=== PATIENT | female | born 1945 | race African-American/Black ===

== ENCOUNTER 2020-05-08 15:32 | Outpatient (REF) | payer MEDICARE, SELFPAY | END 2020-05-08 15:33 | disposition home or self-care (01) | LOC: HO.LAB 15:32 | PROVIDERS: Visit Provider Internal Medicine | DX: Z20.822 Contact with and (suspected) exposure to COVID-19 (principal) | CPT/HCPCS: 36415; C9803; U0003 ==

== ENCOUNTER 2021-04-02 16:21 | Outpatient (REF) | payer MEDICARE, SELFPAY ==
--- NOTE | ~2021-04-02 | XR_ITS ---
EXAMINATION: XR KNEE, RIGHT CLINICAL INFORMATION: Right knee pain COMPARISON: None TECHNIQUE: Four views of the right knee. This includes AP upright view. FINDINGS: No fracture or subluxation. Mild medial compartment joint space narrowing at the patellofemoral compartment joint space narrowing. Enthesophyte formation of the patella. No joint effusion. The soft tissues are unremarkable. XR/XR knee RT 4V IMPRESSION: Mild narrowing of the medial and patellofemoral compartments.
== END 2021-04-02 16:22 | disposition home or self-care (01) ==
LOC: HO.XRAY 16:21
PROVIDERS: PCP Family Medicine; Visit Provider Family Medicine
DX: M25.561 Pain in right knee (principal)
CPT/HCPCS: 73564

== ENCOUNTER 2021-04-06 13:47 | Outpatient (REF) | payer MEDICARE, SELFPAY ==
--- NOTE | ~2021-04-06 | MR_ITS ---
EXAMINATION: MR BRAIN WITHOUT AND WITH CONTRAST CLINICAL INFORMATION: 75-year-old with new onset right-sided headaches and nystagmus. COMPARISON: None. TECHNIQUE: Multiplanar, multisequence MRI of the brain was obtained before and after the intravenous administration of 8.5 mL Gadavist. FINDINGS: Brain Volume: Mild diffuse generalized brain parenchymal volume loss without focal disproportionate regional predominance. Structural: No malformations. Brain and Meninges: DWI sequence demonstrates no restricted diffusion. Specifically, there is no evidence for acute or subacute cerebral ischemia. There are scattered small, subcentimeter foci of FLAIR/T2 signal hyperintensity with no abnormal enhancement seen within the subcortical and deeper white matter of both cerebral hemispheres, which are nonspecific findings but likely reflect small zones of chronic ischemic microangiopathy in a patient of this age. There is no evidence for hemorrhage, hemosiderin staining or abnormal mineral deposition. No extra-axial fluid collections, intracranial mass lesions, abnormal enhancement, space-occupying process or mass effect are identified. Ventricles and Subarachnoid Spaces: The ventricular system and subarachnoid spaces are consistent with mild generalized volume loss without hydrocephalus. Orbital Structures: The visualized orbital structures are grossly unremarkable within the limitations of the study. Vascular: Signal voids are noted in the visualized major intracranial vessels. 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 Osseous marrow signal intensity is otherwise within normal limits. MR/MR head/brain wo/w con IMPRESSION: 1. 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 Migraine associated vasculopathy would be another consideration. 2. No intracranial mass lesion, abnormal enhancement, infarction, extra-axial fluid collection, hemorrhage, space-occupying process, mass effect or hydrocephalus. 3. 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
== END 2021-04-06 13:48 | disposition home or self-care (01) ==
LOC: HO.MRI 13:47
PROVIDERS: PCP Family Medicine; Visit Provider Family Medicine
DX: R51.9 Headache, unspecified (principal)
CPT/HCPCS: 70553; A9585

== ENCOUNTER → 2021-06-20 14:55 | Outpatient (BNVA) | payer MEDICARE, SELFPAY | PROVIDERS: PCP Family Medicine; Visit Provider Physician Assistant | DX: M17.10 Unilateral primary osteoarthritis, unspecified knee (principal) | CPT/HCPCS: 99202 ==

== ENCOUNTER 2021-07-18 11:00 | Outpatient (RCR) | payer MEDICARE, SELFPAY | END 2021-09-10 09:44 | disposition home or self-care (01) | LOC: HO.PT 11:00 | PROVIDERS: PCP Family Medicine; Visit Provider Family Medicine | DX: M25.561 Pain in right knee (principal) | CPT/HCPCS: 97110; 97161 ==

== ENCOUNTER → 2021-09-12 12:41 | Outpatient (REF) | payer MEDICARE, SELFPAY ==
--- NOTE | 2021-09-12 | ECG_ITS ---
Hook-up date: 2021-09-12 11:59:00 Duration: 26:18:00 Test Indications: DIZZINESS Medications: [id number] QRS complexes 26844 Ventricular ectopics which represent 18 % of total QRS comp. 47157 Supraventricular ectopics which represent 11 % of total QRS comp. * Paced QRS complexs which represent % of total QRS comp. VENTRICULAR ECTOPY 77014 Isolated 6917 Bigeminal Cycles 1850 Couplets 22 Runs 74 Beats in Runs 5 Beats LONGEST at 150 BPM at 03:31:15 2021-09-13 3 Beats FASTEST at 182 BPM at 13:31:17 2021-09-12 SUPRAVENTRICULAR ECTOPY 8583 Isolated 1126 Couplets 592 Runs 2446 Beats in Runs 21 Beats LONGEST at 122 BPM at 18:40:50 2021-09-12 3 Beats FASTEST at 187 BPM at 12:48:20 2021-09-12 HEART RATES 46 MIN at 19:38:58 2021-09-12 77 AVG 168 MAX at 13:14:41 2021-09-12 LONGEST RR 1.7680 secs at 20:06:03 2021-09-12 S-T LEVELS Channel 1 - 128 mm at 11:59:00 2021-09-12 - 128 mm at 11:59:00 2021-09-12 Channel 2 - 128 mm at 11:59:00 2021-09-12 - 128 mm at 11:59:00 2021-09-12 Channel 3 - 128 mm at 03:11:81 -- - 128 mm at 03:11:81 Underlying rhythm is sinus; Average ventricular rate 77/min; range 46-168/min; Frequent ventricular ectopy (19% burden); isolated beats, couplets, bigeminy; no significant runs; Frequent supraventricular ectopy (11% burden); short runs noted, longest 21 beats; Patient did not report any symptoms in the diary Referred By: Sunita Lezama Overread By: PATRICIA SAMANIEGO
== END ==
LOC: HO.CARD 12:41
PROVIDERS: PCP Family Medicine; Visit Provider Family Medicine
DX: R42 Dizziness and giddiness (principal)
CPT/HCPCS: 93225; 93226

== ENCOUNTER → 2021-12-17 13:44 | Outpatient (REF) | payer MEDICARE, SELFPAY ==
--- NOTE | 2021-12-17 13:51 | CA_ITS ---
Transthoracic Echocardiogram Patient (Last, First, Middle): Erin Silvestre, Gender: Female Date of : 1945 Age: 76 Procedure Date: 12/17/2021 Procedure Type: Transthoracic Echocardiogram Location: OP Height: 162.56 cm Weight: 81.19 kg BSA: 1.87 m2 Heart Rate: 65 bpm BP: 132 / 74 mmHg Permastone Installer: SB Referring MD: Sunita Lezama MD Symptoms: I49.3 VENTRICULAR PREMATURE DEPOLARIZATION Study Quality: Adequate w contrast ECG Rhythm: Sinus Conclusions: - The left ventricular systolic function is normal. The visually estimated ejection fraction is between 60-65%. - No obvious valvular pathology seen on this study. Findings Procedure Information Contrast agent, definity, is being given per protocol without apparent complications. Left Ventricle Normal left ventricular cavity size. The left ventricular systolic function is normal. The visually estimated ejection fraction is between 60-65%. There is no evidence of regional wall motion abnormalities. Diastolic function is normal for age. There is mild septal asymmetric hypertrophy. Right Ventricle Normal right ventricular cavity size and systolic function. Atria Both atria are normal in size. Aortic Valve There is a normal trileaflet aortic valve. There is no aortic valve stenosis. There is trace (trivial) aortic valve regurgitation. Mitral Valve The mitral valve appears normal. There is trace mitral valve regurgitation. There is no mitral valve stenosis. Pulmonic Valve The pulmonic valve is likely normal. Tricuspid Valve Normal tricuspid valve structure. There is mild tricuspid valve regurgitation. The pulmonary artery systolic pressure is normal. Great Vessels The aortic annulus, sinuses of valsalva, asc aorta, and aortic arch are normal in size. Venous The inferior vena cava is normal in size and collapses greater than 50% with inspiration. Pericardium/Pleural There is no evidence of pericardial effusion. Prior Study Comparison No prior study available for comparison. Recommendations, Care & Conclusions No obvious valvular pathology seen on this study. Measurements 2D Linear Measurements IVSd: 1.27 0.6-0.9/0.6-1.0 cm LVIDd: 5.34 3.9-5.3/4.2-5.9 cm LVIDd Index: 2.86 2.4-3.2/2.2-3.1 cm/m2 LVIDs: 3.43 2.0-3.6 cm LVPWd: 0.96 0.7-1.1 cm LA Diam: 4.50 2.7-3.8/3.0-4.0 cm LAIDs Index: 2.41 1.5-2.3 cm/m2 LV Mass: 293.50 67-162/88-224 g LV Mass Index: 156.95 43-95/49-115 g/m2 LVOT Diam: 2.20 3.0+(-)1.3 cm 2D Systolic Function EF 4C: 69.40 >55% EF 2C: 58.20 >55% Mitral Valve MV Pk E: 0.53 MV PK A: 0.67 MV Decel Time: 215.00 E/A: 0.80 E'Lateral: 5.22 E'Medial: 3.92 E/E' Med: 13.50 E/E' Lat: 10.20 PHT: 63.00 MVA PHT: 3.49 Decel [place]: 2.47 Aortic Valve AoV Pk Luis A: 0.99 AoV Mn Luis A: 0.68 AoV VTI: 0.23 AoV Pk Grad: 4.00 Aov Mn Grad: 2.00 GRIS Cont.VTI: 3.14 LVOT LVOT Pk Luis A: 0.84 LVOT Mn Luis A: 0.57 LVOT VTI: 0.19 LVOT Pk Grad: 3.00 LVOT Mn Grad: 1.00 LVOT Diam: 2.20 LVOT Area: 3.80 Diastolic Function MV Pk E: 0.53 MV Pk A: 0.67 E/A: 0.80 E'Medial: 3.92 E/E' Med: 13.50 E' Laterial: 5.22 E/E' Lat: 10.20 Right Ventricle TAPSE (mm): 18.90 TVS' Luis A: 12.60 Tricuspid Valve TR Pk Luis A: 2.33 TR Pk Grad: 22.00 RA Press: 3.00 RVSP: 25.00 Great Vessels Aorta Sinus of Valsalva: 3.40 2.0-3.5 cm Ao Asc: 3.70 2.1-3.4 cm Ao Arch: 3.10 Ao Desc: 2.40 Pulmonary Valve PV Pk Luis A: 0.57 Peak PV Grad: 1.00 Updated in Other Vendor System with Status of Final Thien Gilliam MD electronically signed on 12/18/2021 11:15:32 AM with status of Final
== END ==
LOC: HO.CARD 13:44
PROVIDERS: Visit Provider Family Medicine
DX: I49.3 Ventricular premature depolarization (principal)
CPT/HCPCS: 93306; Q9957

== ENCOUNTER 2021-12-18 10:43 | Outpatient (REF) | payer MEDICARE, SELFPAY ==
--- NOTE | ~2021-12-18 | MM_ITS ---
EXAMINATION: BONE DENSITOMETRY CLINICAL INDICATION: Menopause. COMPARISON: This is the patient's baseline examination. TECHNIQUE: Using a [employer] DXA System (software version: 13.1) manufactured by [employer], dual-energy x-ray absorptiometry was performed of the lumbar spine and left hip. The images are of good technical quality. Summary results are attached. FINDINGS: AP SPINE L1-L4: BMD 1.015 g/cm2, Z-score -0.2, T-score -1.4, osteopenia. LEFT FEMUR, NECK: BMD 0.852 g/cm2, Z-score 0.1, T-score -1.3, osteopenia. LEFT FEMUR, TOTAL: BMD 0.946 g/cm2, Z-score 0.8, T-score -0.5, normal. IDENTIFIED RISK FACTORS: Menopause, hysterectomy, bilateral oophorectomy. HISTORY OF FRACTURE: None listed. MEDICATIONS: Calcium, vitamin D. MM/XR DEXA axial skeleton IMPRESSION: 1. DIAGNOSIS: Osteopenia based on the lowest T-score value of -1.4 in the lumbar spine applying World Health Organization criteria. 2. 10-YEAR FRACTURE RISK PREDICTION, FRAX: Major osteoporotic fracture (clinical spine, forearm, hip or shoulder) 5.7%. Hip fracture 0.9%. 3. Treatment Recommendations: NOF guidelines recommend consideration for treatment in postmenopausal women and men age 50 and older presenting with the following: -A hip or vertebral (clinical or morphometric) fracture. -T-score less than or equal to -2.5 at the femoral neck or spine after appropriate evaluation to exclude secondary causes. -Low bone mass at the hip or spine and a 10-year fracture probability by FRAX of greater than or equal to 3% for hip fracture or greater than or equal to 20% for major osteoporotic fracture based on the [place] adapted WHO algorithm. 4. Other Recommendations: All treatment decisions require clinical judgment and consideration of individual patient factors, including patient preferences, comorbidities, previous drug use, risk factors not captured in the FRAX model (e.g. frailty, falls, vitamin D deficiency, increased bone turnover, interval significant decline in bone density) and possible under or overestimation of fracture risk by FRAX. Additional medical evaluation for secondary cause of low bone mineral density may be appropriate. FUTURE SCAN RECOMMENDATION: People with diagnosed cases of osteoporosis or at high risk for fracture should have regular bone mineral density tests. For patients eligible for Medicare, routine testing is allowed once every 2 years. The testing frequency can be increased to one year for patients who have rapidly progressing disease, those who are receiving or discontinuing medical therapy to restore bone mass, or have additional risk factors.
== END 2021-12-18 10:44 | disposition home or self-care (01) ==
LOC: HO.MAMMO 10:43
PROVIDERS: Visit Provider Family Medicine
DX: Z13.820 Encounter for screening for osteoporosis (principal); Z78.0 Asymptomatic menopausal state
CPT/HCPCS: 77080

== ENCOUNTER → 2022-02-28 09:09 | Outpatient (BNVA) | payer MEDICARE, SELFPAY | PROVIDERS: PCP Family Medicine; Referring Provider Family Medicine; Visit Provider Internal Medicine Cardiovascular Disease | DX: I49.3 Ventricular premature depolarization (principal); I10 Essential (primary) hypertension | CPT/HCPCS: 93005; 99202 ==

== ENCOUNTER → 2022-04-11 10:16 | Outpatient (REF) | payer OTHER, SELFPAY ==
--- NOTE | 2022-04-11 10:19 | HM_ITS ---
* Total monitoring time 3 days. * Underlying rhythm is sinus. Average ventricular rate 75/Min. Range 54 to 116/Min. * Frequent supraventricular ectopy. [place] of 10%. Numerous short runs. Longest 21 beats. Suspect atrial tachycardia. * Rare ventricular ectopy. Low burden. One 3 beat run. * No pauses or AV blocks. * No patient diary. MTDD
== END ==
LOC: HO.CARD 10:16
PROVIDERS: PCP Family Medicine; Visit Provider Internal Medicine Cardiovascular Disease
DX: I49.3 Ventricular premature depolarization (principal)
CPT/HCPCS: 93242

== ENCOUNTER → 2022-04-17 09:38 | Outpatient (REF) | payer OTHER, SELFPAY ==
--- NOTE | 2022-04-17 09:41 | CA_ITS ---
Acquisition Time: 2022-04-17 10:11:09 Total Exercise Time: 00:00:18 Test Indications: Abnormal ECG Medications: ATORVASTATIN OMEPRAZOLE CARVEDILOL Protocol: ALPHONSO Max HR: 096 BPM 65% of Pred: 146 BPM Max BP: 132/070 mmHG Max Work Load: 1.5 METS Exercise stress test with exercise 18 sec of alphonso protocol and unable to keep up and maneuver walking on treadmill, with report of dizziness. Assisted to sitting position and once dizzines resolved, testing changed to pharmacological stress test with Lexiscan injection, while sitting and kicking legs, with isolated PACs and two brief runs of atrial tach, with normotensive response to injection, with nondiagnostic EKG for ischemia. Nuclear images pending. Test reviewed with Dr Lipscomb. Referred By: Juan Hdz Overread By: JORDAN JEROME
== END ==
LOC: HO.CARD 09:38
PROVIDERS: PCP Family Medicine; Visit Provider Internal Medicine Cardiovascular Disease
DX: I49.3 Ventricular premature depolarization (principal)
CPT/HCPCS: 78452; 93017; A9500; J0280; J2785

== ENCOUNTER → 2022-05-20 09:16 | Outpatient (BNVA) | payer OTHER, SELFPAY | PROVIDERS: PCP Family Medicine; Referring Provider Family Medicine; Visit Provider Internal Medicine Cardiovascular Disease | DX: I49.9 Cardiac arrhythmia, unspecified (principal); I10 Essential (primary) hypertension | CPT/HCPCS: 99212 ==

== ENCOUNTER 2022-06-18 08:17 | Emergency (ER) | payer MEDICARE, SELFPAY ==
--- NOTE | ~2022-06-18 | CT_ITS ---
EXAMINATION: CT ABDOMEN AND PELVIS WITH CONTRAST CLINICAL INFORMATION: Right upper quadrant/right lower quadrant abdominal pain and nausea. COMPARISON: None TECHNIQUE: Multidetector volumetric images were obtained from the superior aspect of the liver through the pubic symphysis following administration 85 mL of Omnipaque 350 intravenous contrast. Sagittal and coronal reformatted images were obtained on the technologist's workstation. Oral contrast: No This CT examination was performed using dose optimization techniques as appropriate, variously including the following: *Automated exposure control *Adjustment of mA and/or kV according to patient size (this includes techniques or standardized protocols for targeted exams where dose is matched to indication/reason for exam; i.e. extremities or head) *Use of iterative reconstruction technique DLP: 587 mGy-cm FINDINGS: LUNG BASES: The lung bases appear clear, with no evidence of inflammation or nodules. LIVER, GALLBLADDER, AND BILIARY TREE: The liver appears unremarkable in size, shape, and attenuation. No focal hepatic lesion or biliary ductal dilatation is appreciated. Status post cholecystectomy. PANCREAS: Unremarkable SPLEEN: Unremarkable ADRENAL GLANDS: Unremarkable KIDNEYS AND URETERS: The kidneys appear unremarkable in size, shape, and attenuation. No hydronephrosis, hydroureter, or calculi seen. BLADDER: Unremarkable GASTROINTESTINAL TRACT: The small and large bowel appear unremarkable. No diverticulosis. Normal-appearing distal ileum and vermiform appendix. ABDOMINAL WALL: No significant hernia is appreciated. LYMPH NODES: No evidence of adenopathy by size criteria. VASCULAR: Unremarkable PELVIC VISCERA: Status post hysterectomy. OSSEOUS STRUCTURES: Moderate disc degenerative change at L5-S1. CT/CT abdomen pelvis w IV con IMPRESSION: Essentially unremarkable CT scans of the abdomen and pelvis with intravenous contrast only.
--- NOTE | 2022-06-18 08:18 | ECG_ITS ---
Test Reason : dizzy Blood Pressure : / mmHG Vent. Rate : 067 BPM Atrial Rate : 067 BPM P-R Int : 120 ms QRS Dur : 088 ms QT Int : 404 ms P-R-T Axes : 055 011 028 degrees QTc Int : 426 ms Normal sinus rhythm Nonspecific ST and T wave abnormality Abnormal ECG No previous ECGs available Referred By: Generic ED Physician Electronically Signed By:PATRICIA SAMANIEGO
[2022-06-18 08:20] VITALS: BP 152/77; PULSE 73; RESP 18; TEMP 36.1; O2SAT 99; BMI 37.5
[2022-06-18 08:42] LABS: MANUAL DIFF FLAG NO
[2022-06-18 08:44] LABS: Basophils Absolute Auto 0.1 X10*3/uL (0.0-0.2); Basophils Percent Auto 0.6 % (0-2); Eosinophils Absolute Auto 0.1 X10*3/uL (0.0-0.4); Eosinophils Percent Auto 1.2 % (0-4); Hematocrit 41.1 % (37.0-47.0); Hemoglobin 13.8 g/dl (12.0-16.0); Imm Gran Abs Auto 0.09 X10*3/uL (0.00-0.03); Imm Gran Pct Auto 0.8 % (0.0-0.4); Lymphocytes Absolute Auto 2.1 X10*3/uL (1.2-4.9); Lymphocytes Percent Auto 19.1 % (20-40); Mean Corpuscular HGB Conc 33.6 g/dl (31.0-35.0); Mean Corpuscular Hemoglobin 29.6 pg (27.0-33.0); Mean Corpuscular Volume 88.2 fL (80.0-98.0); Mean Platelet Volume 9.5 fL (9.4-12.3); Monocytes Percent Auto 8.6 % (2-11); Neutrophils Absolute Auto 7.7 x10*3/uL (2.0-8.3); Neutrophils Percent Auto 69.7 % (45-73); Platelet Count 318 X10*3/uL (160-400); Red Blood Count 4.66 X10*6/uL (4.20-5.50); Red Cell Distribution Width 15.1 % (11.0-16.0)
[2022-06-18 08:57] VITALS: BP 149/80; PULSE 65; RESP 18; TEMP 36.6; O2SAT 97
[2022-06-18 08:59] LABS: Alanine Aminotransferase 23 U/L (0-31); Albumin Level 4.1 g/dL (3.5-5.0); Alkaline Phosphatase 55 U/L (39-117); Anion Gap 13 (12-20); Aspartate Amino Transferase 20 U/L (5-31); Bilirubin Direct 0.2 mg/dL (0.0-0.5); Bilirubin Total 0.5 mg/dL (0.0-1.0); Blood Urea Nitrogen 20 mg/dL (9-16); COVID-19 Test Negative (Negative); Calcium 9.8 mg/dL (8.4-10.2); Carbon Dioxide 26 mmol/L (22-29); Chloride 105 mmol/L (96-108); Creatinine Clr Calc Pharmacy 55.9; Estimated Glomerular Filt Rate > 60; Glucose Random 115 mg/dL (60-115); IDNOW Serial# 16C4AD1C; Lipase 50 U/L (8-78); Potassium 4.6 mmol/L (3.3-5.1); Sodium 139 mmol/L (135-145); Total Protein 6.9 g/dL (6.5-8.0)
[2022-06-18 09:01] LABS: IDNOW Serial# BCCEAD1C; Influenza A Negative (Negative); Influenza B2 Negative (Negative)
[2022-06-18 09:13] LABS: Troponin-I High Sensitivity < 3.5 ng/L (<3.5-17.0)
[2022-06-18] MEDS: Meclizine HCl 25 MG TABLET 50 MG PO (09:58)
[2022-06-18] MEDS: ondansetron HCL 4 MG/2 ML VIAL IVPUSH (09:58)
[2022-06-18] MEDS: 0.9 % Sodium Chloride 1,000 ML 999 ML IVCONT (09:58)
[2022-06-18 10:07] LABS: Magnesium 2.1 mg/dL (1.6-2.6)
[2022-06-18] MEDS: iohexoL 350 MG/ML 100 ML INFUS..BTL 85 ML IV (10:40)
[2022-06-18 11:29] VITALS: BP 141/78; PULSE 68; RESP 16; TEMP 36.6; O2SAT 97
--- NOTE | 2022-06-18 11:56 | ED.ABDPAIN ---
HPI - Abdominal Pain General Chief Complaint: Abdominal Pain Stated Complaint: Vomiting/Abd pain/Dizziness Time Seen by Provider: 06/18/22 09:41 Source: patient and family (Daughter at bedside) Mode of arrival: ambulatory Limitations: language barrier (Citizen [place]-speaking) History of Present Illness HPI narrative: 76yoF with a PMHx of HTN, HLD, GERD, PVC's and vertigo who is Citizen [place]-speaking presenting to the ER with her daughter with complaints of sudden onset of nausea/vomiting with right sided abdominal pain that started earlier this morning around 4-6am. She reports she normally takes medication for her vertigo although due to having nausea/vomiting this morning she took her medication and shortly after vomited therefore she has been having some dizziness. She reports the dizziness is similar to her vertigo episodes this is why she is on the dizziness medication daily. She denies any fevers, chills, change in vision, headaches, neck pain/stiffness, chest pain or shortness of breath, cough, sputum production, dyspnea on exertion, orthopnea palpitations, paresthesias, radiation of the abdominal pain, back pain, flank pain, dysuria, hematuria, abnormal vaginal discharge, black or bloody stools, diarrhea, constipation, lower extremity edema or calf tenderness, recent travel or sick contacts, possible bad food exposure, others with similar symptoms, recent antibiotic usage or any other symptoms complaints or concerns at this time. MD elicited complaint: abdominal pain Pertinent past history: other (See above) Onset (ago): hour(s) (Prior to arrival) Pain Consistency: constant Location: RUQ Severity: moderate Quality: aching Radiation: none Migration to: no migration Exacerbating factors: eating, vomiting and medication Relieving factors: nothing Associated symptoms: nausea, vomiting and chills Related Data Home Medications Medication Instructions Recorded Confirmed atorvastatin 20 mg tablet 20 mg PO DAILY 06/20/21 05/20/22 calcium carbonate 500 mg-vitamin 1 tab PO DAILY 06/20/21 05/20/22 D3 10 mcg (400 unit) chewable tablet clotrimazole 1 % topical cream appl topical 06/20/21 05/20/22 ketotifen fumarate 0.025 % (0.035 1 drp ophthalmic (eye) BID 06/20/21 05/20/22 %) eye drops omeprazole 20 mg capsule,delayed 20 mg PO DAILY PRN heartburn 06/20/21 05/20/22 release polyethylene glycol 3350 17 17 g PO DAILY 06/20/21 05/20/22 gram/dose oral powder carvedilol 3.125 mg tablet 3.125 mg PO BID 02/28/22 05/20/22 diclofenac sodium 75 mg 75 mg PO Q12H 05/20/22 05/20/22 tablet,delayed release meclizine 12.5 mg tablet 12.5 mg PO Q8H PRN dizziness 05/20/22 05/20/22 Previous Rx's Medication Instructions Recorded dicyclomine 10 mg capsule 10 mg PO TID Abdominal cramping 06/18/22 #14 caps ondansetron 4 mg disintegrating 4 mg PO Q8H Nausea and vomiting 06/18/22 tablet #14 tabs Allergies Allergy/AdvReac Type Severity Reaction Status Date / Time penicillin V Allergy Mild Itching Verified 05/20/22 09:21 Review of Systems Review of Systems Constitutional : No Fever, + Chills, No Night Sweats, + Fatigue, + Malaise Cardiovascular : No Chest Pain, No SOB Respiratory : No Cough, No Sputum, No Wheezing, No Dyspnea Gastrointestinal : + Nausea, + Vomiting, No Diarrhea, + abdominal Pain, No Hematochezia, No Melena Genitourinary : No irregular bleeding, No Dysuria, No Urinary Frequency, No Hematuria,No Urinary Incontinence, No Urgency, No Flank Pain Musculoskeletal : No joint pain, + Myalgias, No Joint Swelling Skin : No Skin Lesions, No rash Neuro : No Weakness, No Numbness, No Paresthesias, No Loss of Consciousness, + chronic Dizziness, No Headache Heme/Lymph: No Lymphadenopathy Endocrine : No Temperature Intolerance Yes all other systems are reviewed and are negative [facility] Past Medical History Attestation statement: The following information was validated with the patient. Source: old records reviewed, obtained from family and nursing notes reviewed Medical History HTN (hypertension) Social History Social History Household Members: None Housing: Apartment Alcohol intake: never Patient Tobacco Use Status: Never used Tobacco Smoked in Last 30 Days: No Use of substances other than those prescribed or required for medical reasons: No Advance Directives: No Advance Directives Information Provided: Yes Physical Exam ED Vital Signs: Vital Signs - 24 hr 06/18/22 08:20 06/18/22 08:57 06/18/22 11:29 Temperature 96.9 F 97.9 F 97.9 F Pulse Rate 73 65 68 Respiratory Rate 18 18 16 Blood Pressure 152/77 H 149/80 H 141/78 H Pulse Oximetry 99 97 97 Oxygen Delivery Method Room Air Room Air Room Air BMI result Body Mass Index 37.5 Vital signs reviewed and patient blood pressure 152/77 otherwise all other vitals are within normal limits. Appearance: Alert. Oriented X3. No acute distress. Head: Normal external exam. Normocephalic. Atraumatic. Able to rotate head bilaterally. Eyes: PERRLA. EOMI. No nystagmus noted. Conjunctiva and sclera normal. Eyelids normal. Corneal reflex normal. ENT: EAC normal. TM's Normal. Hearing normal. Pharynx normal. Uvula midline. tongue midline. Moist mucous membranes. No trismus noted. No drooling noted. No muffled voice noted. No nystagmus noted. Neck: Normal inspection. Neck supple. FROM. No adenopathy. Trachea midline. Thyroid Normal. No meningeal signs. No neck mass noted. CVS: Normal heart rate and rhythm. Heart sound normal. No murmurs noted. Pulses normal throughout. Respiratory: No respiratory distress. Painless inspiration. Breath sounds normal. No wheezes/rales/rhonchi noted. Chest nontender. No accessory muscle usage noted or decreased air movement noted. Abdomen: Soft and tenderness palpation to right upper quadrant with guarding. Nondistended. No rigidity. Bowel sounds normal in all 4 quadrants. No distention noted.? No organomegaly noted.? No visible injury noted.? No rebound tenderness.? Negative Rovsing sign.? Negative obturator's sign.? Negative psoas sign.? Negative Hobson sign. Back: No CVA tenderness. Full range of motion noted. Skin: Skin warm and dry. Normal skin color. Normal skin turgor. No rashes/lesions/lacerations noted. Extremities: No lower extremity edema. Extremities exhibit normal range of motion. Extremities nontender. Able to shrug shoulders bilaterally and keep up against resistance. Neuro: Oriented X 3. No motor deficit. No sensory deficit. Reflexes normal. Moving all extremities. No focal motor deficits. Cranial nerves II-XI intact bilaterally. Facial strength normal. Normal cognition. Speech normal. Gait normal. Strength 5/5 throughout. No pronator drift. No tremor noted. No fasciculations noted. No rigidity noted. Muscle tone normal throughout. No asterixis noted. Obtzpy-rd-nxmy test normal. Heel to contreras test normal. Tandem gait normal. Does not sway with eyes open. Romberg test negative. Rapid alternating movement upper extremity normal. Rapid alternating movement lower extremity normal. Hand drop from overhead Misses face. NIHSS score 0. Course Course Course Narrative: 76yoF with a PMHx of HTN, HLD, GERD, PVC's and vertigo who is Citizen [place]speaking presenting to the ER with her daughter with complaints of sudden onset of nausea/vomiting with right sided abdominal pain that started earlier this morning around 4-6am. She reports she normally takes medication for her vertigo although due to having nausea/vomiting this morning she took her medication and shortly after vomited therefore she has been having some dizziness. She reports the dizziness is similar to her vertigo episodes this is why she is on the dizziness medication daily. This patient presents with nausea, vomiting and abd pain. Differential diagnoses includes possible acute gastroenteritis. Abdominal exam without peritoneal signs. Currently euvolemic without evidence of dehydration. No evidence of surgical abdomen or other acute medical emergency including bowel obstruction, viscus perforation, vascular catastrophe, atypical appendicitis, acute cholecystitis at this time. Presentation not consistent with other acute, emergent causes of vomiting at this time. Not consistent with CVA or TIA or ACS as patient reports this is her chronic dizziness and she was unable to take her medication for her dizziness that she takes daily due to her nausea/vomiting. She also has a normal neuro exam. NIH SS score 0. Patient will be a non tPA candidate due to non disabling symptoms. Normal steady gait. Labs reviewed patient with leukocytosis of 11,000. BUN 20. Otherwise all other labs are within normal limits. Patient negative for COVID influenza. CT scan abdomen pelvis unremarkable no acute processes are noted. Patient is now tolerating p.o. fluids. She reports her dizziness has completely resolved. She has a normal steady gait. Reports that she would like to go home does not feel like she needs admission although I did offer admission. Therefore at this time will DC home with symptomatic treatment instructions return if any new or worsening symptoms to follow up with primary care provider. Patient with daughter at bedside understand agree this plan. Medical Decision Making Lab Data MDM Lab Attestation statement: I reviewed the patient's lab results. 06/18/22 08:36 06/18/22 08:35 Labs: Lab Results 06/18/22 06/18/22 06/18/22 Range/Units 08:35 08:35 08:35 WBC (4.8-10.8) X10*3/uL RBC (4.20-5.50) X10*6/uL Hgb (12.0-16.0) g/dl Hct (37.0-47.0) % MCV (80.0-98.0) fL MCH (27.0-33.0) pg MCHC (31.0-35.0) g/dl RDW (11.0-16.0) % Plt Count (160-400) X10*3/uL MPV (9.4-12.3) fL Immature Gran % (Auto) (0.0-0.4) % Neut % (Auto) (45-73) % Lymph % (Auto) (20-40) % [place] % (Auto) (2-11) % Eos % (Auto) (0-4) % Baso % (Auto) (0-2) % Lymph # (Auto) (1.2-4.9) X10*3/uL [place] # (Auto) (0.1-1.2) X10*3/uL Eos # (Auto) (0.0-0.4) X10*3/uL Baso # (Auto) (0.0-0.2) X10*3/uL Abs Immat Gran (auto) (0.00-0.03) X10*3/uL Absolute Neuts (auto) (2.0-8.3) x10*3/uL Absolute Nucleated RBC (0.0-0.012) X10*3/uL Nucleated RBC % (auto) (0.0-0.2) /100WBC Sodium 139 (135-145) mmol/L Potassium 4.6 (3.3-5.1) mmol/L Chloride 105 (96-108) mmol/L Carbon Dioxide 26 (22-29) mmol/L Anion Gap 13 (12-20) BUN 20 H (9-16) mg/dL Creatinine 0.83 (0.5-1.4) mg/dL Estim Creat Clear Calc 55.9 Estimated GFR > 60 Random Glucose 115 (60-115) mg/dL Calcium 9.8 (8.4-10.2) mg/dL Magnesium 2.1 (1.6-2.6) mg/dL Total Bilirubin 0.5 (0.0-1.0) mg/dL Direct Bilirubin 0.2 (0.0-0.5) mg/dL AST 20 (5-31) U/L ALT 23 (0-31) U/L Alkaline Phosphatase 55 (39-117) U/L Troponin I High Sens < 3.5 (<3.5-17.0) ng/L Total Protein 6.9 (6.5-8.0) g/dL Albumin 4.1 (3.5-5.0) g/dL Lipase 50 (8-78) U/L COVID-19 (EVER) (Negative) COVID-19 Clin Com Influenza Type A (ROMA) Negative (Negative) Influenza Type B (ROMA) Negative (Negative) Influenza A & B Note See Note 06/18/22 06/18/22 Range/Units 08:35 08:36 WBC 11.0 H (4.8-10.8) X10*3/uL RBC 4.66 (4.20-5.50) X10*6/uL Hgb 13.8 (12.0-16.0) g/dl Hct 41.1 (37.0-47.0) % MCV 88.2 (80.0-98.0) fL MCH 29.6 (27.0-33.0) pg MCHC 33.6 (31.0-35.0) g/dl RDW 15.1 (11.0-16.0) % Plt Count 318 (160-400) X10*3/uL MPV 9.5 (9.4-12.3) fL Immature Gran % (Auto) 0.8 H (0.0-0.4) % Neut % (Auto) 69.7 (45-73) % Lymph % (Auto) 19.1 L (20-40) % [place] % (Auto) 8.6 (2-11) % Eos % (Auto) 1.2 (0-4) % Baso % (Auto) 0.6 (0-2) % Lymph # (Auto) 2.1 (1.2-4.9) X10*3/uL [place] # (Auto) 1.0 (0.1-1.2) X10*3/uL Eos # (Auto) 0.1 (0.0-0.4) X10*3/uL Baso # (Auto) 0.1 (0.0-0.2) X10*3/uL Abs Immat Gran (auto) 0.09 H (0.00-0.03) X10*3/uL Absolute Neuts (auto) 7.7 (2.0-8.3) x10*3/uL Absolute Nucleated RBC 0.000 (0.0-0.012) X10*3/uL Nucleated RBC % (auto) 0.0 (0.0-0.2) /100WBC Sodium (135-145) mmol/L Potassium (3.3-5.1) mmol/L Chloride (96-108) mmol/L Carbon Dioxide (22-29) mmol/L Anion Gap (12-20) BUN (9-16) mg/dL Creatinine (0.5-1.4) mg/dL Estim Creat Clear Calc Estimated GFR Random Glucose (60-115) mg/dL Calcium (8.4-10.2) mg/dL Magnesium (1.6-2.6) mg/dL Total Bilirubin (0.0-1.0) mg/dL Direct Bilirubin (0.0-0.5) mg/dL AST (5-31) U/L ALT (0-31) U/L Alkaline Phosphatase (39-117) U/L Troponin I High Sens (<3.5-17.0) ng/L Total Protein (6.5-8.0) g/dL Albumin (3.5-5.0) g/dL Lipase (8-78) U/L COVID-19 (EVER) Negative (Negative) COVID-19 Clin Com See Note Influenza Type A (ROMA) (Negative) Influenza Type B (ROMA) (Negative) Influenza A & B Note Independent Interpretation I performed an independent interpretation of an: CT Scan (Unremarkable I reviewed this with the patient and her daughter at bedside they understand) Radiology Impression Discussion of test interpretation with radiology: I have reviewed the radiologist's reading. Radiologist Impression: FINDINGS: LUNG BASES: The lung bases appear clear, with no evidence of inflammation or nodules.? LIVER, GALLBLADDER, AND BILIARY TREE: The liver appears unremarkable in size, shape, and attenuation. No focal hepatic lesion or biliary ductal dilatation is appreciated. Status post cholecystectomy.? PANCREAS: Unremarkable? SPLEEN: Unremarkable? ADRENAL GLANDS: Unremarkable? KIDNEYS AND URETERS: The kidneys appear unremarkable in size, shape, and attenuation. No hydronephrosis, hydroureter, or calculi seen. ? BLADDER: Unremarkable? GASTROINTESTINAL TRACT: The small and large bowel appear unremarkable. No diverticulosis. Normal-appearing distal ileum and vermiform appendix.? ABDOMINAL WALL: No significant hernia is appreciated.? LYMPH NODES: No evidence of adenopathy by size criteria. VASCULAR: Unremarkable PELVIC VISCERA: Status post hysterectomy. OSSEOUS STRUCTURES: Moderate disc degenerative change at L5-S1.? CT/CT abdomen pelvis w IV con IMPRESSION: ? Essentially unremarkable CT scans of the abdomen and pelvis with intravenous contrast only. Independent Historian Clinical information obtained from an independent historian. History obtained from or confirmed by: Other (Daughter at bedside) External Record Review External record reviewed: Inpatient record, Office record, Outpatient record, Prior outpatient labs, Prior outpatient radiology, Primary care record and Outside ED record I viewed the patient's old records in our EMR. Prescription Management I considered prescription management with: Other (Give the patient antiemetics.) Medications Administered Discontinued Medications Generic Name Dose Route Start Last Admin Trade Name Freq PRN Reason Stop Dose Admin Sodium Chloride 1,000 mls @ 999 mls/hr 06/18/22 10:00 06/18/22 10:59 Ns IVCONT 06/18/22 11:00 Infused .Q1H1M ELLIS Infusion Iohexol 85 ml 06/18/22 10:39 06/18/22 10:40 Iohexol 350 Mg/Ml 100 Ml Infus..Btl IV 06/18/22 10:40 85 ml ONCE ONE Administration Meclizine HCl 50 mg 06/18/22 09:52 06/18/22 09:58 Meclizine Hcl 25 Mg Tablet PO 06/18/22 09:53 50 mg ONCE ONE Administration Ondansetron HCl 4 mg 06/18/22 09:50 06/18/22 09:58 Ondansetron Hcl 4 Mg/2 Ml Vial IVPUSH 06/18/22 09:51 4 mg ONCE ONE Administration Discharge Plan Discharge Clinical Impression: Gastroenteritis Patient Disposition: Home, Self-Care Instructions: Gastroenteritis (ED) Prescriptions: New ondansetron 4 mg tablet,disintegrating 4 mg PO Q8H Qty: 14 0RF dicyclomine 10 mg capsule 10 mg PO TID Qty: 14 0RF No Action polyethylene glycol 3350 17 gram/dose powder 17 g PO DAILY clotrimazole 1 % cream topical calcium carbonate-vitamin D3 500 mg-10 mcg (400 unit) tablet,chewable 1 tab PO DAILY atorvastatin 20 mg tablet 20 mg PO DAILY omeprazole 20 mg capsule,delayed release(DR/EC) 20 mg PO DAILY PRN (Reason: heartburn) ketotifen fumarate 0.025 % (0.035 %) drops 1 drp ophthalmic (eye) BID carvedilol 3.125 mg tablet 3.125 mg PO BID diclofenac sodium 75 mg tablet,delayed release (DR/EC) 75 mg PO Q12H meclizine 12.5 mg tablet 12.5 mg PO Q8H PRN (Reason: dizziness) Referrals: Sunita Lezama MD [Primary Care Provider] - 2 days Print Language: Citizen [place]
== END 2022-06-18 12:09 | disposition home or self-care (01) ==
PROVIDERS: Physician Assistant Medical; Emergency Provider Emergency Medicine; PCP Family Medicine
DX: K52.9 Noninfective gastroenteritis and colitis, unspecified (principal); R11.2 Nausea with vomiting, unspecified; I10 Essential (primary) hypertension; E78.5 Hyperlipidemia, unspecified; Z79.02 Long term (current) use of antithrombotics/antiplatelets; Z79.899 Other long term (current) drug therapy; Z20.822 Contact with and (suspected) exposure to COVID-19
CPT/HCPCS: 74177; 80053; 82248; 83690; 83735; 84484; 85025; 87502; 87635; 93005; 99284; 99285; J2405; Q9967

== ENCOUNTER 2022-10-24 17:11 | Emergency (ER) | payer MEDICARE, SELFPAY ==
--- NOTE | 2022-10-24 17:24 | ED_ITS ---
[facility] - General Adult General Chief complaint: Wound/Laceration Stated complaint: right foot laceration Time Seen by Provider: 10/24/22 19:13 Source: patient and family Mode of arrival: ambulatory History of Present Illness HPI narrative: 76-year-old female who presents with laceration to the inferior aspect of the right lateral malleolus. She is not a diabetic and is unsure of her last tetanus shot. Related Data Home Medications Medication Instructions Recorded Confirmed atorvastatin 20 mg tablet 20 mg PO DAILY 06/20/21 05/20/22 calcium carbonate 500 mg-vitamin 1 tab PO DAILY 06/20/21 05/20/22 D3 10 mcg (400 unit) chewable tablet clotrimazole 1 % topical cream appl topical 06/20/21 05/20/22 ketotifen fumarate 0.025 % (0.035 1 drp ophthalmic (eye) BID 06/20/21 05/20/22 %) eye drops omeprazole 20 mg capsule,delayed 20 mg PO DAILY PRN heartburn 06/20/21 05/20/22 release polyethylene glycol 3350 17 17 g PO DAILY 06/20/21 05/20/22 gram/dose oral powder carvedilol 3.125 mg tablet 3.125 mg PO BID 02/28/22 05/20/22 diclofenac sodium 75 mg 75 mg PO Q12H 05/20/22 05/20/22 tablet,delayed release meclizine 12.5 mg tablet 12.5 mg PO Q8H PRN dizziness 05/20/22 05/20/22 Previous Rx's Medication Instructions Recorded dicyclomine 10 mg capsule 10 mg PO TID Abdominal cramping 06/18/22 #14 caps ondansetron 4 mg disintegrating 4 mg PO Q8H Nausea and vomiting 06/18/22 tablet #14 tabs Allergies Allergy/AdvReac Type Severity Reaction Status Date / Time penicillin V Allergy Mild Itching Verified 05/20/22 09:21 Review of Systems Review of Systems: Pertinent positives and negatives as stated in [facility] Past Medical History Source: nursing notes reviewed Medical History HTN (hypertension) Social History Social History Household Members: None Housing: Apartment Alcohol intake: never Patient Tobacco Use Status: Never used Tobacco Smoked in Last 30 Days: No Advance Directives: No Advance Directives Information Provided: Yes Physical Exam ED Vital Signs: Vital Signs - 24 hr 10/24/22 17:25 Temperature 97.3 F Pulse Rate 74 Respiratory Rate 20 Blood Pressure 154/77 H Pulse Oximetry 99 Oxygen Delivery Method Room Air BMI result Body Mass Index 29.0 VITAL SIGNS: Reviewed. GENERAL: Well developed, well nourished, in no acute distress. HEAD: Normocephalic/atraumatic EYES: PERRLA, EOMI EARS: Ext canals without abnormality NOSE: Nares patent bilateral OROPHARYNX: no oral lesions noted, posterior pharynx clear NECK: Supple, no adenopathy LUNGS: Normal breath sounds. No adventitious sounds or accessory muscle use. SpO2<99> CARDIOVASCULAR: Regular rate and rhythm without noted murmurs ABDOMEN: Soft, non-tender, non-distended with bowel sounds. MUSCULOSKELETAL: No tenderness, deformities, or effusions noted on gross inspection. EXTREMITIES: No cyanosis, clubbing or edema; RIGHT ANKLE: 5 cm laceration to the inferior aspect of the right lateral malleolus, full range of motion of the foot is intact. SKIN: Inspection of the skin reveals no rashes NEUROLOGIC: Alert and oriented x 4. Strength and sensation to light touch were grossly intact x 4. Course Course Course Narrative: This is an RME: Additional HPI, ROS, PE not included below will be deferred to primary provider. 76 year old female hx of HTN and PVC presents w/ laceration to R akle cut herself w/ glass which was in a trash bag. Happened [employer]. reports 02/04. Tetanus not UTD Exam w/ NV intact and a laceration to RLE over right lateral malleolus about 3 inches curve shaped. No Visualized FB. Concerns for possible tendon injury. Patient with significant pain with ROM of ankle. Plan- [facility] for sutures Medications Administered Discontinued Medications Generic Name Dose Route Start Last Admin Trade Name Freq PRN Reason Stop Dose Admin Diphtheria/Tetanus/Acell Pertussis 0.5 ml 10/24/22 17:26 10/24/22 18:51 Diphth,Pertus(Acell),Tet Adult 0.5 Ml Syringe IM 10/24/22 17:27 0.5 ml .ONCE ONE Administration Procedures Laceration Laceration 1: Site: lower extremity Side (If applicable): right Size (cm): 5 Description: linear Depth: simple, single layer Local Anesthetic: lidocaine 1% Amount of anesthesia used (mL): 5 Pre-repair: wound explored, irrigated extensively and deep structures intact Skin layer closed with: nylon Size (cm): 4-0 Number of sutures: 7 Technique: simple, interrupted and other (Three vertical retention sutures placed) Medical Decision Making Medical Decision Making MDM Narrative: 76-year-old female with 5 cm laceration to the right foot, not diabetic, received Tdap, 7 sutures 3 of which are vertical retention, patient tolerated procedure well and is otherwise discharged home in stable condition. Discharge Plan Discharge Clinical Impression: Foot laceration Patient Disposition: Home, Self-Care Instructions: Care For Your Stitches (ED), Laceration (ED) Additional Instructions: 1. Deber? retirar las suturas en 7 d?as. 2. Limpiar diariamente con agua y jab?n, secar, volver a aplicar shabnam?ento antibi?niya y luego volver a aplicar el vendaje Balta. Regrese a la eron de emergencias por cualquier fiebre, escalofr?os, drenaje purulento. 1. You will need to have the sutures removed in 7 days. 2. Please cleanse daily with soap and water, blot dry, reapply antibiotic ointment, then reapply the Balta bandage. Return to the ER for any fevers, chills, purulence drainage. Prescriptions: No Action ondansetron 4 mg tablet,disintegrating 4 mg PO Q8H Qty: 14 0RF dicyclomine 10 mg capsule 10 mg PO TID Qty: 14 0RF polyethylene glycol 3350 17 gram/dose powder 17 g PO DAILY clotrimazole 1 % cream topical calcium carbonate-vitamin D3 500 mg-10 mcg (400 unit) tablet,chewable 1 tab PO DAILY atorvastatin 20 mg tablet 20 mg PO DAILY omeprazole 20 mg capsule,delayed release(DR/EC) 20 mg PO DAILY PRN (Reason: heartburn) ketotifen fumarate 0.025 % (0.035 %) drops 1 drp ophthalmic (eye) BID carvedilol 3.125 mg tablet 3.125 mg PO BID diclofenac sodium 75 mg tablet,delayed release (DR/EC) 75 mg PO Q12H meclizine 12.5 mg tablet 12.5 mg PO Q8H PRN (Reason: dizziness) Referrals: Sunita Lezama MD [Primary Care Provider] - Print Language: Tajik
[2022-10-24 17:25] VITALS: BP 154/77; PULSE 74; RESP 20; TEMP 36.3; O2SAT 99; BMI 29.0
[2022-10-24] MEDS: Diphth,Pertus(ACell),Tet Adult 0.5 ML SYRINGE IM (18:51)
[2022-10-24] MEDS: Lidocaine HCl 1 % MPF 2 ML VIAL 4 ML INFILTRATI (20:20)
[2022-10-24] MEDS: Bacitracin Oint 0.9 GM PACKET 1 APPL TOPICAL (20:36)
== END 2022-10-24 20:57 | disposition home or self-care (01) ==
PROVIDERS: Emergency Provider Student in an Organized Health Care Education/Training Program; PCP Family Medicine
DX: S91.311A Laceration without foreign body, right foot, initial encounter (principal); S90.811A Abrasion, right foot, initial encounter; W45.8XXA Other foreign body or object entering through skin, initial encounter; Y93.9 Activity, unspecified; Y92.9 Unspecified place or not applicable; Y99.9 Unspecified external cause status; Z23 Encounter for immunization; Z79.899 Other long term (current) drug therapy
CPT/HCPCS: 12002; 90471; 90715; 99284

== ENCOUNTER 2023-05-22 12:46 | Outpatient (AMB) | payer OTHER, SELFPAY ==
[2023-05-22 12:53] VITALS: BP 120/72; PULSE 63; BMI 31.3
--- NOTE | 2023-05-22 12:53 | A.OFFVIS_ITS ---
Intake Vital Signs 05/22/23 12:53 Height 5 ft 6 in Weight 194 lb 0.108 oz BMI 31.3 BP 120/72 Blood Pressure Location Lt brachial Position Sitting Pulse 63 Pulse Source Monitor Intake Visit Reasons: 1 yr f/u Learning And Development Manager Required: No Allergies penicillin V Allergy (Mild, Verified 05/22/23 12:59) Itching Medication List - Last Reconciled 05/22/23 by Michelle Ghotra, YIELD CLERK-C amlodipine 5 mg PO DAILY atorvastatin 20 mg PO DAILY calcium carbonate-vitamin D3 500 mg-10 mcg (400 unit) 1 tab PO DAILY carvedilol 3.125 mg PO BID clotrimazole 1% appl topical diclofenac sodium 75 mg PO Q12H dicyclomine 10 mg PO TID ketotifen fumarate 0.025%(0.035%) 1 drp ophthalmic (eye) BID meclizine 12.5 mg PO Q8H PRN omeprazole 20 mg PO DAILY PRN polyethylene glycol 3350 17 grams PO DAILY HPI 1 yr f/u HPI Details Erin is a 77-year-old female with past medical history of hypertension, PVCs, palpitations who presents for follow-up. Today she reports that she will feel periodic heart palpitations that last only a second. She does have frequent dizziness that she relates to vertigo. She tells me she does go to physical therapy to have the Crystal's adjusted. She has not had any presyncope, syncope, falls. No chest discomfort at rest or with activity. No shortness of breath, PND, orthopnea or edema. [facility] Medical History HTN (hypertension) Social History Household Members: None Housing: Apartment Alcohol intake: never Patient Tobacco Use Status: Never used Tobacco Review of Systems Const All systems reviewed & are unremarkable except as noted in HPI and below ENT Reports dizziness Card Reports rapid heart rate, Denies palpitations, Reports dyspnea and Reports dysp chad on exertion Resp Reports dyspnea and Reports dyspnea on exertion GI Denies hematochezia and Denies change in stool character Musc Denies abnormal gait, Denies limited range of motion, Denies muscle cramps, Denies muscle weakness, Denies numbness, Denies radiating pain into limb, Denies stiffness and Denies tingling Neuro Denies abnormal gait, Reports dizziness, Denies numbness and Denies tingling Endo Denies palpitations Physical Exam Vital Signs: Last Vital Signs Pulse 63 05/22/23 12:53 BP 120/72 05/22/23 12:53 BMI result Body Mass Index 31.3 Const General: cooperative, healthy appearing, comfortable and no acute distress Orientation/consciousness: patient oriented x3 Neck Neck: Yes normal visual inspection and Yes no JVD Resp Effort & Inspection: normal respiratory effort Auscultation: clear to auscultation bilaterally, no crackles, no rales, no rhonchi and no wheezes Cardio Jugular venous distension: no JVD Rate: regular rate Rhythm: regular rhythm Heart sounds: S1 normal heart sound present, S2 normal heart sound present, no murmurs and no rubs Neuro General: patient oriented x3 Extrem General: Yes normal to inspection, No no pedal edema and No calf tenderness Psych Appearance: grossly normal Mental Status: mental status grossly normal Speech and movement: Normal speech and movement present Office Procedures EKG Details: Today, read by me, normal sinus rhythm, low-voltage QRS, can not exclude prior anterior infarct, rate 63, QTC 407 milliseconds [id number], Complete Assessment & Plan Assessment & Plan (1) Cardiac arrhythmia: Code(s): I49.9 - Cardiac arrhythmia, unspecified Plan: Reports of heart palpitations. She has periodic Dizziness which is most likely related to vertigo. No presyncope, syncope, falls. Echocardiogram done 12/17/2021 showed EF 60-65%, no valve abnormalities. Holter monitor done 04/11/2022 for 3 days showed sinus rhythm with average heart rate 75, heart rate range 54 to 116, frequent supra ventricular ectopy, burden 10%, numerous short runs longest 21 beats, suspected atrial tachycardia, rare ventricular ectopy. A nuclear stress test done 04/18/2022 showed normal myocardial perfusion imaging. She was put on carvedilol 3.125 mg b.i.d.. Today she reports that she will feel occasional palpitations only lasting seconds. She is not overly bothered by this. Will continue carvedilol at current dose. She is due for labs, will have her update them. Reviewed good hydration, adequate sleep, med compliance, vagal maneuvers. Cardiology office visit in 1 year, sooner if needed (2) Palpitation: Code(s): R00.2 - Palpitations Plan: As above (3) HTN (hypertension): Code(s): I10 - Essential (primary) hypertension Plan: Normal range at present. Continue carvedilol and amlodipine. Plan Time spent on chart review, documentation, interview and assessment Orders: Orders Complete Blood Count no Diff Today I10 - Essential (primary) hypertension, R00.2 - Palpitations Lipid Panel Today E66.9 - Obesity, unspecified Comprehensive Met. Panel Today I10 - Essential (primary) hypertension, R00.2 - Palpitations Coding Level of Care Code Est Pt Level 3 (16066) Diagnoses Cardiac arrhythmia I49.9 Palpitation R00.2 HTN (hypertension) I10 CPT Codes EKG - CPT: 01537-[id number], Complete ([id number]) Time Spent (min) 24
== END 2023-05-22 13:23 | disposition home or self-care (01) ==
PROVIDERS: Visit Provider Nurse Practitioner Family
DX: I49.9 Cardiac arrhythmia, unspecified (principal); R00.2 Palpitations; I10 Essential (primary) hypertension
CPT/HCPCS: 93010; 99213

== ENCOUNTER → 2023-05-22 12:46 | Outpatient (BNVA) | payer OTHER, SELFPAY | PROVIDERS: Visit Provider Nurse Practitioner Family | DX: I49.9 Cardiac arrhythmia, unspecified (principal); R00.2 Palpitations; I10 Essential (primary) hypertension | CPT/HCPCS: 93005; 99212 ==

== ENCOUNTER 2023-06-19 09:22 | Outpatient (REF) | payer OTHER, SELFPAY ==
[2023-06-19 11:35] LABS: Hematocrit 39.2 % (37.0-47.0); Hemoglobin 12.7 g/dl (12.0-16.0); Mean Corpuscular HGB Conc 32.4 g/dl (31.0-35.0); Mean Corpuscular Hemoglobin 27.5 pg (27.0-33.0); Platelet Count 314 X10*3/uL (160-400); Red Blood Count 4.61 X10*6/uL (4.20-5.50); Red Cell Distribution Width 16.1 % (11.0-16.0); White Blood Count 8.7 X10*3/uL (4.8-10.8)
[2023-06-19 12:03] LABS: Alanine Aminotransferase 13 U/L (0-31); Albumin Level 4.3 g/dL (3.5-5.0); Alkaline Phosphatase 91 U/L (39-117); Anion Gap 13 (12-20); Aspartate Amino Transferase 19 U/L (5-31); Bilirubin Total 0.5 mg/dL (0.0-1.0); Blood Urea Nitrogen 15 mg/dL (9-16); Calcium 9.7 mg/dL (8.4-10.2); Carbon Dioxide 26 mmol/L (22-29); Chloride 105 mmol/L (96-108); Cholesterol 268 mg/dL (<200); Estimated Glomerular Filt Rate > 60; Glucose Random 91 mg/dL (60-115); HDL Cholesterol 78 mg/dL (>40); LDL Cholesterol Calculated 167 mg/dL (<100); Potassium 4.4 mmol/L (3.3-5.1); Sodium 140 mmol/L (135-145); Triglycerides 115 mg/dL (<150)
[2023-06-19 12:05] LABS: TSH reflex Free T4 1.78 uIU/mL (0.32-4.0)
[2023-06-19 12:12] LABS: Creatinine Urine 75.64 mg/dL; Microalbum/Creatinine Ratio Ur 6.6 ug/mg cr (<30)
== END 2023-06-19 09:23 | disposition home or self-care (01) ==
LOC: HO.HHCL 09:22
PROVIDERS: Nurse Practitioner Family; Visit Provider Family Medicine
DX: E66.9 Obesity, unspecified (principal); R00.2 Palpitations; I10 Essential (primary) hypertension
CPT/HCPCS: 36415; 80053; 80061; 82043; 82570; 84443; 85027

== ENCOUNTER 2023-08-22 10:00 | Outpatient (RCR) | payer OTHER, SELFPAY ==
[2023-07-28 10:00] VITALS: BP 130/60; PULSE 61
== END 2023-08-22 11:03 | disposition home or self-care (01) ==
LOC: HO.PT 10:00
PROVIDERS: PCP Family Medicine; Visit Provider Family Medicine
DX: H81.10 Benign paroxysmal vertigo, unspecified ear (principal)
CPT/HCPCS: 97110; 97112; 97162

== ENCOUNTER 2023-12-31 09:36 | Outpatient (REF) | payer OTHER, SELFPAY ==
--- NOTE | ~2023-12-31 | XR_ITS ---
EXAMINATION: XR SHOULDER, LEFT CLINICAL INFORMATION: Left shoulder pain. COMPARISON: None available. TECHNIQUE: AP, Grashey, and scapular Y views of the left shoulder. FINDINGS: Moderate acromioclavicular osteoporosis with prominent subacromial spurring. Degenerative spurring at the greater tuberosity. No glenohumeral joint space narrowing or marginal osteophytes. No osseous erosion. No acute fracture or dislocation. XR/XR shoulder LT min 2V IMPRESSION: Moderate acromioclavicular osteoarthritis with prominent subacromial spurring. Electronically signed by: Luis Lynch MD 01/05/2024 10:24 PM EDT
--- NOTE | ~2023-12-31 | XR_ITS ---
EXAMINATION: XR WRIST, LEFT CLINICAL INFORMATION: Left wrist pain. COMPARISON: None available. TECHNIQUE: PA, lateral, and oblique views of the left wrist. FINDINGS: No acute fracture or dislocation. Mild joint space narrowing with small marginal osteophytes at the triscaphe and first carpometacarpal joints as well as at the first metacarpophalangeal joint. No osseous erosion. No abnormal soft tissue calcification. XR/XR wrist LT min 3V IMPRESSION: Mild osteoarthritis at the triscaphe and first carpometacarpal joints as well as at the first metacarpophalangeal joint. Electronically signed by: Luis Lynch MD 01/05/2024 10:24 PM EDT
== END 2023-12-31 09:37 | disposition home or self-care (01) ==
LOC: HO.HHCX 09:36
PROVIDERS: Visit Provider Family Medicine
DX: M25.512 Pain in left shoulder (principal); M25.532 Pain in left wrist
CPT/HCPCS: 73030; 73110

== ENCOUNTER 2024-03-08 09:41 | Outpatient (AMB) | payer OTHER, SELFPAY ==
--- NOTE | 2024-03-08 10:07 | MHC.OFFVIS ---
Vital Signs 03/08/24 10:21 Height 5 ft 6 in Weight 198 lb 13.711 oz BMI 32.1 BP 102/70 Blood Pressure Location Rt brachial Position Sitting Pulse 56 Pulse Source Pulse Oximeter Pulse Oximetry (%) 97 Oxygen Delivery Method Room Air Intake Visit Reasons: Joint Pain/ self ref OK per MD/CM Intake Note: Patient presents for joint pain. Merchandise Supervisor Required: Yes Merchandise Supervisor Language: Sustainability Analyst Services: Merchandise Supervisor Offered & Declined Merchandise Supervisor Name: Latosha Brasher Information Interpreted: non-clinical & clinical Hand Zipper Trimmer: Hand Zipper Trimmer Present Accompanied by: Grand Child Allergies penicillin V Allergy (Mild, Verified 03/08/24 10:12) Itching Medication List - Last Reconciled 03/08/24 by Vance Edgar MD amlodipine 5 mg PO DAILY atorvastatin 40 mg PO DAILY calcium carbonate-vitamin D3 500 mg-10 mcg (400 unit) 1 tab PO DAILY carvedilol 3.125 mg PO BID clotrimazole 1% appl topical diclofenac sodium 75 mg PO Q12H dicyclomine 10 mg PO TID ketotifen fumarate 0.025%(0.035%) 1 drp ophthalmic (eye) BID meclizine 12.5 mg PO Q8H PRN omeprazole 20 mg PO DAILY PRN polyethylene glycol 3350 17 grams PO DAILY HPI Comments Details: This is a 78-year-old female who presents for evaluation of diffuse pain. She presents with her granddaughter. Patient states that she has diffuse pain, especially her shoulders, neck, low back, knees. She states that she gets injections periodically in her knee, shoulders. She also feels that her joints are swollen. [facility] Medical History HTN (hypertension) Surgical History History of rotator cuff surgery History of carpal tunnel repair Family History Father Cancer Mother Dementia Sister Breast cancer in female Daughter Thyroid cancer Social History Household Members: None Housing: Apartment Alcohol intake: never Patient Tobacco Use Status: Never used Tobacco Review of Systems Const Reports fatigue and Reports weakness Musc Reports back pain, Reports arthralgias, Reports joint swelling, Reports numbness and Reports stiffness Neuro Reports numbness and Reports weakness Endo Reports fatigue Physical Exam Vital Signs: Last Vital Signs Pulse 56 03/08/24 10:21 BP 102/70 03/08/24 10:21 Pulse Ox 97 03/08/24 10:21 Oxygen Delivery Method Room Air 03/08/24 10:21 BMI result Body Mass Index 32.1 Const General: cooperative, healthy appearing and comfortable Nutritional Appearance: obese Orientation/consciousness: patient oriented x3 Limitations: ambulation with cane HEENT Head: Yes normocephalic and Yes atraumatic Mouth: moist mucous membranes Resp Effort & Inspection: normal respiratory effort and able to speak in complete sentences Skin General skin exam: no rashes or lesions noted Neuro General: patient oriented x3 Extrem Other: Osteoarthritic changes of both hands with squaring of the 1st CMC joint Bilateral tender 1st CMC joint Prominent Heberden's node bilateral 5th fingers Normal bilateral hand enlisted aircrew/aerial observer/gunner strength Normal pain-free range of motion of elbows and shoulders Multiple fibromyalgia tender points Assessment & Plan Assessment & Plan (1) Fibromyalgia, primary: Code(s): M79.7 - Fibromyalgia Category: Medical Plan: This is a 78-year-old female who presents for evaluation of diffuse pain. Upon evaluation I do not see any evidence of an underlying autoimmune rheumatic disease. Clinical picture consistent with fibromyalgia. Her fibromyalgia likely amplifies her osteoarthritic pain. Discussed management of fibromyalgia with patient. Is a noninflammatory, non-autoimmune central afferent processing disorder leading to a diffuse pain syndrome. I suggested that patient try to address her underlying psychiatric issues, anxiety. I suggested evaluation by a therapist and/or a psychiatrist. Try to follow sleep hygiene practices. Consider a referral for a sleep study to rule out ANA by PCP. Patient would benefit from increased physical activity, either through formal physical therapy or by joining a gym. Advised patient that she should start activity slowly and increase as tolerated. Consider low-impact exercises such as walking, swimming, aqua therapy Follow-up with PCP Plan I spent 30 minutes reviewing patient's chart, evaluating patient, counseling patient and documenting in the chart Coding Level of Care Code New Pt Level 3 (96718) Diagnoses Fibromyalgia, primary M79.7
[2024-03-08 10:21] VITALS: BP 102/70; PULSE 56; O2SAT 97; BMI 32.1
== END 2024-03-08 10:46 | disposition home or self-care (01) ==
PROVIDERS: PCP Family Medicine; Visit Provider Student in an Organized Health Care Education/Training Program
DX: M79.7 Fibromyalgia (principal)
CPT/HCPCS: 99203

== ENCOUNTER → 2024-03-08 09:41 | Outpatient (BNVA) | payer OTHER, SELFPAY | PROVIDERS: PCP Family Medicine; Visit Provider Student in an Organized Health Care Education/Training Program | DX: M79.7 Fibromyalgia (principal) | CPT/HCPCS: 99202 ==

== ENCOUNTER 2024-05-14 09:26 | Outpatient (AMB) | payer OTHER, SELFPAY ==
[2024-05-14 09:48] VITALS: BP 138/78; PULSE 59; BMI 32.7
--- NOTE | 2024-05-14 09:48 | MHC.OFFVIS ---
Vital Signs 05/14/24 09:48 Height 5 ft 6 in Weight 202 lb 13.204 oz BMI 32.7 BP 138/78 Blood Pressure Location Lt brachial Position Sitting Pulse 59 Pulse Source Monitor Intake Visit Reasons: 1 yr follow up Analytical Research Program Manager Required: Yes Analytical Research Program Manager Services: Analytical Research Program Manager Offered & Declined Accompanied by: Grand Child Allergies penicillin V Allergy (Mild, Verified 03/08/24 10:12) Itching Medication List - Last Reconciled 05/14/24 by Michelle Ghotra NP-C amlodipine 5 mg PO DAILY atorvastatin 40 mg PO DAILY calcium carbonate-vitamin D3 500 mg-10 mcg (400 unit) 1 tab PO DAILY carvedilol 3.125 mg PO BID clotrimazole 1% appl topical diclofenac sodium 75 mg PO Q12H dicyclomine 10 mg PO TID ketotifen fumarate 0.025%(0.035%) 1 drp ophthalmic (eye) BID meclizine 12.5 mg PO Q8H PRN omeprazole 20 mg PO DAILY PRN polyethylene glycol 3350 17 grams PO DAILY HPI HPI 1 yr follow up: Details: Erin is a 78-year-old female with past medical history of hypertension, PVCs, palpitations who presents for follow-up. Today she reports that she has been doing well with less heart palpitations overall. She has no presyncope, syncope, falls. She does get intermittent dizziness and was told she has vertigo. She has undergone physical therapy with improvement however the symptoms are starting to come back. She does take her meclizine as directed. No chest discomfort at rest or with activity. No concerning shortness of breath, PND, orthopnea. She has some swelling in her right knee which she relates to arthritis. She also has soreness in her left shoulder and neck with movement. She tells me she does follow with an orthopedic doctor and has had knee injections in the past. She is ambulating with a cane. Niece is present and assisting with [place]an translation. [facility] Medical History HTN (hypertension) Surgical History History of rotator cuff surgery History of carpal tunnel repair Family History Father Cancer Mother Dementia Sister Breast cancer in female Daughter Thyroid cancer Social History Household Members: None Housing: Apartment Alcohol intake: never Patient Tobacco Use Status: Never used Tobacco Review of Systems Const All systems reviewed & are unremarkable except as noted in HPI and below Denies weakness ENT Denies dizziness Card Denies chest pain, Denies chest pain with activity, Denies syncope, Denies rapid heart rate, Denies pedal edema, Denies edema, Denies leg edema, Denies lightheadedness, Denies palpitations, Denies dyspnea, Denies dyspnea on exertion and Denies orthopnea Resp Denies cough, Denies dyspnea and Denies dyspnea on exertion GI Denies hematochezia and Denies change in stool character Musc Details: reports arthritis pain in left shoulder, neck and right knee. Ambualtes slowly with cane Reports abnormal gait, Denies muscle cramps, Denies muscle weakness, Denies numbness, Reports radiating pain into limb and Denies tingling Neuro Reports abnormal gait, Denies dizziness, Denies syncope, Denies numbness, Denies tingling and Denies weakness Endo Denies palpitations Physical Exam Vital Signs: BMI result Body Mass Index 32.7 Const Other: appears uncomfortable with movement due to her right knee pain- rubbing her knee General: cooperative, healthy appearing and no acute distress Orientation/consciousness: patient oriented x3 Neck Neck: Yes normal visual inspection Resp Effort & Inspection: normal respiratory effort Auscultation: clear to auscultation bilaterally, no crackles, no rales, no rhonchi and no wheezes Cardio Rate: regular rate Rhythm: regular rhythm Heart sounds: S1 normal heart sound present, S2 normal heart sound present, no murmurs and no rubs Neuro General: patient oriented x3 Extrem General: Yes normal to inspection, No no pedal edema and No calf tenderness Psych Appearance: grossly normal Mental Status: mental status grossly normal Speech and movement: Normal speech and movement present Office Procedures EKG Details: Today, read by me, SB, low voltage QRS, nonspecific T wave abn, rate 59 [id number], Complete Assessment & Plan Assessment & Plan (1) Cardiac arrhythmia: Code(s): I49.9 - Cardiac arrhythmia, unspecified Category: Medical Plan: Prior reports of heart palpitations and found to have PACs and short atrial runs. Echocardiogram done 12/17/2021 showed EF 60-65%, no valve abnormalities. Holter monitor done 04/11/2022 for 3 days showed sinus rhythm with average heart rate 75, heart rate range 54 to 116, frequent supraventricular ectopy, burden 10%, numerous short runs longest 21 beats, suspected atrial tachycardia, rare ventricular ectopy. A nuclear stress test done 04/18/2022 showed normal myocardial perfusion imaging. She was put on carvedilol 3.125 mg b.i.d. and she has been doing well since that time. Today she reports that she has not been bothered recently by heart palpitations. EKG done today showing sinus bradycardia, nonspecific T-wave abnormality, low-voltage QRS, unchanged from prior, rate 59. Reviewed limit of caffeinated beverage to 1 per day, the benefit of good hydration, adequate sleep, med compliance. Will have her continue carvedilol. Cardiology office visit in 1 year, sooner if needed (2) Palpitation: Code(s): R00.2 - Palpitations Category: Medical Plan: As above (3) HTN (hypertension): Code(s): I10 - Essential (primary) hypertension Category: Medical Plan: Normal range at present. Continue carvedilol and amlodipine. Plan Time spent on chart review, documentation, interview and assessment Coding Level of Care Code Est Pt Level 3 (21763) Complex EM visit Add On G2211 Diagnoses Cardiac arrhythmia I49.9 Palpitation R00.2 HTN (hypertension) I10 CPT Codes EKG - CPT: 98320-[id number], Complete ([id number]) Time Spent (min) 24
== END 2024-05-14 10:19 | disposition home or self-care (01) ==
PROVIDERS: PCP Family Medicine; Visit Provider Nurse Practitioner Family
DX: I49.9 Cardiac arrhythmia, unspecified (principal); R00.2 Palpitations; I10 Essential (primary) hypertension
CPT/HCPCS: 93010; 99213; G2211

== ENCOUNTER 2024-05-14 10:41 | Outpatient (REF) | payer OTHER, SELFPAY ==
[2024-05-14 13:09] LABS: Alanine Aminotransferase 17 U/L (0-31); Albumin Level 4.2 g/dL (3.5-5.0); Alkaline Phosphatase 86 U/L (39-117); Anion Gap 8 (12-20); Aspartate Amino Transferase 19 U/L (5-31); Bilirubin Total 0.8 mg/dL (0.0-1.0); Blood Urea Nitrogen 16 mg/dL (9-16); Calcium 8.9 mg/dL (8.4-10.2); Carbon Dioxide 28 mmol/L (22-29); Chloride 110 mmol/L (96-108); Estimated Glomerular Filt Rate > 60; Glucose Random 95 mg/dL (60-115); Potassium 4.2 mmol/L (3.3-5.1); Sodium 142 mmol/L (135-145); Total Protein 7.6 g/dL (6.5-8.0)
== END 2024-05-14 10:42 | disposition home or self-care (01) ==
LOC: HO.10HDL 10:41
PROVIDERS: Visit Provider Nurse Practitioner Family
DX: R00.2 Palpitations (principal); I10 Essential (primary) hypertension; I49.9 Cardiac arrhythmia, unspecified
CPT/HCPCS: 36415; 80053; 93005; 99212

== ENCOUNTER 2024-07-01 10:03 | Outpatient (REF) | payer OTHER, SELFPAY ==
--- NOTE | ~2024-07-01 | XR_ITS ---
EXAMINATION: XR LUMBOSACRAL SPINE CLINICAL INFORMATION: M54.9 - Dorsalgia, unspecified COMPARISON: None available. TECHNIQUE: Three views of the lumbosacral spine. FINDINGS: Endplate sclerosis and decreased intervertebral disc height at L5-S1. Facet joint hypertrophy at L3-4, L4-5 and L5-S1. Multilevel mild marginal osteophyte formation and endplate sclerosis throughout the lower thoracic and lumbar spine. No gross malalignment. No acute cortical disruption. Vascular calcifications. Vascular clips in the right upper quadrant abdomen. XR/XR lumbar spine 2-3V IMPRESSION: Multilevel spondylosis more conspicuous at L5-S1. Electronically signed by: Kunal Márquez MD 07/05/2024 10:10 AM EDT
--- OUTSIDE RECORDS SUMMARY | 2024-07-01 11:54 | XMS_ITS | Encounter Summary ---
Author Organization [facility] Address [address] [place] [address] Care Team Providers Care Insurance Verification Representative Name Role Phone Kamla Cano MD Primary Care Provider Charles Haro, Pcp Primary Care Provider Helen e Encounter Details Date Type Department Care Team Description 04/26/2019 Release of Information Medical Records [address] [place] [id number] Abstract, Provider Social History Tobacco Use Types Packs/Day Years Used Date Smoking Tobacco: Never Smokeless Tobacco: Never Sex Assigned at Date Recorded Not on file Job Start Date Occupation Industry Not on file Not on file Not on file documented as of this encounter Plan of Treatment Not on file documented as of this encounter Visit Diagnoses Not on filedocumented in this encounter Care Teams Insurance Verification Representative Relationship Specialty Start Date End Date Kamla Cano MD PCP - General Internal Medicine 07/11/17 12/16/22 [facility], Pcp PCP - General Internal Medicine 12/17/22 documented as of this encounter
--- OUTSIDE RECORDS SUMMARY | 2024-07-01 11:55 | XMS_ITS | Encounter Summary ---
Author Organization [facility] Address [address] [place] [address] Care Team Providers Care Mining Detail Draftsperson Name Role Phone Kamla Cano MD Primary Care Provider Charles Haro, Pcp Primary Care Provider Helen peterson Encounter Details Date Type Department Care Team Description 02/04/2020 Physical Therapist Aide Report Medical Records [address] [place] [address] Glenn Izaguirre MD Social History Tobacco Use Types Packs/Day Years Used Date Smoking Tobacco: Never Smokeless Tobacco: Never Sex Assigned at Date Recorded Not on file Job Start Date Occupation Industry Not on file Not on file Not on file COVID-19 Exposure Response Date Recorded In the last month, have you been in contact with someone who was confirmed or suspected to have Coronavirus / COVID-19? No / Unsure 01/17/2020 3:55 PM EDT documented as of this encounter Plan of Treatment Not on file documented as of this encounter Visit Diagnoses Not on filedocumented in this encounter Care Teams Mining Detail Draftsperson Relationship Specialty Start Date End Date Kamla Cano MD PCP - General Internal Medicine 07/11/17 12/16/22 [facility], Pcp PCP - General Internal Medicine 12/17/22 documented as of this encounter
--- OUTSIDE RECORDS SUMMARY | 2024-07-01 11:55 | XMS_ITS | Encounter Summary ---
Author Organization [facility] Address [address] [place] [address] Care Team Providers Care Oil Burner Technician Name Role Phone Kamla Cano MD Primary Care Provider Charles Haro, Pcp Primary Care Provider Helen e Encounter Details Date Type Department Care Team Description 12/01/2020 Stenotypist Report Medical Records [address] [place] [address] Glenn Izaguirre MD Social History Tobacco Use [...] on filedocumented in this encounter Care Teams Oil Burner Technician Relationship Specialty Start Date End Date Kamla Cano MD PCP - General Internal Medicine 07/11/17 12/16/22 [facility], Pcp PCP - General Internal Medicine 12/17/22 documented as of this encounter
--- OUTSIDE RECORDS SUMMARY | 2024-07-01 11:55 | XMS_ITS | Encounter Summary ---
Author Organization [facility] Address [address] [place] [address] Care Team Providers Care Funeral Location Manager Name Role Phone Kamla Cano MD Primary Care Provider Charles Haro, Pcp Primary Care Provider Helen peterson Encounter Details Date Type Department Care Team Description 08/25/2020 Mushroom Cultivator Report Medical Records [address] [place] [address] Ca[facility], [facility] Social History Tobacco Use Types Packs/Day Years Used Date Smoking Tobacco: Never Smokeless Tobacco: Never Sex Assigned at Date Recorded Not on file Job Start Date Occupation Industry Not on file Not on file Not on file documented as of this encounter Plan of Treatment Not on file documented as of this encounter Visit Diagnoses Not on filedocumented in this encounter Care Teams Funeral Location Manager Relationship Specialty Start Date End Date Kamla Cano MD PCP - General Internal Medicine 07/11/17 12/16/22 [facility], Pcp PCP - General Internal Medicine 12/17/22 documented as of this encounter
--- OUTSIDE RECORDS SUMMARY | 2024-07-01 11:55 | XMS_ITS | Encounter Summary ---
Author Organization [facility] Address [address] [place] [address] Care Team Providers Care Television Presenter Name Role Phone Kamla Cano MD Primary Care Provider Charles Haro, Pcp Primary Care Provider Helen peterson Encounter Details Date Type Department Care Team Description 02/03/2019 Orders Only Medical Records [address] [place] [address] Kamla Cano MD Social History Tobacco Use Types Packs/Day Years Used Date Smoking Tobacco: Never Smokeless Tobacco: Never Sex Assigned at Date Recorded Not on file Job Start Date Occupation Industry Not on file Not on file Not on file documented as of this encounter Plan of Treatment Not on file documented as of this encounter Procedures Procedure Name Priority Date/Time Associated Diagnosis Comments OUTSIDE NUCLEAR STRESS TEST Routine 01/28/2019 documented in this encounter Results * OUTSIDE NUCLEAR STRESS TEST (01/28/2019) Kamla Cano MD CARDIOLOGY documented in this encounter Visit Diagnoses Not on filedocumented in this encounter Care Teams Television Presenter Relationship Specialty Start Date End Date Kamla Cano MD PCP - General Internal Medicine 07/11/17 12/16/22 [facility], Pcp PCP - General Internal Medicine 12/17/22 documented as of this encounter
--- OUTSIDE RECORDS SUMMARY | 2024-07-01 11:55 | XMS_ITS | Encounter Summary ---
Author Organization [facility] Address [address] [place] [address] Care Team Providers Care Centrifugal Extractor Operator Name Role Phone Kamla Cano MD Primary Care Provider Charles laashley [facility], Pcp [facility] Reason for Visit * Reason Onset Date Comments Pre Op Visit 01/04/2019 Encounter Details Date Type Department Care Team Description 01/04/2019 Telephone Adult Medicine [address] [address] Kamla Cano MD Pre Op Visit Social History Tobacco Use Types Packs/Day Years Used Date Smoking Tobacco: Never Smokeless Tobacco: Never Sex Assigned at Date Recorded Not on file Job Start Date Occupation Industry Not on file Not on file Not on file documented as of this encounter Miscellaneous Notes * Telephone Encounter - Maryse Drummond - 01/04/2019 10:33 AM EDT Date of surgery:01/19/2019 What surgery is patient having (gall bladder, cataract, appendix, etc...)?:left wrist carppel tunnel Surgeon's name: Dr Jose Carlos Izaguirre Office phone number of surgeon: [phone] Laquita Epps Fax # for surgeons office: [phone] (Required) Where is surgery being performed [facility] Diagnosis/problem for surgery: Left wrist carppel tunnel Is an EKG required for the pre-op workup? YES PCP: Kamla Cano Did you verify that the insurance below is correct? YES Patients insurance: Payor: [facility] / Plan: MetaNotes O $0 [facility] [id number] / Product Type: HMO [id number] documented in this encounter Plan of Treatment Not on file documented as of this encounter Visit Diagnoses Not on filedocumented in this encounter Care Teams Centrifugal Extractor Operator Relationship Specialty Start Date End Date Kamla Cano MD PCP - General Internal Medicine 07/11/17 12/16/22 [facility], Pcp PCP - General Internal Medicine 12/17/22 documented as of this encounter
--- OUTSIDE RECORDS SUMMARY | 2024-07-01 11:55 | XMS_ITS | Encounter Summary ---
Author Organization [facility] Address [address] [place] [address] Care Team Providers Care Wind Farm Electrical Systems Designer Name Role Phone Kamla Cano MD Primary Care Provider Charles [facility], Pcp Primary Care Provider [facility] e Reason for Visit * Reason Onset Date Comments preop exam 09/07/2020 Encounter Details Date Type Department Care Team Description 09/07/2020 Telephone Adult Medicine [address] [address] Kamla Cano MD preop exam Social History Tobacco Use Types Packs/Day Years Used Date Smoking Tobacco: Never Smokeless Tobacco: Never Sex Assigned at Date Recorded Not on file Job Start Date Occupation Industry Not on file Not on file Not on file documented as of this encounter Miscellaneous Notes * Telephone Encounter - Mainor Reza - 09/07/2020 9:43 AM EDT Date of surgery:October 16 2020 What surgery is patient having (gall bladder, cataract, appendix, etc...)?: Right hand carpol tunnel Surgeon's name: Dr. Glenn Izaguirre Office phone number of surgeon: [phone] Fax # for surgeons office: [phone] (Required) Where is surgery being performed? [facility] Diagnosis/problem for surgery: Carpol Tunnel Is an EKG required for the pre-op workup? YES PCP: Kamla Cano Did you verify that the insurance below is correct? YES Patients insurance: Payor: [employer] / Plan: BozukoO $0 [facility] [id number] / Product Type: HMO [id number] documented in this encounter Plan of Treatment Not on file documented as of this encounter Visit Diagnoses Not on filedocumented in this encounter Care Teams Wind Farm Electrical Systems Designer Relationship Specialty Start Date End Date Kamla Cano MD PCP - General Internal Medicine 07/11/17 12/16/22 [facility], Pcp PCP - General Internal Medicine 12/17/22 documented as of this encounter
--- OUTSIDE RECORDS SUMMARY | 2024-07-01 11:55 | XMS_ITS | Encounter Summary ---
Author Organization [facility] Address [address] [place] [address] Care Team Providers Care Cake Decorator Name Role Phone Twan Romero MD Primary Care Provider Charles Haro, Pcp Primary Care Provider Unavailabl e Reason for Visit * Reason Onset Date Comments Faxed Order 05/28/2018 Encounter Details Date Type Department Care Team Description 05/28/2018 Telephone Adult Medicine [address] [address] Twan Romero MD Faxed Order Social History Tobacco Use Types Packs/Day Years Used Date Smoking Tobacco: Never Smokeless Tobacco: Never Sex Assigned at Date Recorded Not on file Job Start Date Occupation Industry Not on file Not on file Not on file documented as of this encounter Miscellaneous Notes * Telephone Encounter - Kristin May - 05/28/2018 3:49 PM EST CARE PLAN AND MEDICATION PROFILE FROM [facility] IN DR. TWAN ROMERO BOX FOR SIGNATURE AND TO FAX BACK TO [phone] documented in this encounter Plan of Treatment Not on file documented as of this encounter Visit Diagnoses Not on filedocumented in this encounter Care Teams Cake Decorator Relationship Specialty Start Date End Date Twan Romero MD PCP - General Internal Medicine 07/11/17 12/16/22 [facility], Pcp PCP - General Internal Medicine 12/17/22 documented as of this encounter
--- OUTSIDE RECORDS SUMMARY | 2024-07-01 11:55 | XMS_ITS | Encounter Summary ---
Author Organization [facility] Address [address] [place] [address] Care Team Providers Care Superintendent Of Schools Name Role Phone Kamla Cano MD Primary Care Provider Charles Haro, Pcp Primary Care Provider Helen peterson Encounter Details Date Type Department Care Team Description 03/26/2018 Cell Builder Report Medical Records [address] [place] [id number] Khadar Kuo MD Social History Tobacco Use Types Packs/Day [...] on filedocumented in this encounter Care Teams Superintendent Of Schools Relationship Specialty Start Date End Date Kamla Cano MD PCP - General Internal Medicine 07/11/17 12/16/22 [facility], Pcp PCP - General Internal Medicine 12/17/22 documented as of this encounter
--- OUTSIDE RECORDS SUMMARY | 2024-07-01 11:55 | XMS_ITS | Encounter Summary ---
Author Organization [employer] [facility] Address [address] [place] [address] Care Team Providers Care Nailhead Puncher Name Role Phone Kamla Cano MD Primary Care Provider Charles Haro, Pcp Primary Care Provider Unavailabl e Reason for Visit * Reason Onset Date Comments Faxed Order 09/02/2017 [facility] Encounter Details Date Type Department Care Team Description 09/02/2017 Telephone Adult [address] [address] Kamla Cano MD Faxed Order ([facility]) Social History Tobacco Use Types Packs/Day Years Used Date Smoking Tobacco: Never Smokeless Tobacco: Never Sex Assigned at Date Recorded Not on file Job Start Date Occupation Industry Not on file Not on file Not on file documented as of this encounter Miscellaneous Notes * Telephone Encounter - Jaki Bates - 09/02/2017 10:46 AM EDT Faxed order from [facility] requires pcp signature and placed in pcp mail bin. documented in this encounter Plan of Treatment Not on file documented as of this encounter Visit Diagnoses Not on filedocumented in this encounter Care Teams Nailhead Puncher Relationship Specialty Start Date End Date Kamla Cano MD PCP - General Internal Medicine 07/11/17 12/16/22 [facility], Pcp PCP - General Internal Medicine 12/17/22 documented as of this encounter
--- OUTSIDE RECORDS SUMMARY | 2024-07-01 11:55 | XMS_ITS ---
Author Name Joshua MCWILLIAMS, Mr. Ishmael Hairston Address [address] [place] [address] Phone [phone] [facility] Care Team Providers Care Setter Machine Name Role Phone Vu Lewis Unavailable [phone] Reason for Referral Not Available Allergies, adverse [...] (do not use for phone, instead use [id number]) [facility], ([place]) 04/30/2022 Essential (primary) hypertensionUnspecified osteoarthritis, unspecified siteDizziness and giddinessGastro-esophageal reflux disease without esophagitisOther constipationPolyneuropathy, unspecified New patient,40-59min; chronic exacerbation, 2 stable chronic or 1 acute illness add add modifier 95 for video (do not use for phone, instead use 60965-22) [facility], ([place]) 04/30/2022 New patient,40-59min; chronic exacerbation, 2 stable chronic or 1 acute illness add add modifier 95 for video (do not use for phone, instead use 93758-21) [facility], ([place]) 04/30/2022 New patient,40-59min; chronic exacerbation, 2 stable chronic or 1 acute illness add add modifier 95 for video (do not use for phone, instead use 42090-38) [facility], ([place]) 04/30/2022 New patient,40-59min; chronic exacerbation, 2 stable chronic or 1 acute illness add add modifier 95 for video (do not use for phone, instead use 55247-08) [facility], ([place]) 04/30/2022 New patient,40-59min; chronic exacerbation, 2 stable chronic or 1 acute illness add add modifier 95 for video (do not use for phone, instead use 15899-10) [facility], ([place]) 04/30/2022 New patient,40-59min; chronic exacerbation, 2 stable chronic or 1 acute illness add add modifier 95 for video (do not use for phone, instead use 02751-13) [facility], ([place]) 04/30/2022 Vital Signs Date of Collection Vitals [...] (do not use for phone, instead use 11299-95) [id number] 2022-04-30 No Data Available No Data Availa [...] Documented (1125F)Continue to see PCP. Follow-up with [facility] as needed for any acute or disease [...] completed by a udio and video using [employer] Tablet. Introductory visit with [facility] to establish care. Today, patient has chief [...] this visitand for caring and treatment at [facility]. Patient verbally consented to any as neededcare by [facility].
--- OUTSIDE RECORDS SUMMARY | 2024-07-01 11:55 | XMS_ITS | Encounter Summary ---
Author Organization [employer] [facility] Address [address] [place] [address] Care Team Providers Care Waterworks Pump Station Operator Name Role Phone Kamla Cano MD Primary Care Provider Charles Haro, Pcp Primary Care Provider Helen peterson Encounter Details Date Type Department Care Team Description 09/27/2020 Printed Circuit Board Pcb Designer Report Medical Records [address] [place] [address] Arabella Ayala, [facility] Social History Tobacco Use Types Packs/Day Years [...] have Coronavirus / COVID-19? No / Unsure 09/27/2020 2:08 PM EDT documented as of this encounter Plan of Treatment Not on file documented as of this encounter Visit Diagnoses Not on filedocumented in this encounter Care Teams Waterworks Pump Station Operator Relationship Specialty Start Date End Date Kamla Cano MD PCP - General Internal Medicine 07/11/17 12/16/22 [facility], Pcp PCP - General Internal Medicine 12/17/22 documented as of this encounter
--- OUTSIDE RECORDS SUMMARY | 2024-07-01 11:55 | XMS_ITS | Clinical Summary ---
Author Organization [facility] Address [address] [place] [address] Care Team Providers Care Commercial Carpenter Name Role Phone [facility], Pcp Primary Care Provider Unavailabl e Allergies Active Allergy Reactions Severity Noted Date Comments Penicillin G Rash/Dermatitis 08/01/2017 Medications Medication Sig Dispensed Refills Start Date End Date Status acetaminophen (TYLENOL) 325 MG tablet Take 2 Tabs by mouth 3 times daily as needed for Pain. 100 Tab 5 02/02/2018 Active ciclopirox (PENLAC) 8 % solutionIndication s:Onychomycosis apply medication to top of nail daily for 48 weeks. 1 Bottle 5 06/19/2020 Active polyethylene glycol (MiraLax) 17 GM/SCOOP powder Take 17 g by mouth daily. 510 g 2 10/03/2020 Active clotrimazole-betam ethasone (Lotrisone) cream Apply to rash under breasts and abdominal fold 2 times a day until healed. 30 g 0 10/03/2020 Active bismuth-metronidaz ole-tetracycline (PLYERA) 140-125-125 MG per capsule Take 3 Capsules by mouth 4 times daily (before meals and nightly) for 10 days. 120 capsule 0 10/04/2020 Active omeprazole (PRILOSEC) 20 MG capsule Take 1 capsule by mouth 2 times daily. For 10 days (with Pylera therapy), then as needed for heartburn 0 10/04/2020 Active Active Problems Problem Noted Date Osteopenia 03/30/2021 Tendinopathy of rotator cuff, right 01/26 Chronic right shoulder pain 02/13/2019 Bilateral carpal tunnel syndrome 019 Overview: EMG-NCS 10/2018 Dr. Saini MCI (mild cognitive impairment) 07/28/19 19 Hyperlipidemia 08/01/2017 Osteoporosis 08/01/2017 Arthritis 08/01/2017 Asthma 08/01/2017 Immunizations Name Administration Dates Next Due Influenza (> 6 Months) 02/26/2018 Family History Medical History Relation Name Comments Cancer, Other Brother Cancer of the Colon Father Dementia Mother Stroke Mother CA Breast Sister 1 dx'd age? Alzheimers Disease Sister 2 Relation Name Status Comments Brother Father Mother Sister 1 dx'd age? Alive Sister 2 Social History Tobacco Use Types Packs/Day Years Used Date Smoking Tobacco: Never Smokeless Tobacco: Never Tobacco Cessation:Counseling Given: Yes Sex Assigned at Date Recorded Not on file Job Start Date Occupation Industry Not on file Not on file Not on file Last Filed Vital Signs Vital Sign Reading Time Taken Comments Blood Pressure 138/70 10/03/2020 10:04 AM EDT Pulse 62 10/03/2020 10:04 AM EDT Temperature 36.2 ??C (97.2 ??F) 10/03/2020 10:04 AM E DT Respiratory Rate 14 10/03/2020 10:04 AM EDT Oxygen Saturation 99% 01/14/2020 4:05 PM EDT Inhaled Oxygen Concentration - - Weight 81.9 kg (180 lb 9.6 oz) 10/03/2020 10:04 AM EDT Height 162.6 cm (5' 4 ) 10/03/2020 10:04 AM EDT Body Mass Index 31 10/03/2020 10:04 AM EDT Plan of Treatment Health Maintenance Due Date Last Done Comments Covid-19 Vaccine (#1) 04/29/1946 SHINGLES VACCINE (1 of 2) 10/27/1997 CHOLESTEROL SCREENING 12/17/2022 12/17/2017, 018 BONE DENSITY SCREENING 03/29/2023 03/29/2021, 2017 INFLUENZA (#1) 2023 02/26/2018, 11/2017 (Refused) BMI CHECK/ADVISE 04/28/2024 10/03/2020, , 01/17/2020, Additional history exists MAMMOGRAM 11/10/2024 11/11/2023, 04/29, 03/29/2021, Additional history exists DTAP/TDAP/TD (2 - Td or Tdap) 07/27/2028 07/27/2018 (Refused) HEPATITIS C SCREENING Completed 02/02/2018 PNEUMOCOCCAL VACCINE Addressed 07/27/2018 (Refused) Overridden with the intention of not completing the topic Care Teams Commercial Carpenter Relationship Specialty Start Date End Date Community, Pcp PCP - General Internal Medicine 12/17/22
== END 2024-07-01 10:04 | disposition home or self-care (01) ==
LOC: HO.HOSX 10:03
PROVIDERS: PCP Family Medicine; Visit Provider Physical Medicine & Rehabilitation
DX: M54.9 Dorsalgia, unspecified (principal); M48.062 Spinal stenosis, lumbar region with neurogenic claudication; M54.42 Lumbago with sciatica, left side; M54.41 Lumbago with sciatica, right side; G89.29 Other chronic pain
CPT/HCPCS: 72100; 99202

== ENCOUNTER 2024-07-01 10:03 | Outpatient (AMB) | payer OTHER, SELFPAY ==
[2024-07-01 10:42] VITALS: BMI 32.6
--- NOTE | 2024-07-01 10:42 | MHC.OFFVIS ---
Vital Signs 07/01/24 10:42 Height 5 ft 6 in Weight 202 lb BMI 32.6 Intake Visit Reasons: COMMUNITY COORDINATOR-low back B/L pain Intake Note: Erin 78 yr old grenadian speaking female presents today for a new patient evaluation for her lower back pain. States she is having pain in her left knee with radiating pain to her back. She has pain when walking and laying, she is not stable on her feet. Denies falling recently. States she has numbness at her lateral aspect of thigh. Seen in [place] with [facility] and was give a prednisone taper about 1 week ago. She also had an injection in her right knee. Patient referred by [facility]. Accompanied by: Fernando glass Allergies penicillin V Allergy (Mild, Verified 07/01/24 10:57) Itching HPI Comments Details: Here with daughter who helped with translation. They confirm that pain that starts with both knees, and radiates up to back. Denies back pain that is not connected to knee. And maintains that pain starts with the knees. But she says there is numbness on left lateral thigh, especially when walking. Daughter notes possibly weaker on left side when she walks. Uses cane. Saw [facility] ([place]) who said they think this is related to the spine. She did have injection of right knee there last week, with partial relief only. When she was younger in [place], she had history of disc issues and back pain. Today she says she doesn't remember. She does have memory issues per daughter. PT was done in 2023 and 2021, discharge summary reviewed, and they continued PT taught exercises at home. [facility] Medical History HTN (hypertension) Surgical History History of rotator cuff surgery History of carpal tunnel repair Family History Father Cancer Mother Dementia Sister Breast cancer in female Daughter Thyroid cancer Social History (Updated 07/01/24 @ 10:58 by CORINE Valdez) Household Members: None Housing: Apartment Alcohol intake: never Patient Tobacco Use Status: Never used Tobacco Current occupational status: disabled Current occupation: rt hand Review of Systems Const All systems reviewed & are unremarkable except as noted in HPI and below Physical Exam Vital Signs: BMI result Body Mass Index 32.6 Constitutional: Patient appears to be in no acute distress, well nourished and well developed. Patient was appropriately conversant and oriented. Good historian. MSK: No specific abnormalities found on inspection of the spine and all extremities. No pain with palpation over the lumbar area. Nontender SI or GT. Lumbar ROM was full. Give-way weakness in bilateral hip flexion. 5/5 bilateral knee extension. No footdrop. Neurological: Peters?s negative bilaterally. Babinski was down going bilaterally. Clonus was negative. Gait is antalgic without loss of balance. Results Reviewed Results Reviewed: I reviewed records from the following: Rheumatology - patient has history of fibromyalgia Cardiology Assessment & Plan Assessment & Plan (1) Lumbar stenosis with neurogenic claudication: Code(s): M48.062 - Spinal stenosis, lumbar region with neurogenic claudication Category: Medical (2) Lower back pain: Code(s): M54.50 - Low back pain, unspecified Category: Medical Qualifiers: Chronicity: chronic Back pain laterality: bilateral Sciatica presence: with sciatica Sciatica laterality: bilateral sciatica Qualified Code(s): M54.42 - Lumbago with sciatica, left side; M54.41 - Lumbago with sciatica, right side; G89.29 - Other chronic pain Plan Lumbar x-rays done in the office today showed decreased disc space L5-S1. Images reviewed with patient and daughter. Patient had undergone adequate conservative management including PT and home exercise without improvement of condition. It would be reasonable to obtain further imaging such as MRI. An MRI would help rule out any serious condition, guide treatment and assess prognosis for recovery. Specifically ruling out L5-S1 disc herniation or lumbar stenosis. Assessment and plan discussed with patient, and patient was agreeable. All questions were answered thoroughly. Follow up after MRI. Latosha Gamboa MD, YUNIOR Board Certified, [place] [employer] and [employer] (ABPMR) Board Certified, [place] [employer] Electro[employer] (ABEM) Orders: Orders XR lumbar spine 2-3V Today M54.9 - Dorsalgia, unspecified MR lumbar spine wo con Today M48.062 - Spinal stenosis, lumbar region with neurogenic claudication, M54.50 - Low back pain, unspecified Coding Level of Care Code New Pt Level 4 (87387) Diagnoses Lumbar stenosis with neurogenic claudication M48.062 Chronic bilateral low back pain with bilateral sciatica M54.42; M54.41; G89.29 Chronicity: chronic Back pain laterality: bilateral Sciatica presence: with sciatica Sciatica laterality: bilateral sciatica
--- OUTSIDE RECORDS SUMMARY | 2024-07-01 11:43 | XMS_ITS | Encounter Summary ---
Author Organization [facility] Address [address] [facility] [address] [place] [address] Care Team Providers Care [employer] Professional Name Role Phone Sunita Lezama MD Primary Care Provider [phone] Reason for Visit * Reason Onset Date Comments Durable Medical Equipment 05/22/2023 Encounter Details Date Type Department Care Team ([facility] Contact Info) Description 05/22/2023 Telephone [facility] MEDICINE [address] [place] [address] Sunita Lezama MD [address] [place] [address] Durable Medical Equipment Social History Tobacco Use Types Packs/Day Years Used Date Smoking Tobacco: Never Passive Smoke Exposure: Never Smokeless Tobacco: Never Alcohol Use Standard Drinks/Week Comments Never 0 (1 standard drink = 0.6 oz pur e alcohol) Depression Answer Date Recorded Patient Health Questionnaire-9 Score 2 04/19/2022 Housing Stability Answer Date Recorded What is your housing situation today? I have marko duckworth 02/19/[address] you li ve. Do you have problems with any of the following? None of the above 02/19/2023 Food Insecurity Answer Date Recorded Within the past 12 months, y ou worried that your food would run out before you got money to buy more: Never True 02/19/2023 Within the past 12 months,th e food you bought just didn't last and you didn't have enough money to get more: Never True Transportation Answer Date Recorded In the past 12 months, has l ack of transportation kept you from medical appts, meetings, work or from getting things needed for daily living? No 02/19/2023 Utilities Answer Date Recorded In the past 12 months, has t he electric, gas, oil or water company threatened to shut off services in your home? No 02/19/2023 Depression Answer Date Recorded Patient Health Questionnaire-2 Score 0 04/19/2022 Comments Unknown Sex and Gender Information Value Date Recorded Sex Assigned at Female 02/25/2022 10:32 AM EDT Legal Sex Female 10:32 AM EDT Gender Identity Female 02/25/2022 10:32 AM EDT Sexual Orientation Straight 06/20/2022 11 :21 AM EST documented as of this encounter Miscellaneous Notes * Telephone Encounter - Yoon Patton RN - 05/23/2023 4:41 PM EST Noted pt is scheduled on 06/06/23 * Telephone Encounter - Sunita Lezama MD - 05/23/2023 4:15 PM EST Needs face to face documentation to assess the need, Please scheduled appt. * Telephone Encounter - Dena Miranda LPN - 05/23/2023 1:17 PM EST Please read message below and advise . * Telephone Encounter - Court Rosario - 05/22/2023 11:59 AM EST Tc from grandchild requesting DME on recliner chair. Please fax to [facility] No more details provided documented in this encounter Plan of Treatment Not on file documented as of this encounter Visit Diagnoses Not on filedocumented in this encounter Additional Health Concerns Assessment Noted Time PHQ-9 Depression Total Score: 2 04/19/20 22 10:21 AM EST documented as of this encounter Care Teams [employer] Professional Relationship Specialty Start Date End Date Sunita Lezama MD [address] [place] [address] PCP - General Family Medicine 04/02/21 documented as of this encounter
--- OUTSIDE RECORDS SUMMARY | 2024-07-01 11:43 | XMS_ITS | Encounter Summary ---
Author Organization [facility] Address [address] [facility] [address] [place] [address] Care Team Providers Care Automatic Pinsetter Adjuster Name Role Phone Sunita Lezama MD Primary Care Provider [phone] Encounter Details Date Type Department Care Team ([facility] st Contact Info) Description 06/11/2023 Abstract [facility] [address] [place] [address] Sunita Lezama MD [address] [place], [place] [id number] Social History Tobacco Use Types Packs/Day Years Used Date Smoking Tobacco: Never Passive Smoke Exposure: Never Smokeless Tobacco: Never Alcohol Use Standard Drinks/Week Comments Never 0 (1 standard drink = 0.6 oz pur e alcohol) Depression Answer Date Recorded Patient Health Questionnaire-9 Score 2 04/19/2022 Housing Stability Answer Date Recorded What is your housing situation today? I have markoreginaldo duckworth 02/19/[address] you [...] AM EST documented as of this encounter Plan of Treatment Not on file documented as of this encounter Visit Diagnoses Not on filedocumented in this encounter Additional Health Concerns Assessment Noted Time PHQ-9 Depression Total Score: 2 04/19/20 22 10:21 AM EST documented as of this encounter Care Teams Automatic Pinsetter Adjuster Relationship Specialty Start Date End Date Sunita Lezama MD [address] [place] [address] PCP - General Family Medicine 04/02/21 documented as of this encounter
--- OUTSIDE RECORDS SUMMARY | 2024-07-01 11:43 | XMS_ITS | Encounter Summary ---
Author Organization [facility] Address [address] [facility] [address] [place] [address] Care Team Providers Care Editor In Chief Name Role Phone Sunita Lezama MD Primary Care Provider [phone] Reason for Visit * Reason Onset Date Comments Appointment Request 05/22/2023 Encounter Details Date Type Department Care Team ([facility] st Contact Info) Description 05/22/2023 Telephone [facility] MEDICINE [address] [place] [address] Sunita Lezama MD [address] [place] [address] Appointment Request Social History Tobacco Use Types Packs/Day Years [...] encounter Miscellaneous Notes * Telephone Encounter - Court Rosario - 05/22/2023 12:02 PM EST Tc from grandchild requesting appt with PCP. documented in this encounter Plan of Treatment Not on file documented as of this encounter Visit Diagnoses Not on filedocumented in this encounter Additional Health Concerns Assessment Noted Time PHQ-9 Depression Total Score: 2 04/19/20 22 10:21 AM EST documented as of this encounter Care Teams Editor In Chief Relationship Specialty Start Date End Date Sunita Lezama MD [address] [place] [id number] PCP - General Family Medicine 04/02/21 documented as of this encounter
--- OUTSIDE RECORDS SUMMARY | 2024-07-01 11:43 | XMS_ITS | Clinical Summary ---
Author Organization [facility] Address [address] [place] [address] Care Team Providers Care Frame Tender Name Role Phone Unavailable Primary Care Provider Unavailabl e Allergies Active Allergy Reactions Criticality Noted Date Comments Penicillin G Rash Low 08/01/2017 Penicillins Itching Low 05/06/2017 Medications Medication Sig Dispensed Refills Start Date End Date Status raNITIdine (ZANTAC) 150 MG tablet Take 150 mg by mouth continuous prn. 1 11/10/2018 Active ALPRAZolam (XANAX) 1 MG tablet Take 1 tablet (1 mg total) by mouth as needed (prior to MRI). 2 tablet 0 01/25/2019 Active promethazine (PHENERGAN) 12.5 MG tablet Take 1 tablet (12.5 mg total) by mouth every 8 (eight) hours as needed. 4 tablet 0 04/09/2019 Active meloxicam (MOBIC) 15 MG tablet Take 1 tablet daily for 7 days following surgery 7 tablet 0 04/09/2019 Active clindamycin (CLEOCIN) 300 MG capsule Take 1 capsule (300 mg total) by mouth 3 (three) times a day. 3 capsule 0 04/09/2019 Active gabapentin (NEURONTIN) 300 MG capsule Take 300mg for 3 days at bedtime. Please start 1 night prior to surgery 3 capsule 0 04/09/2019 Active ciclopirox (PENLAC) 8 % solution APPLY MEDICATION TO TOP OF NAIL DAILY FOR 48 WEEKS. 0 07/21/2020 Active ketotifen (ZADITOR) 0.025 % ophthalmic solution Place 1 drop into both eyes 2 (two) times a day. 0 07/19/2020 Active omeprazole (PriLOSEC) 20 MG capsule Take 20 mg by mouth. 0 06/19/2020 Active polyethylene glycol (GLYCOLAX) 17 GM/SCOOP powder Take 17 g by mouth. 0 06/19/2020 Active GaviLAX 17 GM/SCOOP powder MIX 17 GRAMS IN LIQUID AND DRINK ONCE A DAY 0 07/22/2020 Active Acetaminophen-Codei ne (TYLENOL/CODEINE #3) 300-30 MG per tablet Take 1-2 tablets by mouth every 4 (four) hours as needed for pain. 19 tablet 0 10/16/2020 Active Acetaminophen 325 MG CAPS Take 1-2 capsules by mouth every 4 (four) hours as needed. 0 05/06/2017 Active atorvastatin (LIPITOR) tablet 20 mg Take 1 tablet (20 mg total) by mouth. 0 10/17/2021 Active Calcium Carb-Cholecalcifero l 500-10 MG-MCG CHEW Chew 1 tablet by mouth. 0 02/11/2022 Active carbamide peroxide (Debrox) 6.5 % otic solution Place 5 drops in ear(s) every 12 (twelve) hours. 0 07/11/2021 Active carvedilol (COREG) 3.125 MG tablet Take 1 tablet (3.125 mg total) by mouth every 12 (twelve) hours. 0 01/21/2022 Active clotrimazole (LOTRIMIN) 1 % cream Apply topically every other day. 0 05/24/2021 Active COVID-19 At Home Antigen Test (QuickVue At-Home Covid-19 Test) KIT as directed 0 05/24/2021 Activ e diclofenac (VOLTAREN) 75 MG EC tablet Take 1 tablet (75 mg total) by mouth every 12 (twelve) hours. 0 10/26/2021 Active omeprazole (PriLOSEC) 20 MG capsule Take 1 capsule (20 mg total) by mouth. 0 10/04/2020 Active meclizine (ANTIVERT) 12.5 MG tablet Take 1 tablet (12.5 mg total) by mouth every 8 (eight) hours as needed. 0 04/19/2022 Active Active Problems Problem Noted Date Diagnosed Date Bilateral carpal tunnel syndrome 12/22/2019 Nontraumatic complete tear of right rotator cuff 02/15/2019 Right shoulder pain 12/23/2018 Family History Medical History Relation Name Comments Cancer Brother Hyperlipidemia Brother Cancer Father Hyperlipidemia Father Cancer Mother Hyperlipidemia Mother Cancer Sister Hyperlipidemia Sister Relation Name Status Comments Brother Father Mother Sister Social History Tobacco Use Types Packs/Day Years Used Date Smoking Tobacco: Never Smokeless Tobacco: Never Tobacco Cessation:Counseling Given: Not Answered Alcohol Use Standard Drinks/Week Comments No 0 (1 standard drink = 0.6 oz pur e alcohol) Sex and Gender Information Value Date Recorded Sex Assigned at Female 04/07/2019 1:59 PM EST Gender Identity Female 04/12/2019 10:28 AM EST Sexual Orientation Choose not to disclose 2018 10:28 AM EST Job Start Date Occupation Industry Not on file Not on file Not on file Last Filed Vital Signs Vital Sign Reading Time Taken Comments Blood Pressure 130/68 04/12/2019 3:15 PM EST Pulse 59 04/12/2019 3:15 PM EST Temperature 36 ??C (96.8 ??F) 04/12/2019 1:52 PM EST Respiratory Rate 15 04/12/2019 3:15 PM EST Oxygen Saturation 96% 04/12/2019 3:15 PM EST Inhaled Oxygen Concentration - - Weight 83.9 kg (185 lb) 04/30/2022 11:09 AM EST Height 162.6 cm (5' 4 ) 04/30/2022 11:09 AM EST Body Mass Index 31.76 04/30/2022 11:09 AM EST Plan of Treatment Health Maintenance Due Date Last Done Comments Hepatitis C Screening 1945 COVID-19 Vaccine (#1) 04/29/1946 Depression Screening 1959 BMI Counseling 10/27/1965 Preventative Health Evaluation 10/27/1965 DTap / Tdap / Td (1 - Tdap) 10/27/1966 Fall Risk Assessment 10/27/2012 Osteoporosis Screening (DEXA Scan) 10/27/2012 Pneumococcal Vaccine (2 of 2 - PCV) 07/27/2020 07/28/2019 RSV Adult > 60+ Yrs or (1 - 1-dose 75+ series) 10/27/2022 Influenza Vaccine (#1) 2023 2, 12/27/2020, 02/26/2018 Shingrix-Zoster Vaccine Completed 08/16/19 22, 06/20/2021 Hepatitis B Vaccines Aged Out No long er eligible based on patient's age to complete this topic RSV Ped < 20 months Aged Out No longe r eligible based on patient's age to complete this topic Medical Devices Implanted Type Area Development Eng Device Identifier Shelf Expiration Date Model / Serial / Lot [employer] Suture Q-Fix Od2.8 Mm - [id number] - [id number] Implanted:Qty: 2 on 04/12/2019 by Wagner Evans MD at [facility] [place] [facility] Right: Shoulder [employer] 12/23/2021 25-2800 / / [id number] [employer] S[employer] Q-Fix Od2.8 Mm - [id number] - [id number] Implanted:Qty: 1 on 04/12/2019 by Wagner Evans MD at [facility] [place] [facility] Right: Shoulder [employer] 10/05/2021 25-2800 / / [id number] [employer] S[employer] Q-Fix Od2.8 Mm - [id number] - [id number] Implanted:Qty: 1 on 04/12/2019 by Wagner Evans MD at [facility] [place] [place] [facility] Right: Shoulder [employer] 11/19/2021 25-2800 / / [id number]
--- OUTSIDE RECORDS SUMMARY | 2024-07-01 11:44 | XMS_ITS | Clinical Summary ---
Author Organization [employer] Address [address] [facility] [address] [place] [address] Care Team Providers Care Lisw Name Role Phone Sunita Lezama MD Primary Care Provider [phone] Allergies Active Allergy Reactions Criticality Noted Date Comments Carvone 11/21/2022 Penicillin G Rash Low 05/09/2022 Medications polyethylene glycol, PEG, 3350 (MiraLax) 17 GM/SCOOP powder take (17G) by oral route every day mixed with 8 oz. water, juice, soda, coffee or tea 022 Active clotrimazole (Lotrimin) 1 % cream Apply topically in the morning and at bedtime. To the affected and surrounding areas of skin 022 Active acetaminophen (Tylenol) 325 MG capsule Take 1-2 capsules by mouth every 4 (four) hours if needed for pain. 018 Active dicyclomine (Bentyl) 10 MG capsule TOME 1 C PSULA POR V A ORAL WAYNE VECES AL D A CUANDO SEA NECESARIO CRAMPING 023 Active ondansetron ODT (Zofran-ODT) 4 MG disintegrating tablet TOME GERALDINE TABLETA POR V A ORAL CADA OCHO HORAS CUANDO SEA NECESARIO PARA LAS N USEAS Y V MITOS 023 Active zinc 50 MG tablet TOME GERALDINE TABLETA TODOS LOS D EN LA MA OSCAR 023 Active Blood Pressure kitIndications:Pr imary hypertension 1 Units in the morning. 1 kit 023 Active prednisoLONE acetate (Pred-Forte) 1 % ophthalmic suspension INSTILL 1 DROP IN LEFT EYE FOUR TIMES A DAY TO BEGIN 6 HOURS AFTER SURGERY AND CONTINUE FOR 6 HOURS 023 Active ofloxacin (Ocuflox) 0.3 % ophthalmic solution INSTILL 1 DROP IN LEFT EYE FOUR TIMES A DAY TO BEGIN 6 HOURS AFTER SURGERY AND CONTINUE FOR 7 DAYS 023 Active ketorolac (Acular) 0.5 % ophthalmic solution INSTILL 1 DROP IN LEFT EYE FOUR TIMES A DAY TO BEGIN 6 HOURS AFTER SURGERY AND CONTINUE FOR 6 HOURS 023 Active meclizine (Antivert) 12.5 MG tabletIndications :Dizziness TAKE 1 TABLET (12.5 MG) BY MOUTH EVERY 8 (EIGHT) HOURS IF NEEDED FOR DIZZINESS. 90 tablet 1 023 Active Diclofenac Sodium 1 % gel APPLY 5 G TOPICALLY 4 TIMES DAILY. 200 g 024 Active Calcium Carb-Cholecalcife rol 500-10 MG-MCG chewable tablet TOME GERALDINE TABLETA TODOS LOS MELCHOR 90 tablet 2 024 Active diclofenac (Voltaren) 75 MG EC tabletIndications :Osteoarthritis of right knee, unspecified osteoarthritis type TAKE 1 TABLET BY MOUTH EVERY 12 HOURS 60 tablet 2 025 Active amLODIPine (Norvasc) 5 MG tabletIndications :Hypertension, unspecified type TOME 1 TABLETA POR VIA ORAL TODOS LOS MELCHOR EN LA 90 tablet 1 025 Active omeprazole (PriLOSEC) [address] capsule TOME GERALDINE CAPSULA DOS VECES AL REGAN 180 capsule 1 025 Active atorvastatin (Lipitor) 40 MG tablet TOME 1 TABLETA POR VIA ORAL TODOS LOS MELCHOR EN LA 90 tablet 1 025 Active carvedilol (Coreg) 3.125 MG tabletIndications :Coronary artery disease, unspecified vessel or lesion type, unspecified whether angina present, unspecified whether [place] or transplanted heart TOME GERALDINE TABLETA 2 VECES AL REGAN CON LAS COMIDAS 180 tablet 1 025 Active omeprazole (PriLOSEC) [address] capsule TOME GERALDINE CAPSULA DOS VECES AL REGAN 180 capsule 1 024 2024 Discontinued amLODIPine (Norvasc) 5 MG tabletIndications :Hypertension, unspecified type TOME GERALDINE TABLETA TODOS LOS MELCHOR EN LA MANANA 90 tablet 1 024 2024 Discontinued atorvastatin (Lipitor) 40 MG tablet TOME GERALDINE TABLETA TODOS LOS MELCHOR EN LA MANANA 90 tablet 1 024 2024 Discontinued carvedilol (Coreg) 3.125 MG tabletIndications :Coronary artery disease, unspecified vessel or lesion type, unspecified whether angina present, unspecified whether [place] or transplanted heart TOME GERALDINE TABLETA 2 VECES AL REGAN CON LAS COMIDAS 180 tablet 1 024 2024 Discontinued Active Problems Problem Noted Date Diagnosed Date Left shoulder pain 01/12/2024 Assessment & Plan (01/12/2024 9:49 AM EDT): Discussed risks and side eggects of injection, pt agreed to have administered today in left shoulder. Advised to place ice at site of injection 6 hrs after administration. Discussed feeling relief within 48 hrs. Onychomadesis of toenail 12/25/2023 Left wrist pain 12/25/2023 Assessment & Plan (12/28/2023 4:26 AM EDT): Referral to Orthopaedic Surgery XR Wrist 1-2 Views Left Acute pain of left shoulder 12/25/2023 Chronic pain of right knee 12/25/2023 Iliotibial band syndrome, right 12/25/2022 Assessment & Plan (12/25/2022 9:36 AM EDT): Printed out and gave patient home exercises to help improve symtpoms. Cardiac arrhythmia 10/30/2022 Foot laceration 10/30/2022 PVCs (premature ventricular contractions) 2022 Osteoarthritis of patellofemoral joint Assessment & Plan (06/06/2023 10:50 AM EST): Patient has severe arthritis of the knee. Patient is completely incapable of standing up from a regular arm chair or any chair in her home. Once standing, the patient is able to ambulate with assistance with cane & walker and has tried all the appropriate therapeutic modalities to enable the patient to transfer from a chair to a standing position been tried and failed. Needs PT/OT referral for assessment of medical necessity, per granddaughter her [employer] worker sent someone home, I don't have documentation at this moment of that evaluation Impacted cerumen of right ear 07/25/2022 Assessment & Plan (07/25/2022 1:22 PM EDT): Seen by RN for lavage, didn't tolerate 2/2 dizziness, ENT referral placed H. pylori infection 07/25/2022 Assessment & Plan (10/10/2022 10:51 AM EDT): Advised to hold pantoprazole for x2 weeks to recheck for H pylori. Assessment & Plan (07/25/2022 1:21 PM EDT): Reports side effects with therapy for H. Pylori will switch medications and f/u 6 weeks for KIMBERLY. Grand-daughter to make us aware if she is having side effects Hypertension 06/11/2022 Assessment & Plan (12/28/2023 4:26 AM EDT): Controlled continue current regimen. Assessment & Plan (02/19/2023 3:24 PM EDT): Controlled continue current regimen Assessment & Plan (12/25/2022 9:36 AM EDT): Patient presented visit for HTN follow up, with an elevated BP, advised patient to monitor BP at home. Will hold off on any changes. Assessment & Plan (07/25/2022 1:20 PM EDT): Controlled. Denies side effects with amlodipine, continue current dose. F/u 3 months for HTN Assessment & Plan (06/11/2022 3:43 PM EST): Will start patient on amlodipine 5 mg. - If SBP < 140/DBP <90 mmHg in more than 75% of home self-monitoring, continue current medication regimen and make f/u with PCP in 3 month - If SBP >140-165/DBP >90-115 mmHg , increase amlodipine to 10 mg and f/u with PCP in 1 month - If SBP > 165/ DBP> 115 mmHg, consult with covering provider - If SBP <90/DBP <50 mmHg, consult with covering provider. Chronic left shoulder pain 06/07/2022 Assessment & Plan (10/10/2022 10:52 AM EDT): Patient with continued pain in L shoulder. Will send to PT. Assessment & Plan (06/11/2022 3:43 PM EST): ddx rotator cuff, will send to PT COVID-19 04/19/2022 Assessment & Plan (04/19/2022 5:22 PM EST): Patient continues to feel fatigue and with SOB sp COVID, will add zinc gluconate to help with immune system, cont vit D and calcium, nl lung exam Vertigo 04/19/2022 Assessment & Plan (12/28/2023 4:22 AM EDT): Pt has improved since last visit. Assessment & Plan (07/25/2022 1:19 PM EDT): Patient continues with dizziness, reports medication (meclizine) helps but continues to be symptomatic, at his moment will refer to ENT & neurology to help with workup. Assessment & Plan (04/19/2022 5:22 PM EST): On and off, refilled meclizine and will followup Nontraumatic complete tear of right rotator cuff 02/15/2019 Bilateral carpal tunnel syndrome 11/08/2018 Overview (04/19/2022): EMG-NCS 10/2018 Dr. Saini MCI (mild cognitive impairment) 07/27/2018 Osteoporosis 08/01/2017 Asthma 08/01/2017 Degeneration of lumbar intervertebral disc 05/06 Hyperlipidemia 05/06/2017 Osteoarthritis 05/06/2017 Assessment & Plan (05/09/2022 4:24 PM EST): Sp steroid injection trial, tolerated well. Recommended icing, return precautions discussed with patient. Osteopenia 05/06/2017 Resolved Problems Problem Noted Date Diagnosed Date Resolved Date Elevated blood pressure reading 04/19/2022 07/25/2022 Assessment & Plan (04/19/2022 5:22 PM EST): Elevated reading will need to continue monitoring and followup Encounters Date Type Department Care Team Description 06/07/2024 Refill [facility] [address] [place] [address] Sunita Lezama MD Coronary artery disease, unspecified vessel or lesion type, unspecified whether angina present, unspecified whether [place] or transplanted heart 06/06/2024 Refill [facility] [address] [place] [address] Sunita Lezama MD Hypertension, unspecified type 05/14/2024 Refill [facility] [address] [place] [address] Sunita Lezama MD Osteoarthritis of right knee, unspecified osteoarthritis type from Last 3 Months Immunizations Name Administration Dates Next Due Influenza High-dose Quadriva lent Preservative Free 01/24/2023,01/16/2022,02/22/2020 Influenza injectable quadriv alent preservative free 12/27/2020 Influenza, High Dose Seasona l, Preservative Free 01/12/2024 Influenza, IIV3, injectable 02/26/2018 Moderna Covid-19 Vaccine 12+ 02/27/2021,07/23/19 21,06/24/2020 Pneumococcal Conjugate PCV 20 12/25/2022 Pneumococcal Polysaccharide PPSV23 07/28/2019 Tdap 10/24/2022 Zoster, Recombinant 08/15/2021,06/20/2021 Social History Tobacco Use Types Packs/Day Years Used Date Smoking Tobacco: Never Passive Smoke Exposure: Never Smokeless Tobacco: Never Tobacco Cessation:Counseling Given: Not Answered Alcohol Use Standard Drinks/Week Comments Never 0 (1 standard drink = 0.6 oz pur e alcohol) Depression Answer Date Recorded Patient Health Questionnaire-9 Score 0 01/12/2024 Patient Health Questionnaire-9 Score 0 01/12/2024 Last PHQ-9: Questionnaire Data Not on file 0 01/12/2024 Housing Stability Answer Date Recorded What is your housing situation today? I have marko duckworth 01/12/[address] you li ve. Do you have problems with any of the following? I am not sure;None of the above 01/12/2024 Food Insecurity Answer Date Recorded Within the [...] Date Recorded Patient Health Questionnaire-2 Score 0 01/12/2024 Internet Access Answer Date Recorded Internet Access Q1 Yes 01/12/2024 Internet Access Q2 Not on file 01/12/2024 Comments Unknown Sex and Gender Information Value Date Recorded Sex Assigned at Female 02/25/2022 10:32 AM EDT Legal Sex Female 10:32 AM EDT Gender Identity Female 02/25/2022 10:32 AM EDT Sexual Orientation Straight 06/20/2022 11 :21 AM EST Last Filed Vital Signs Vital Sign Reading Time Taken Comments Blood Pressure 132/72 01/12/2024 9:00 AM EDT Pulse 78 01/12/2024 9:00 AM EDT Temperature 36.4 ??C (97.6 ??F) 01/12/2024 9:00 AM ED T Respiratory Rate 18 01/12/2024 9:00 AM EDT Oxygen Saturation 97% 01/12/2024 9:00 AM EDT Inhaled Oxygen Concentration - - Weight 90.8 kg (200 lb 3.2 oz) 01/12/2024 9:00 A M EDT Height 162.6 cm (5' 4 ) 01/12/2024 9:00 AM EDT Body Mass Index 34.36 01/12/2024 9:00 AM EDT Plan of Treatment Health Maintenance Due Date Last Done Comments Alcohol/Substance Use Screening 1957 Hepatitis C Screening 10/27/1965 RSV Patients and Patients Aged 60 years or older (1 - 1-dose 75+ series) 10/27/2022 COVID-19 Vaccine ( - season) 2023 02/27/2021, 07/22/2020, 06/24/2020 Depression Screening 01/11/2025 01/12/2024, 01/12/20 24 SDOH Screening 01/11/2025 01/12/2024 Tobacco Screening 01/11/2025 01/12/2024 Lipid Panel 06/19/2028 06/19/2023, 04/03/2021 DTaP/Tdap/Td Vaccines (2 - Td or Tdap) 10/24/2032 10/24/2022 Zoster Vaccines Completed 08/15/2021, 06/20/2021 Pneumococcal Vaccine: 50+ Years Completed 12/25/2022, 07/28/2019 Influenza Vaccine Completed 01/12/2024, , 01/16/2022, Additional history exists HIB Vaccines Aged Out No longer eligi ble based on patient's age to complete this topic HPV Vaccines Aged Out No longer eligi ble based on patient's age to complete this topic Hepatitis A Vaccines Aged Out No long er eligible based on patient's age to complete this topic Hepatitis B Vaccines Aged Out No long er eligible based on patient's age to complete this topic IPV Vaccines Aged Out No longer eligi ble based on patient's age to complete this topic Meningococcal Vaccine Aged Out No ricky himanshu eligible based on patient's age to complete this topic RSV under 20 months Aged Out No longe r eligible based on patient's age to complete this topic Rotavirus Vaccines Aged Out No longer eligible based on patient's age to complete this topic Procedures Procedure Name Priority Date/Time Associated Diagnosis Comments LIPID PANEL, STANDARD Routine 06/19/2023 9:25 AM EST from Last 3 Months or Most Recently Relevant to Health Maintenance Results * (ABNORMAL) Lipid Panel, Standard (06/19/2023 9:25 AM EST) Triglycerides 115 <150 mg/dL [facility] Comment:Desirable Triglyceri de: less than 150 mg/dLBorderline High Triglyceride 150-199 mg/dLHigh Triglyceride: 200-499 mg/dLVery High Triglyceride: greater than or equal to 5OO mg/dL Cholesterol 268(H) <200 mg/dL [facility] Comment:Desirable Cholestero l: less than 200 mg/dLBorderline High Cholesterol: 200-239 mg/dLHigh Cholesterol: greater than 239 mg/dL LDL Cholesterol Calculated 167(H) <100 mg/dL [facility] Comment:Desirable LDL: less than 100 mg/dLNear Optimal/Above Optimal LDL: 110- 129 mg/dLBorderline High LDL: 130-159 mg/dLHigh LDL: 160-189 mg/dLVery High LDL: greater than or equal to 190 mg/dL HDL Cholesterol 78 >40 mg/dL [facility] Comment:Desirable HDL: grea ter than 40 mg/dL Note: This HDL assay may give artificially low results in patients with liver disease. 06/19/2023 9:25 AM EST 06/19/2023 11:22 AM EST us Generic External Data Provider LAB BLOOD ORDERAB LES Final Result Performing Organization Address City/State/[facility] Co de Phone Number [facility] [address] [place] [phone] from Last 3 Months or Most Recently Relevant to Health Maintenance Insurance [facility] Care Teams Lisw Relationship Specialty Start Date End Date Sunita Lezama MD [address] [place] [address] PCP - General Family Medicine 04/02/21
--- OUTSIDE RECORDS SUMMARY | 2024-07-01 11:44 | XMS_ITS | Encounter Summary ---
Author Organization [employer] Address [address] [facility] [address] [place] [address] Care Team Providers Care Pharmacy Services Director Name Role Phone Sunita Lezama MD Primary Care Provider [phone] Reason for Visit * Reason Comments Med Refill Encounter Details Date Type Department Care Team ([facility] Contact Info) Description 06/07/2024 Refill [facility] [address] [place], [place] [phone] Sunita Lezama MD [address] [place] [address] Coronary artery disease, unspecified vessel or lesion type, unspecified whether angina present, unspecified whether [place] or transplanted heart Social History Tobacco Use Types Packs/Day Years [...] documented as of this encounter Visit Diagnoses Diagnosis Coronary artery disease, unspecified vessel or lesion type, unspecified whether angina present, unspecified whether [place] or transplanted heart documented in this encounter Additional Health Concerns Assessment Noted Time PHQ-9 Depression Total Score: 0 01/12/20 24 9:02 AM EDT documented as of this encounter Care Teams Pharmacy Services Director Relationship Specialty Start Date End Date Sunita Lezama MD [address] [place] [address] PCP - General Family Medicine 04/02/21 documented as of this encounter
--- OUTSIDE RECORDS SUMMARY | 2024-07-01 11:44 | XMS_ITS | Encounter Summary ---
Author Organization [employer] Address [address] [facility] [address] [place] [address] Care Team Providers Care Metal Machine Setter Name Role Phone Sunita Lezama MD Primary Care Provider [phone] Reason for Visit * Reason Comments Med Refill Encounter Details Date Type Department Care Team ([facility] Contact Info) Description 07/20/2022 Refill [facility] [address] [place], [place] [phone] Falguni Fried MD Generalized abdominal pain Social History Tobacco Use Types Packs/Day Years Used Date Smoking Tobacco: Never Passive Smoke Exposure: Never Smokeless Tobacco: Never Alcohol Use Standard Drinks/Week Comments Never 0 (1 standard drink = 0.6 oz pur e alcohol) Depression Answer Date Recorded Patient Health Questionnaire-9 Score 2 04/19/2022 Depression Answer Date Recorded Patient Health Questionnaire-2 Score 0 04/19/2022 Comments Unknown Sex and Gender Information Value Date Recorded Sex Assigned at Female 02/25/2022 10:32 AM EDT Legal Sex Female 10:32 AM EDT Gender Identity Female 02/25/2022 10:32 AM EDT Sexual Orientation Straight 06/20/2022 11 :21 AM EST COVID-19 Exposure Response Date Recorded In the last 10 days, have yo u been in contact with someone who was confirmed or suspected to have Coronavirus/COVID-19? No / Unsure 07/05/2022 11:00 AM EST documented as of this encounter Miscellaneous Notes * Telephone Encounter - Sunita Lezama MD - 07/25/2022 12:58 PM EDT This is a not a senior living medication this is for short term, at this moment will refused this request documented in this encounter Plan of Treatment Not on file documented as of this encounter Visit Diagnoses Diagnosis Generalized abdominal pain Abdominal pain, generalized documented in this encounter Additional Health Concerns Assessment Noted Time PHQ-9 Depression Total Score: 2 04/19/20 22 10:21 AM EST documented as of this encounter Care Teams Metal Machine Setter Relationship Specialty Start Date End Date Sunita Lezama MD [address] [place] [id number] PCP - General Family Medicine 04/02/21 documented as of this encounter
--- OUTSIDE RECORDS SUMMARY | 2024-07-01 11:44 | XMS_ITS | Encounter Summary ---
Author Organization [employer] Address [address] [facility] [address] [place] [address] Care Team Providers Care Practice Business Asst Name Role Phone Sunita Lezama MD Primary Care Provider [phone] Reason for Visit * Reason Comments Med Refill Encounter Details Date Type Department Care Team ([facility] Contact Info) Description 06/06/2024 Refill [facility] [address] [place], [place] [phone] Sunita Lezama MD [address] [place] [address] Hypertension, unspecified type Social History Tobacco Use Types Packs/Day Years [...] as of this encounter Visit Diagnoses Diagnosis Hypertension, unspecified type documented in this encounter Additional Health Concerns Assessment Noted Time PHQ-9 Depression Total Score: 0 01/12/20 24 9:02 AM EDT documented as of this encounter Care Teams Practice Business Asst Relationship Specialty Start Date End Date Sunita Lezama MD [address] [place] [address] PCP - General Family Medicine 04/02/21 documented as of this encounter
--- OUTSIDE RECORDS SUMMARY | 2024-07-01 11:44 | XMS_ITS | Clinical Summary ---
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 Glenn Izaguirre - [facility] Medical History Medical History Date Comments MCI (mild cognitive impairment) 07/27/2018 DX:MCI (mild cognitive impairment) Family History Medical History Relation Name Comments Other cancer Brother Colon cancer Father Dementia Mother Stroke Mother Breast cancer Sister 1 dx'd age? Alzheimer's disease Sister 2 Relation Name Status Comments Brother Father Mother Sister 1 dx'd age? Alive Sister 2 Social History Tobacco Use Types Packs/Day Years Used Date Smoking Tobacco: Never Smokeless Tobacco: Never Comments Unknown Sex and Gender Information Value Date Recorded Sex Assigned at Not on file Legal Sex Female 11:14 AM EST Gender Identity Not on file Sexual Orientation Not on file Obstetrics History Last Filed Vital Signs Vital Sign Reading Time Taken Comments Blood Pressure - - Pulse - - Temperature - - Respiratory Rate - - Oxygen Saturation - - Inhaled Oxygen Concentration - - Weight 83.9 kg (185 lb) 04/30/2022 11:09 AM EST Height 162.6 cm (5' 4 ) 04/30/2022 11:09 AM EST Body Mass Index 31.75 04/30/2022 11:09 AM EST Plan of Treatment Upcoming Encounters Date Type Department Care Team (Late st Contact Info) Description 11/12/2024 1:50 PM EDT Appointment Radiology Department [address] [address] Health Maintenance Due Date Last Done Comments DTaP,Tdap,and Td Vaccines (1 - Tdap) 10/27/1966 Pneumococcal Vaccine: 50+ Years (1 of 2 - PCV) 10/27/1966 Zoster Vaccines (1 of 2) 10/27/1997 Cholesterol Screening (Lipid Panel) 04/05/2022 Depression Screening 04/05/2022 Falls Risk Assessment 04/05/2022 Hepatitis C Screening 04/05/2022 Social Influencers of Health Screening 04/05/2022 RSV Immunization Patients 60+ Years Old (1 - 1-dose 75+ series) 10/27/2022 COVID-19 Vaccine ( season) 2023 Influenza Vaccine (#1) 2023 02/26/2018 Osteoporosis Screening (Bone Density Screening) 03/29/2031 03/29/2021, 09/05/2017 Breast Cancer Screening Discontinued 11/11/19 24, 11/11/2023, 05/23/2022, Additional history exists HIB Vaccines Aged Out [...] on patient's age to complete this topic MMR Vaccines Aged Out No longer eligi ble based on patient's age to complete this topic Meningococcal ACWY Vaccine Aged Out N o longer eligible based on patient's age to complete this topic Meningococcal B Vacine Aged Out No lo nger eligible based on patient's age to complete this topic RSV Immunization Patients Under 20 months Aged Out No longer eligible based on patient's age to complete this topic Varicella Vaccines Aged Out No longer eligible based on patient's age to complete this topic Medical Devices Implanted Type Area Brooch And Bracelet Maker Device Identifier Shelf Expiration Date Model / Serial / Lot [employer] Suture Q-Fix Od2.8 Mm - [id number] Implanted:Qty: 2 on 04/12/2019 by Wagner Evans MD Right: Shoulder [employer] 12/23/20210 / / [id number] [employer] Suture Q-Fix Od2.8 Mm - [id number] Implanted:Qty: 1 on 04/12/2019 by Wagner Evans MD Right: Shoulder [employer] 10/05/2021 / / [id number] [employer] Suture Q-Fix Od2.8 Mm - [id number] Implanted:Qty: 1 on 04/12/2019 by Wagner Evans MD Right: Shoulder [employer] 11/19/2021 / / [id number] Procedures Procedure Name Priority Date/Time Associated Diagnosis Comments SCREENING MAMMOGRAPHY BI 2-VIEW BREAST INC CAD Routine 11/11/2023 1:12 PM EDT Encounter for screening mammogram for malignant neoplasm of breast DXA BONE DENSITY STUDY 1+ SITS AXIAL SKEL Routine 03/29/2021 3:51 PM EST Encounter for screening for osteoporosis from Last 3 Months or Most Recently Relevant to Health Maintenance Results * SCREENING MAMMOGRAPHY BI 2-VIEW BREAST INC CAD (11/11/2023 1:12 PM EDT) Anatomical Region Laterality Modality Radiographic Steffanie ging 05/23/2022 1:03 PM EST Narrative 11/12/2023 12:00 PM EDT This is a summary report. The complete report is available in the patient's medical record. If you cannot access the medical record, please contact the sending organization for a detailed fax or copy. Full field digital screening tomosynthesis mammography, reviewed with CAD and compared to previous. The breasts are composed of fatty and fibroglandular tissue. ??No suspicious mass, architectural distortion or suspicious calcifications are identified. IMPRESSION: : No mammographic evidence of malignancy. BIRADS 1-Negative; N. 5 year breast cancer risk assessment N/A Lifetime breast cancer risk assessment N/A Breast cancer risk category Breast cancer risk not assessed Procedure Note Gopal Gan MD - 02/11/2024 This is a summary report. The complete report is available in thepatient's medical record. If you cannot access the medical record, pleasecontact the sending organization for a detailed fax or copy. Full field digital screening tomosynthesis mammography, reviewed with CADand compared to previous. The breasts are composed of fatty andfibroglandular tissue. No suspicious mass, architectural distortion orsuspicious calcifications are identified. IMPRESSION: : No mammographic evidence of malignancy. BIRADS 1-Negative; N. 5 year breast cancer risk assessment N/A Lifetime breast cancer risk assessment N/A Breast cancer risk category Breast cancer risk not assessed us Sunita Lezama MD IMG XR PROCEDURES Final Resul t * DXA BONE DENSITY STUDY 1+ SITS AXIAL SKEL (03/29/2021 3:51 PM EST) Anatomical Region Laterality Modality Bone Densitometr y 10/03/2020 10:3 7 AM EDT Narrative 03/29/2021 6:02 PM EST BONE DENSITY ? Lumbar Spine T-score is -1.6 ?? (SD relative to 20-29 y/o adult) Z-score is +0.7 ??(SD relative to age matched peers) This is consistent with osteopenia by criteria defined by the WHO. Left Hip T-score is -0.8 Z-score is +1.2 This is normal by criteria defined by the WHO. Comparison exam(s): no statistically significant change in the bone density of the hip and lumbar spine when compared to most recent bone density examination ?? Confidence level is +/-95%. Impression: Based on the World Health Organization criteria, Erin Porter should be classified as having osteopenia. This patient has a 4.3% risk of major osteoporotic fracture and a 0.6% risk of hip fracture over the next 10 years. (World Health Organization Fracture Risk Assessment) The [facility] Department of Internal Medicine recommends using National Osteoporosis Foundation (NOF) guidelines in treatment decisions related to osteoporosis. NOF guidelines suggest considering treatment for postmenopausal women and men aged 50 or older presenting with the following: History of hip or vertebral fracture. T-score less than or equal to -2.5 (DXA) at the femoral neck, total hip, or spine, after appropriate evaluation to exclude secondary causes. Low bone mass (T-score between -1.0 and -2.5 at the femoral neck or spine) AND a 10-year probability of a hip fracture greater than or equal to 3% OR a 10-year probability of a major osteoporosis-related fracture greater than or equal to 20% based on the [place]-adapted WHO algorithm Please note that all treatment decisions require clinical judgment and consideration of individual patient factors, including patient preferences, co-morbidities, previous drug use, risk factors not captured in the FRAX model (e.g., frailty, falls, vitamin D deficiency, increased bone turnover, interval significant decline in bone density) and possible under- or over-estimation of fracture risk by FRAX. Procedure Note Kandace Acevedo MD - 04/16/2022 BONE DENSITY Lumbar Spine T-score is -1.6 (SD relative to 20-29 y/o adult) Z-score is +0.7 (SD relative to age matched peers) This is consistent with osteopenia by criteria defined by the WHO. Left Hip T-score is -0.8 Z-score is +1.2 This is normal by criteria defined by the WHO. Comparison exam(s): no statistically significant change in the bonedensity of the hip and lumbar spine when compared to most recent bonedensity examination Confidence level is +/-95%. Impression: Based on the World Health Organization criteria, Erin Carrion be classified as having osteopenia. This patient has a 4.3% risk ofmajor osteoporotic fracture and a 0.6% risk of hip fracture over the next10 years. (World Health Organization Fracture Risk Assessment) The [facility] Department of Internal Medicine recommendsusing National Osteoporosis Foundation (NOF) guidelines in treatmentdecisions related to osteoporosis. NOF guidelines suggest consideringtreatment for postmenopausal women and men aged 50 or older presentingwith the following: History of hip or vertebral fracture. T-score less than or equal to -2.5 (DXA) at the femoral neck, total hip,or spine, after appropriate evaluation to exclude secondary causes. Low bone mass (T-score between -1.0 and -2.5 at the femoral neck or spine)AND a 10-year probability of a hip fracture greater than or equal to 3% ORa 10-year probability of a major osteoporosis-related fracture greaterthan or equal to 20% based on the [place]-adapted WHO algorithm Please note that all treatment decisions require clinical judgment andconsideration of individual patient factors, including patientpreferences, co-morbidities, previous drug use, risk factors not capturedin the FRAX model (e.g., frailty, falls, vitamin D deficiency, increasedbone turnover, interval significant decline in bone density) and possibleunder- or over-estimation of fracture risk by FRAX. Kamla Cano MD [facility] [place]XA PROCEDURES Final Res ult from Last 3 Months or Most Recently Relevant to Health Maintenance Care Teams Metal Smelter Relationship Specialty Start Date End Date Kamla Cano MD PCP - General Internal Medicine 07/11/17
--- OUTSIDE RECORDS SUMMARY | 2024-07-01 11:44 | XMS_ITS | Continuity of Care Document ---
Author Organization [place] [facility] [place] Address [address] [facility] [address] [place] [address] Assessment Encounter Date Assessment Date Assessment LastModified by Organization Details LastModified Time 06/24/2024 06/24/2024 78-year-old female with right greater than left-sided knee pain. History, examination and x-rays are consistent with osteoarthritis . After discussion regarding treatment options she wishes to proceed with cortisone injection to the right knee today. Follow-up with me in 2 months. At that point we will discuss her response to the cortisone injection, discuss any input from the environmental management specialist, and possibly do a cortisone injection to the left knee. This patient was seen and evaluated by Aby Alvarez MS, LADAN in indirect conjunction with documenting/cagle pervising provider Kevin Nj MD. He agrees with history, physical examination, tests/diagnost ic imaging, and treatment plan. This document was generated using voice recognition software. As a result, there may be unintended spelling, grammatical and/or textual errors. Not available 06/24/2024 10:01:43 Plan of Treatment Reminders Order Date Submit Date Provider Last Modified By Organization Details Last Modified Time Details Appointments FOLLOW UP 2024 11:15A M ABY ALVAREZ PA-C Not available Not available Not available Lab None recorded. Referral None recorded. Procedures None recorded. Surgeries None recorded. Imaging None recorded. Medication Orders Marcaine (PF) 0.5 % (5 mg/mL) injection solution 2024 025 [email or web address] [id number], [address], [place], [address], 06/24/2024 11:42:59 lidocaine (PF) 100 mg/5 mL (2 %) injection syringe [id number], [address] [place], [address], 06/24/2024 11:42:59 triamcino lone acetonide 40 mg/mL suspensio n for injection [address]/[id number], [address] [place], [address], 06/24/2024 11:42:59 Patient TargetsNo targets recorded. Patient InstructionsNo instructions recorded. Reason for Referral None Reported. Problems Name Problem SNOMED Code Status Onset Date Resolution Date Notes Provider Name and Address Organization Details Recorded Time Carpal tunnel syndrome of left wrist [id number] 2 Active 2023 Kelly mccann MD [address], [place], [address], [place] [facility], P 4 10:53:51 Low back pain 330704170 Active 2023 ABY ALVAREZ PA-C [address], [place], [address], [place] [facility], P 4 10:06:17 Carpal tunnel syndrome of right wrist 50528202461100 8 Active 2024 Kelly mccann MD [address], [place], [address], [place] [facility], P 5 12:49:02 Primary gonarthros is, bilateral 824812586 Active 2024 ABY ALVAREZ PA-C [address], [place], [address], [place] [facility], P 5 10:00:32 Problem Notes None recorded. Procedures Surgical History Date Name Laterality Status Provider Name and Address Organization Details Recorded Time 5 MJG Knee injection w/US completed ABY ALVAREZ, PA-C [address] [facility],[address], [place], [address], [place] [facility], P 06/24/2024 10:00:16 Carpal tunnel surgery completed Dar Cramer [facility], P 08/02/2022 09:26:33 Shoulder Surgery completed Dar Cramer [facility], P 08/02/2022 09:26:51 Imaging Results None recorded. Procedure Notes None recorded. Medical Equipment None Reported. Allergies Allergen ID Allergen Name Allergen Category Reaction Reaction Severity Criticality Documentation Date Start Date Code Code System Note Provider Name and Address Organization Details Recorded Time 1792 Product containin g penicilli n (product) medicatio n Not available Not available Not available 08/02/2022 97228 8001 SNOMED Dar Beniteznchard null, [place] [facility], P 09:25:34 Medications Name Sig Start Date Stop Date Status Note LastModified by Organization Details LastModified Time atorvastati n 40 mg tablet TOME 1 TABLETA POR VIA ORAL TODOS LOS MELCHOR EN LA active Not Available Not Available No t Available prednisone 10 mg tablet TAKE 4 TABS IN MORNING X2 DAYS, THEN 3 TABS DAILY X2 DAYS, THEN 2 TABS X2 DAYS, THEN 1 TAB X2 DAYS active Not Available Not Available No t Available clarithromy robbie 500 mg tablet TAKE 1 TABLET BY MOUTH 2 TIMES DAILY FOR 14 DAYS. 01/28 completed Not Available Not Available Not Available meclizine 12.5 mg tablet TOME GERALDINE TABLETA CADA OCHO HORAS CUANDO SEA NECESARIO FOR DIZZINESS active Not Available Not Available No t Available metronidazo le 500 mg tablet TAKE 1 TABLET BY MOUTH 3 TIMES DAILY FOR 14 DAYS active Not Available Not Available No t Available amlodipine 5 mg tablet TOME 1 TABLETA POR VIA ORAL TODOS LOS MELCHOR EN LA active Not Available Not Available No t Available carvedilol 3.125 mg tablet TOME GERALDINE TABLETA 2 VECES AL REGAN CON LAS COMIDAS active Not Available Not Available No t Available tetracyclin e 250 mg capsule active Not Available Not Available Not Available prednisolon e acetate 1 % eye drops,suspe nsion PONGA GERALDINE GOTA EN LOS DOS OJOS DOS VECES AL D A active Not Available Not Available No t Available triamcinolo ne acetonide 40 mg/mL suspension for injection Take 40 mg by injection route. 2024 active Not Available Not Available Not Avai lable pantoprazol e 40 mg tablet,james yed release active Not Available Not Available Not Available Ear Drops (carbamide peroxide) 6.5 % ADMINISTE R 5-10 DROPS INTO AFFECTED EAR(S) 2 TIMES DAILY FOR 4 DAYS. 01/28 completed Not Available Not Available Not Available omeprazole 20 mg capsule,del ayed release TOME GERALDINE C PSULA DOS VECES AL D A active Not Available Not Available No t Available diclofenac sodium 75 mg tablet,james yed release TOME 1 TABLETA POR V A ORAL CADA 12 HORAS active Not Available Not Available No t Available zinc gluconate 50 mg tablet TOME GERALDINE TABLETA TODOS LOS D EN LA MA OSCAR active Not Available Not Available No t Available ondansetron 4 mg disintegrat ing tablet TOME GERALDINE TABLETA POR V A ORAL CADA OCHO HORAS CUANDO SEA NECESARIO PARA LAS N USEAS Y V MITOS active Not Available Not Available No t Available dicyclomine 10 mg capsule TOME 1 C PSULA POR V A ORAL WAYNE VECES AL D A CUANDO SEA NECESARIO CRAMPING active Not Available Not Available No t Available Marcaine (PF) 0.5 % (5 mg/mL) injection solution Take 4 mL by injection route. 2024 active Not Available Not Available Not Avai lable calcium 500 mg (as carbonate)- vit D3 10 mcg (400 unit) chewable tablet TOME 1 TABLETA POR V A ORAL TODOS LOS D active Not Available Not Available No t Available diclofenac 1 % topical gel APPLY 5 G TOPICALLY 4 TIMES DAILY. active Not Available Not Available No t Available blood pressure test kit-large cuff Check blood pressure on arm as directed active Not Available Not Available No t Available lidocaine (PF) 100 mg/5 mL (2 %) injection syringe Take 4 mL by injection route. 2024 active Not Available Not Available Not Avai lable Vitals None Recorded Social History Question Answer Notes LastModified by Organizat ion Details LastModified Time Tobacco Smoking Status Never Smoker Dar Cramer null, [place] [facility], [facility] 08/02/2022 09:25:59 What Is Your Level Of Alcohol Consumption? None [email or web address] Information not available 08/02/2022 Do You Use Any Illicit Or Recreational Drugs? No [email or web address] Information not available 08/02/2022 Do You Or Have You Ever Used Any Other Forms Of Tobacco Or Nicotine? No [email or web address] Information not available 08/02/2022 Sex: Unknown Functional Status None recorded. Mental Status None recorded. Family History Relationship Description Onset Age of this Age Resolved Age Notes LastModified by Organization Details LastModified Time Brother Family history of malignant neoplasm [email or web address] Not available 02/04 09:40:47 Brother Hyperlipidem ia [email or web address] Not available 02/04 09:40:47 Father Family history of malignant neoplasm [email or web address] Not available 02/04 09:40:47 Father Heart disease [email or web address] Not available 10/2022 09:27:38 Father Hyperlipidem ia [email or web address] Not available 02/04 09:40:47 Mother Family history of malignant neoplasm [email or web address] Not available 02/04 09:40:47 Mother Heart disease [email or web address] Not available 10/2022 09:27:38 Mother Hyperlipidem ia [email or web address] Not available 02/04 09:40:47 Sister Family history of malignant neoplasm [email or web address] Not available 02/04 09:40:47 Sister Hyperlipidem ia [email or web address] Not available 02/04 09:40:47 Medical History Condition Response Hypertension Y Gynecological HistoryNo gynecological history recorded. Obstetrics History GPAL:G 0 P 0 0 0 0 Past Encounters Encounter ID Performer Location Encounter Start Date Encounter Closed Date Diagnosis/Indication Diagnosis SNOMED-CT Code Diagnosis ICD10 Code Diagnosis Note [id number] MD EDGAR Jensenkristen [address] [address] 05/27/2024 10:12:05 05/27/2024 11:35:00 Carpal tunnel syndrome of left wrist [id number] 67296 G56.02 Carpal julio jasmina syndrome of right wrist [id number] 04456 G56.01 [id number] MD EDGAR [facility] [address] [facility] [address] [place] [address] 06/24/2024 09:27:49 06/24/2024 10:20:04 Primary gonarthrosis, bilateral 829543001 M17.0 Osteoarthr itis of right knee joint 0284430040 12013 M17.11 Health Concerns Section Related Observation LastModified by Organization Detai ls LastModified Time None Recorded Concern Status LastModified by Organization Details LastModified Time None Recorded Payers Encounter Date Sequence Insurance Name Policy Number Policy Mueller Covered Member ID Mueller Member ID Guarantor Name 06/24/2024 1 [facility] - DOS ON OR AFTER 2022 - MEDICARE ADVANTAGE [place] (MEDICARE REPLACEMENT/ADV ANTAGE - PPO) Erin Porter [id number] Erin Porter Notes Date Note Type Note Provider Name and Address Organization Details Recorded Time 06/24/2024 text/html 78-year-old fema sebastián presents with persistent right greater than left-sided knee pain. Family reports that there is an appointment scheduled in June for evaluation of her spine. It is my clinical opinion that at least some portion of her lower extremity complaints are deriving from the low back. She describes a worsening of pain at the medial compartment of the right knee. Family reports that she has to lift her leg to get it up into the car. She has required more and more assistance with activities of daily living as a result of knee pain. There has been no new injury, accident or trauma. ABY ALVAREZ PA-C [address] [facility],[address], [place], [address], [place] [facility], [facility] 06/24/2024 10:14:45 OBGyn Episode No OBEpisode recorded.
--- OUTSIDE RECORDS SUMMARY | 2024-07-01 11:44 | XMS_ITS ---
Author Name Joshua MCWILLIAMS, Mr. Ishmael Hairston Address [address] [place] [address] Phone [phone] [facility] Care Team Providers Care Customs Investigator Name Role Phone Vu Lewis Unavailable [phone] Reason for Referral Not Available Allergies, adverse reactions, alerts Allergen Type Reaction Severity Status Onset Date Penicillins Allergy to substance (disorder) rash Unknow n Active N/A History of medication use Medication Class Instructions Start Date End Date Carvedilol 3.125 mg Tab TOME GERALDINE TABLETA DOS VECES AL D A CON ALIMENTO 2021-10-26 No Data Available Diclofenac Sodium 75 mg Tab delayed rel TOME GERALDINE TABLETA DOS VECES AL D A 2021-10-26 No Data Available CALCIUM 500-VIT D3 10 MCG CHEW TOME GERALDINE TABLETA TODOS LOS D 2021-04-02 No Data Available Meclizine 12.5 mg Tab 1 tablet orally ev adin 8 hours as needed 2022-04-29 No Data Available Zinc Gluconate 50 mg Tab 1 tablet orally daily 2022-04 No Data Available Tylenol 325 mg Tab 2 tablet orally ever y 4 hours as needed 2022-04-29 No Data Available Omeprazole 20 mg Cap delayed rel 1 tablet daily 2022-04-29 No Data Available Atorvastatin Calcium 20 mg Tab take 1 tablet orally once daily 2022-04-29 2022-04-30 Diclofenac Sodium 75 mg Tab delayed rel 1 tablet orally 2 times per day 2022-04-29 No Data Available MiraLax 17 GM Packet 1 packet orally kristen ly mixed with 8 ounces of fluid 2022-04-30 No Data Available Problem List Problem Status Onset Date Resolved Date Hypertension Active 2022-04-29 N/A Vertigo Active 2022-04-30 N/A Osteoarthritis Active 2022-04-30 N/A GERD (gastroesophageal reflux disease) Active 20-05-02 N/A Chronic constipation Active 2022-04-30 N/A Neuropathy Active 2022-04-30 N/A Encounters Encounters Type Facility Date of Service Diagnosis/Co mplaint New patient,40-59min; chronic exacerbation, 2 stable chronic or 1 acute illness add add modifier 95 for video (do not use for phone, instead use 68840-15) [facility], ([place] 04[place]/2022 Essential (primary) hypertensionUnspecified osteoarthritis, unspecified siteDizziness and giddinessGastro-esophageal reflux disease without esophagitisOther constipationPolyneuropathy, unspecified New patient,40-59min; chronic exacerbation, 2 stable chronic or 1 acute illness add add modifier 95 for video (do not use for phone, instead use 98122-20) [facility] 04[place]/2022 New patient,40-59min; chronic exacerbation, 2 stable chronic or 1 acute illness add add modifier 95 for video (do not use for phone, instead use 23144-68) [facility] 04[place]/2022 New patient,40-59min; chronic exacerbation, 2 stable chronic or 1 acute illness add add modifier 95 for video (do not use for phone, instead use 33483-45) [facility] 04[place]/2022 New patient,40-59min; chronic exacerbation, 2 stable chronic or 1 acute illness add add modifier 95 for video (do not use for phone, instead use 60806-65) [facility] 04[place]/20[place] New patient,40-59min; chronic exacerbation, 2 stable chronic or 1 acute illness add add modifier 95 for video (do not use for phone, instead use 97770-08) [facility] 04[place]/20[place] New patient,40-59min; chronic exacerbation, 2 stable chronic or 1 acute illness add add modifier 95 for video (do not use for phone, instead use 48943-10) [facility] 04/30/2022 Vital Signs Date of Collection Vitals 2022-04-30 06:21:35 Height - 162.56 cmWe ight - 82.55 kgBody Mass Index (BMI) - 31.24 kg/m2BP Diastolic - 64.0 mm[Hg]BP Systolic - 141.0 mm[Hg]Heart Rate - 66.0 /minRespiratory Rate - 18.0 /minBody Temperature - 36.39 CelO2 % BldC Oximetry - 100.0 % Social History Social History Social History Observation Description Effec tive Time Current Smoking Status Never smoker 2024-06-0 8 Sex Female History of Procedures Procedures Service Procedure code Service date Servicing provider Phone# New patient,40-59min; chronic exacerbation, 2 stable chronic or 1 acute illness add add modifier 95 for video (do not use for phone, instead use [id number]) 25277 2022-04-30 No Data Available No Data Availa ble Medication List Documented (1159F) 1159F 2022-04-30 No Data Available No Data Padma ilable Medication Review by prescribing provider or pharmacist documented (1160F) 1160F 2022-04-30 No Data Available No Data Padma ilable Functional Status Assessed (1170F) 1170F 2022-04-30 No Data Available No Data Avail able Pain Assessment - Pain Documented on a Pain Scale (1125F) 1125F 2022-04-30 No Data Available No Data Padma ilable Advance Care Directive Advance care planning discussion documented in the medical record (1158F) 1158F 2022-04-30 No Data Available No Data Availa ble BMI obtained (3008F) 3008F 2022-04-30 No Data Availab le No Data Available Functional Status Functional Category Effective Dates Needs occasional assistance with bathing and dressing, independent with toileting and eating. Uses a cane to ambulate. 2022-04-30 Mental Status Status Date AAO x 3 2022-04-30 Assessments Date of Service Assessments 2022-04-30 06:21:35 HypertensionOsteoart hritisVertigoGERD (gastroesophageal reflux disease)Chronic constipationNeuropathy Plan of Care Date of Service Plans 2022-04-30 06:21:35 Medication Review by prescribing provider or pharmacist documented (1160F)Medication List Documented (1159F)Functional Status Assessed (1170F)Advance Care Directive Advance care planning discussion documented in the medical record (1158F)BMI obtained (3008F)sbdbTelevideo new patient,40-59min; chronic exacerbation, 2 stable chronic or 1 acute illness add modifier 95Pain Assessment - Pain Documented (1125F)Continue to see PCP. Follow-up with [facility] as needed for any acute or disease education needs that may arise.Monitors BP at home only when not feeling wellPer outside care 141/64 (03/2022)RX: CoregManagement as per PMDRecommend low salt diet and monitoring BPs at home daily and log readingsEndorses chronic joint pain to both hands and kneesRX: Tylenol PRN, DiclofenacManagement as per PMD - Follows up every 3 monthsUses a cane to ambulateStable on MeclizineRX: Meclizine PRNManagement as per PMD - Follows up every 3 monthsStable on current regimenRX: OmeprazoleManagement as per PMD - Follows up every 3 monthsAvoid fatty foods, spicy foods, greasy foods, caffeineCurrent regimen effectiveRX: Miralax dailyManagement as per PMD - Follows up with PMD every 3 monthsRecommend adding high fiber foods to diet, drink plenty of fluids, regular exercise/activityEndorses nerve pain and numbness to both handsNo active treatmentFollows up with PMD every 3 months Health Concerns Date Concern 2022-04-30 Visit completed by a udio and video using [employer] Tablet. Introductory visit with [facility] to establish care. Today, patient has chief complaint of: establishing care.Reviewed Allergies, Medications, Active Medical conditions, past medical/surgical history, Social history. 2022-04-30 Most recent hospital stay(s) or ER visit(s) and precipitating factors: Reports none 2022-04-30 Advance care plangiacomo hanley discussion. Conversation today with: <Confirms advanced care directive in place. Granddaughter is healthcare proxy: Nanci Brasher> 2022-04-30 Open HEDIS Measure r eview: 2022-04-30 Patient verbally con sented to the release of healthcare information for the purposes of this visitand for caring and treatment at [facility]. Patient verbally consented to any as neededcare by [facility].
--- OUTSIDE RECORDS SUMMARY | 2024-07-01 11:44 | XMS_ITS | Patient Health Record ---
Author Organization [facility] Address [address] [place] [address] Care Team Providers Care Operations And Maintenance Technician Name Role Phone Kamla Cano Primary Care Provider Unavaila ble Allergies Allergen (clinical drug ingredient) Drug/Non Drug Allergy documented on EMR Reaction Allergy Type Onset Date Status Substance with penicillin structure and antibacterial mechanism of action (substance) Penicillins (uncoded) Unknown Allergy Active Reason For Referral No Information Medications Medication SIG (Take, Route, Frequency, Duration) Notes Start Date End Date Status Polyethylene Glycol - as directed Active Omeprazole 20 MG 1 capsule 30 minutes before morning meal Orally Once a day Active Acetaminophen 325 MG 2 tablets Orally th ree times daily as needed for pain Active Mometasone Furoate 0.1 % 1 application t o itchy skin around toe Externally Twice a day for 30 day(s) 09/27/2020 Active Problems Problem Type SNOMED Code ICD Code Onset Dates Problem Status W/U Status Risk Notes Problem [id number] 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 Plan Of Treatment No Information Insurance Providers Payer Name Payer Address Payer Phone Subscriber Number Group Number Insured Name Patient Relationship to Insured Coverage Start Date Coverage End Date [facility] [address] [address] [place] [address] [phone] [id number] Erin Graves Self - patient is the insured Medical (General) History Medical History History ICD Code Tendinopathy of rotator cuff, right Chronic right shoulder pain Bilateral carpal tunnel syndrome MCI ( mild cognitive impairment) Hyperlipidemia Osteoporosis Arthritis Asthma Surgical History Surgery Date(Month/Year) Arthroscopy, shoulder with rotator cuff repair, right 04/12/19 Historical carpal tunnel, left 01/2020 Historical Cholecystectomy Historical Hysterectomy Historical Tubal Ligation
--- OUTSIDE RECORDS SUMMARY | 2024-07-01 11:44 | XMS_ITS | Encounter Summary ---
Author Organization [facility] Address [address] [place] [address] Care Team Providers Care Urology Surgeon Name Role Phone Sunita Lezama MD Primary Care Provider [phone] Encounter Details Date Type Department Care Team (Late st Contact Info) Description 11/13/2023 Orders Only [facility] [address] [place], [place] [phone] ProviderBrandon MD Social History Tobacco Use Types Packs/Day Years [...] on file documented as of this encounter Procedures Procedure Name Priority Date/Time Associated Diagnosis Comments MAMMOGRAPHY SCREENING Routine 11/11/2023 9:04 AM EDT documented in this encounter Results * MAMMOGRAPHY SCREENING (11/11/2023 9:04 AM EDT) Anatomical Region Laterality Modality Breast Left Mammography Historical Provider MD CROWELL BI PROCEDURES Final R esult documented in this encounter Visit Diagnoses Not on filedocumented in this encounter Additional Health Concerns Assessment Noted Time PHQ-9 Depression Total Score: 2 04/19/20 22 10:21 AM EST documented as of this encounter Care Teams Urology Surgeon Relationship Specialty Start Date End Date Sunita Lezama MD [address] [place] [address] PCP - General Family Medicine 04/02/21 documented as of this encounter
--- OUTSIDE RECORDS SUMMARY | 2024-07-01 11:44 | XMS_ITS | Data Portability ---
Author Organization [place] [facility] [place] Address [address] [place] [address] Assessment Encounter Date Assessment Date Assessment LastModified by Organization Details LastModified Time 02/05/2024 02/05/2024 The above findin gs were discussed in detail today with the patient and her granddaughter, she has evidence of prior left carpal tunnel release with recurrent symptoms after a period of symptom-free relief. This could indicate recurrent carpal tunnel syndrome. This was discussed in detail today with the patient. At this point I would like him proceed with a repeat electrodiagnostic study to evaluate for compression at the carpal tunnel. I did let them know that even after successful carpal tunnel release, the study does not ever go back to normal. It is helpful to have the old study for comparison which we have today. Depending on the results of the nerve conduction study, treatment options would be discussed which may include nonoperative versus revision carpal tunnel release surgery. In the meantime we will provide her a carpal tunnel brace which she should wear at night which may help to relieve her symptoms. She can take brace and ice as needed. I will have her follow-up with me in 3 weeks after obtaining electrodiagnostic studies to go over the new test and further treatment options. All of her and her granddaughter's questions were answered, they are in agreement the plan. Not available 02/05/2024 12:08:06 02/19/2024 02/19/2024 78-year-old fema le with left greater than right sided knee pain. History and exam are consistent with mild osteoarthritis of bilateral knees but otherwise benign knee exam. Based on her involvement of low back pain and description of tingling and numbness I believe the majority of her symptoms are coming from the low back. Recommendations are for a prednisone taper and a course of physical therapy. Follow-up in 2 months with a member of our nonsurgical spine team. This patient was seen and evaluated by Aby Rome MS, PA-C in indirect conjunction with documenting/supervi sing provider Kevin Nj MD. He agrees with history, physical examination, tests/diagnostic imaging, and treatment plan. This document was generated using voice recognition software. As a result, there may be unintended spelling, grammatical and/or textual errors. Not available 02/19/2024 10:07:46 04/29/2024 04/29/2024 78-year-old fema le who presented initially for left hip and knee pain has signs and symptoms consistent with lumbar radiculopathy. Recommendations are for continued evaluation and management by a peer specialist. Follow-up with this orthopedic office is as needed. This patient was seen and evaluated by Aby Rome MS, PA-C in indirect conjunction with documenting/supervi sing provider Kevin Nj MD. He agrees with history, physical examination, tests/diagnostic imaging, and treatment plan. This document was generated using voice recognition software. As a result, there may be unintended spelling, grammatical and/or textual errors. Not available 04/29/2024 11:00:27 05/27/2024 05/27/2024 The above findin gs were discussed in detail today with the patient. She continues to have symptoms of numbness and tingling and pain in the hand and the fingers. She has clinical signs provocative for carpal tunnel syndrome. I did explain to her and her daughter that I will typically get a nerve conduction study to evaluate for progression of disease as we have her old study to compare it to. Again we will work on having her get this done at [facility], there seem to be some confusion that was where the test was ordered last time. We will reach out to the department here and make sure that they call the patient to schedule it within the next week. I did let her know that depending on the results of the study, she has a couple different treatment options. Typically I would prefer to do a cortisone injection into the carpal tunnel to evaluate for relief of symptoms. If she does get relief of symptoms, this may mimic what a surgical revision carpal tunnel surgery could provide her. I did let her know that revision carpal tunnel surgery involves a larger incision, greater risk for damage to the nerve, and less chance that she gets complete relief of symptoms. She understands this. She will obtain nerve conduction study and follow-up after. If I am out on maternity leave, I gave her the name of another local hand surgeon that she can see for follow-up if she does not want to wait until August to see me back. All of her questions were answered, she is in agreement the plan. Not available 05/27/2024 12:52:00 06/24/2024 06/24/2024 78-year-old fema le with right greater than left-sided knee pain. History, examination and x-rays are consistent with osteoarthritis. After discussion regarding treatment options she wishes to proceed with cortisone injection to the right knee today. Follow-up with me in 2 months. At that point we will discuss her response to the cortisone injection, discuss any input from the peer specialist, and possibly do a cortisone injection to the left knee. This patient was seen and evaluated by Aby Rome MS, LADAN in indirect conjunction with documenting/supervi sing provider Kevin Nj MD. He agrees with history, physical examination, tests/diagnostic imaging, and treatment plan. This document was generated using voice recognition software. As a result, there may be unintended spelling, grammatical and/or textual errors. Not available 06/24/2024 10:01:43 Plan of Treatment Reminders Order Date Submit Date Provider Last Modified By Organization Details Last Modified Time Details Appointments FOLLOW UP 2024 11:15A M ABY ROME PA-C Not available Not available Not available Lab None recorded. [facility]/EMG for left recurrent carpal tunnel syndrome s/p CTR 2019 024 [email or web address] [address] [place] [address], [place], [address], 06/02/2024 08:44:46 Procedures None recorded. Surgeries None recorded. Imaging XR, knee, 4 or more view 10/24/ 2024 10/24/2 024 [email or web address] 5 [facility], [address], [address], [place], [address], 02/19/2024 10:06:39 XR, knee, 4 or more view 2023 024 [email or web address] 5 [facility], [address], [address], [place], [address], 02/19/2024 10:06:39 XR, wrist, 3 or more view 2023 024 [email or web address] [facility], [address], [place], [address], 02/05/2024 12:36:51 Medication Orders Marcaine (PF) 0.5 % (5 mg/mL) injection solution [address]/[facility]armacy [id number], [address] [place], [address], 06/24/2024 11:42:59 lidocaine (PF) 100 mg/5 mL (2 %) injection syringe [address]/Pharm[address][id number], [address] [place], [address], 06/24/2024 11:42:59 triamcino lone acetonide 40 mg/mL suspensio n for injection [address]/Pharmacy [address][id number], [address] [place], [address], 06/24/2024 11:42:59 prednison e 10 mg tablet 2023 024 [facility]/Pharmacy #[id number], [address] [place], [address], 02/19/2024 10:07:01 Patient TargetsNo targets recorded. Patient Instructions Encounter Date Encounter Id Patient Instructions Last Modified By Organization Details Last Modified Time 02/05/2024 [id number] views of the l eft hand were ordered and reviewed today, this demonstrates no acute findings. There is anatomic alignment of the wrist and carpal bones. Good mineralization of the bones. Review of records demonstrates a left endoscopic carpal tunnel release on 01/25/[address] Izaguirre after which she had complete resolution of her symptoms. Nerve conduction study and EMG performed on 11/04/2018 was available for review in our system, this demonstrates a left median sensory latency of 5.9, a right median sensory latency of 4.9, a left motor median latency of 6.1, a right motor median latency of 5.5. There were no EMG changes in the tested muscle groups. The findings demonstrate an abnormal study with electrodiagnostic evidence of bilateral moderate severe median neuropathy at the wrist. This is consistent with carpal tunnel syndrome. No signs of ulnar neuropathy, brachial plexopathy, or cervical radiculopathy. Not available 02/05/2024 12:06:34 02/19/2024 [id number] physical therapy * - Diagnosis: Low back pain with bilateral lower extremity radiculopathy including knee pain Evaluate and treat as indicated to reduce pain and to improve strength, mobility, stability, range of motion, and function. Please teach a home exercise plan and incorporate PT into patient's exercise routine. 2-3 sessions weekly for 6-8 weeks. [email or web address] Not available 02/26/2024 08:34:23 prednisone dosag e instructions Not available 02/19/2024 10:06:59 {{2 3 4 5 6 7 8* 9}} view X-ray study obtained during today's office encounter show evidence of {{mild* moderate jennifer re}} {{right left bilatera l*}} {{hip knee*}} osteoarthritis. There is joint space narrowing, subchondral sclerosis and marginal osteophytosis. Kellgren-Ender grade {{0 1* 2 3 4}}. No evidence of acute fracture or osteolytic findings. Not available 02/19/2024 10:06:08 05/27/2024 [id number] views of the l eft hand were ordered and reviewed today, this demonstrates no acute findings. There is anatomic alignment of the wrist and carpal bones. Good mineralization of the bones. Review of records demonstrates a left endoscopic carpal tunnel release on 01/25/[address] Izaguirre after which she had complete resolution of her symptoms. Nerve conduction study and EMG performed on 11/04/2018 was available for review in our system, this demonstrates a left median sensory latency of 5.9, a right median sensory latency of 4.9, a left motor median latency of 6.1, a right motor median latency of 5.5. There were no EMG changes in the tested muscle groups. The findings demonstrate an abnormal study with electrodiagnostic evidence of bilateral moderate severe median neuropathy at the wrist. This is consistent with carpal tunnel syndrome. No signs of ulnar neuropathy, brachial plexopathy, or cervical radiculopathy. Not available 05/27/2024 12:46:32 Reason for Referral Physical Medicine And Rehabi litation Referral for Carpal tunnel syndrome of left wrist nerve conduction study/EMG for left recurrent carpal tunnel syndrome s/p CTR 2019 Referring Physician: Kelly Mclean, Orthopedic Surgery, Encounter Date: 02/05/2024 Results Created Date Observation Date Name Description Value Unit Range Abnormal Flag Note LastModifiedBy Organization Detail LastModifiedTime 02/10/20 24 physi cherelle thera py* No observ ation record ed. snarus Not Available 2024 11:57:32 Result Notes None recorded. Problems Name Problem SNOMED Code Status Onset Date Resolution Date Notes Provider Name and Address Organization Details Recorded Time Carpal tunnel syndrome of left wrist 63438050539693 2 Active 2023 Kelly mccann MD [address], [place], [address], [place] [facility], [facility] 4 10:53:51 Low back pain 410351918 Active 2023 ABY ROME PA-C [address], [place], [address], [place] [facility], [facility] 4 10:06:17 Carpal tunnel syndrome of right wrist 79409810845635 8 Active 2024 Kelly mccann MD [address], [place], [address], [place] [facility], [facility] 5 12:49:02 Primary gonarthros is, bilateral 338354891 Active 2024 ABY ROME PA-C [address], [facility] [place], [address], [place] [facility], [facility] 5 10:00:32 Problem Notes None recorded. Procedures Surgical History Date Name Laterality Status Provider Name and Address Organization Details Recorded Time MJG Knee injection w/US completed ABY ROME PA-C [address], [place], [address], [place] [facility] 06/24/2024 10:00:16 Carpal tunnel surgery completed Dar Cramer [place] [facility] 08/02/2022 09:26:33 Shoulder Surgery completed Dar Cramer [facility] 08/02/2022 09:26:51 Imaging Results Imaging Date Name Status LastModified by Organiz ation Details LastModified Time 02/10/2024 physical therapy* completed [email or web address] Information not available 06/01/2024 11:57:32 Procedure Notes None recorded. Medical Equipment None Reported. Allergies Allergen ID Allergen Name Allergen Category Reaction Reaction Severity Criticality Documentation Date Start Date Code Code System Note Provider Name and Address Organization Details Recorded Time 179 Product containin g penicilli n (product) medicatio n Not available Not available Not available 08/02/2022 73340 8001 SNOMED Dar Cramer [facility], [place] - [facility] 09:25:34 Medications Name Sig Start Date Stop Date Status Note LastModified by Organization Details LastModified Time atorvastati n 40 mg tablet TOME 1 TABLETA POR VIA ORAL TODOS LOS MELCHOR EN LA MANANA active Not Available Not Available No t [...] VIA ORAL TODOS LOS MELCHOR EN LA MANANA active Not Available Not Available No t [...] Available Not Available Not Avai lable Vitals Date Recorded Body height Body mass index (BMI) Body weight Provider Name and Address Organization Details Last Updated DateTime 04/29/2024 162.56 cm 31.8 kg/m2 87061.59 g Puja Montes [place] - [facility] 04/29/2024 10:42:02 Date Recorded Body height Provider Name an d Address Organization Details Last Updated DateTime 05/27/2024 162.56 cm Patricia Wallace [facility] 05/27/2024 10:50:45 Social History Question Answer Notes LastModified by Organizat ion Details LastModified Time Tobacco Smoking Status Never Smoker Dar dawkins, [place] - [facility] 08/02/2022 09:25:59 What Is Your Level Of Alcohol Consumption? None [email or web address] Information not available 08/02/2022 Do You Use Any Illicit Or Recreational Drugs? No [email or web address] Information not available 08/02/2022 Do You Or Have You Ever Used Any Other Forms Of Tobacco Or Nicotine? No [email or web address] Information not available 08/02/2022 Sex: Unknown Functional [...] Not available 02/04 09:40:47 Father Heart disease [email or web address] Not available 10/2022 09:27:38 Father Hyperlipidem ia [email or web address] Not available 02/04 09:40:47 Mother Family history of malignant neoplasm [email or web address] Not available 02/04 09:40:47 Mother Heart disease [email or web address] Not available 10/2022 09:27:38 Mother Hyperlipidem ia [...] SNOMED-CT Code Diagnosis ICD10 Code Diagnosis Note [id number] MD [facility] [address] [address] 08/02/2022 08:39:42 08/02/2022 09:26:09 Low back pain 204718769 M54.50 Chronic low back pain 27 2441051 M54.50 [id number] MD EDGAR Jensen [facility] [address] [address] 02/05/2024 09:40:09 02/05/2024 10:55:59 Pain of left wrist 2569631672 20176 M25.532 Carpal julio jasmina syndrome of left wrist 4994201008 56319 G56.02 [id number] MD EDGAR Deankristen [address] [address] 02/19/2024 09:34:37 02/19/2024 10:06:39 Pain of right knee region 5986607951 83401 M25.561 Pain of le ft knee region 3238654442 16801 M25.562 Low back pain 955798555 M54.50 [id number] MD EDGAR Deankristen [address] [address] 04/29/2024 10:04:46 04/29/2024 10:58:45 Low back pain 157967325 M54.50 [id number] MD EDGAR Jensen [facility] 299 [facility] [address] [place] [address] 05/27/2024 10:12:05 05/27/2024 11:35:00 Carpal tunnel syndrome of left wrist 7329526310 42100 G56.02 Carpal julio jasmina syndrome of right wrist 9407119946 39824 G56.01 [id number] [facility] [address] [facility] [address] [place] [address] 06/24/2024 09:27:49 06/24/2024 10:20:04 Primary gonarthrosis, bilateral 952733288 M17.0 Osteoarthr itis of right knee joint 4575267565 22246 M17.11 Health Concerns Section Related Observation LastModified by Organization Detai ls LastModified Time None Recorded Concern Status LastModified by Organization Details LastModified Time None Recorded Advance Directives Directive None Recorded Payers Encounter Date Sequence Insurance Name Policy Number Policy Mueller Covered Member ID Mueller Member ID Guarantor Name 02/05/2024 1 [facility] [facility] - DOS ON OR AFTER 2022 - [place]IC[place]V ANTAGE - PPO) Erin Ortiz Porter [id number] Erin Ortiz Porter 02/19/2024 1 [facility] - DOS ON OR AFTER 2022 - [place]V ANTAGE - PPO) Erin Ortiz Porter [id number] Erin Ortiz Porter 04/29/2024 1 [facility] - DOS ON OR AFTER 2022 - [place]/ADV ANTAGE - PPO) Erin Ortiz Porter [id number] Erin Ortiz Porter 05/27/2024 1 [facility] - DOS ON OR AFTER 2022 - [place]V ANTAGE - PPO) Erin Ortiz Porter [id number] Erin Ortiz Porter 06/24/2024 1 [facility] - DOS ON OR AFTER 2022 - [place]/ADV ANTAGE - PPO) Erin Porter [id number] Erin Porter Notes Date Note Type Note Provider Name and Address Organization Details Recorded Time 02/05/2024 text/html This is a 78-year-old [id number] female who presents with left hand pain and numbness and tingling. She is Italian-speaking only and is accompanied by her granddaughter today who helps to translate. She does have a history of bilateral carpal tunnel releases by Dr. Izaguirre, on the left on 01/25/2020, on the right on 10/16/2020. She notes her symptoms feel similar to how they were preoperative however are more severe. She notes complete relief of her symptoms after the surgery however about 1 to 2 months ago she started noticing increase in symptoms in the left hand, pain in the palm which radiates into the fingers, numbness and tingling which mostly goes into the middle finger. She has subjective weakness. This occurs during the day and can occur at night. Diclofenac cream and medication when she has pain which is somewhat helpful, she has not worn a brace. Her past medical history significant for hypertension for which she takes medication, she denies nicotine or tobacco use, denies illicit drug use, does not drink alcohol. Kelly Mclean MD [address] [place] [address], [address], [place] - [facility] 02/05/2024 12:08:21 02/19/2024 text/html 78-year-old florence lowery presents with complaints of knee pain. She reports the onset of her symptoms many months ago. There is been no specific injury accident or trauma. When asked to localize her pain she gestures to the lateral aspects of the knees and moves her hands in a swath of the outside of the thigh into the buttock and states that it includes her low back. She reports pain as well as sensations of tingling and numbness. She denies a history of surgery at her low back or either hip or knee. She reports having undergone cortisone injections to bilateral knees approximately a year ago. She is clear that this did not give her any relief at all neither long-term nor short-term. There is no description of mechanical locking or feeling of instability of either knee. ABY ROME PA-C [address] [address], [place], [address], [facility] - [facility] 02/19/2024 10:08:10 04/29/2024 text/html 78-year-old fema sebastián presents for recheck of left leg pain. She reports that she used the prednisone that I prescribed her and got significant reduction of the severity of her pain but the effects wore off soon after completion of the prednisone taper. We did schedule a visit for her to see one of our peer specialist but she was subsequently informed that her insurance does not cover [id number] services. Since that time, her daughter has made arrangements for spinal evaluation at practice not otherwise specified in [place]. She is scheduled to be seen on May 06. Otherwise, there is been no substantial change in character quality or location of her symptoms. ABY ROME PA-C [address] [address], [place], [address], [facility] 04/29/2024 11:01:00 05/27/2024 text/html She presents for follow-up of bilateral hand pain and numbness and tingling being worked up for recurrent carpal tunnel syndrome. She is Italian-speaking only and is accompanied by her daughter today who helps to translate. At our last visit, I had ordered a nerve conduction study to evaluate for recurrent carpal tunnel syndrome. Unfortunately patient never had this done. She continues to have pain and numbness in both hands, the left is worse than the right. She describes numbness all the time which is worse in the middle finger but typically is in the thumb, index and middle finger. She states that the small finger is not typically affected. This is all day and at night. It wakes her up from sleep. I did give her braces on her last visit however she says the pain is increased with braces and was unable to tolerate them. She has done nothing else for treatment. She notes swelling and stiffness in the fingers as well. Kelly Mclean MD 299 [facility] [address], [place], [address], [place] - [facility] 05/27/2024 12:52:11 06/24/2024 text/html 78-year-old fema sebastián presents with [...] no new injury, accident or trauma. ABY ROME PA-C [address] [place] [address], [address], [place] - [facility] 06/24/2024 10:14:45 OBGyn Episode No OBEpisode recorded.
--- OUTSIDE RECORDS SUMMARY | 2024-07-01 11:44 | XMS_ITS ---
Author Name [facility] Organization Unknown History of Medication Use Medication Directions Dispensed Refills Start Date End Date Stat us lidocaine (PF) 100 mg/5 mL (2 %) injection syringe Take 4 mL by injection route. 06/24/2024 active triamcinolone acetonide 40 mg/mL suspension for injection Take 40 mg by injection route. 06/24/2024 active Marcaine (PF) 0.5 % (5 mg/mL) injection solution Take 4 mL by injection route. 06/24/2024 active prednisolone acetate 1 % eye drops,suspension PONGA GERALDINE GOTA EN LOS DOS OJOS DOS VECES AL D A active omeprazole 20 mg capsule,delayed release TOME GERALDINE C PSULA DOS VECES AL D A active meclizine 12.5 mg tablet TOME GERALDINE TABLETA CADA OCHO HORAS CUANDO SEA NECESARIO FOR DIZZINESS active zinc gluconate 50 mg tablet TOME GERALDINE TABLETA TODOS LOS D EN LA MA OSCAR active Allergies Allergen Reaction Severity Comment Documented Date Source Statu s PENICILLINS [facility] Problems Problem Status Onset Date Problem Type Date of Resoluti on Source Primary gonarthrosis, bilateral active 2024-06-24 ProblemAct [facility] Low back pain active 2024-02-19 ProblemAct [facility] Carpal tunnel syndrome of right wrist active 2024-05-27 ProblemAct [facility] Carpal tunnel syndrome of left wrist active 2024-02-05 ProblemAct [facility]
== END 2024-07-01 13:51 | disposition home or self-care (01) ==
PROVIDERS: PCP Family Medicine; Visit Provider Physical Medicine & Rehabilitation
DX: M48.062 Spinal stenosis, lumbar region with neurogenic claudication (principal); M54.42 Lumbago with sciatica, left side; M54.41 Lumbago with sciatica, right side; G89.29 Other chronic pain
CPT/HCPCS: 99204

== ENCOUNTER → 2024-07-01 10:12 | Outpatient (BNV) | payer OTHER, SELFPAY | PROVIDERS: PCP Family Medicine; Visit Provider Radiology Diagnostic Radiology | DX: M47.817 Spondylosis without myelopathy or radiculopathy, lumbosacral region (principal) | CPT/HCPCS: 72100 ==

== ENCOUNTER 2024-07-24 10:09 | Outpatient (REF) | payer OTHER, SELFPAY ==
--- NOTE | ~2024-07-24 | MR_ITS ---
EXAMINATION: MR LUMBAR SPINE WITHOUT CONTRAST CLINICAL INFORMATION: Spinal stenosis, lumbar region with neurogenic claudication. COMPARISON: None available. TECHNIQUE: MRI of the lumbar spine was obtained using routine sequences without contrast. FINDINGS: Last rib-bearing vertebra labeled T12. Bone marrow inhomogeneity. No bone marrow STIR signal abnormality. Multilevel marginal osteophyte formation and disc desiccation more conspicuous at L5-S1. Grade 1 retrolisthesis L5-S1. Grade 1 anterolisthesis L3-4. Conus medullaris ends at superior endplate of L1 with normal signal. T12-L1: Facet joint hypertrophy. Broad-based disc bulging. No central spinal canal or neuroforamina stenosis. L1-2: Broad-based disc bulging. Facet joint and ligamentum flavum hypertrophy. Reduced AP diameter of the thecal sac. Bilateral neuroforamina narrowing. L2-3: Broad-based disc bulging. Facet joint and ligamentum flavum hypertrophy. Reduced AP diameter of the thecal sac and partial CSF effacement. Bilateral neuroforamina narrowing. L3-4: Broad-based disc bulging. Facet joint ligamentum flavum hypertrophy. Reduced AP diameter of the thecal sac and neuroforamina likely encroaching the neural elements. L4-5: Broad-based disc bulging. Facet joint and ligamentum flavum hypertrophy. Reduced AP diameter thecal sac and the neural foramina likely encroaching the neural elements. L5-S1: Disc bulging. Facet joint hypertrophy. Bilateral neuroforamina narrowing. No gross central spinal canal stenosis. No prevertebral compartment hematoma, mass or fluid collection. Hyperintense T2 cystic lesion in the posterior midportion left kidney. MR/MR lumbar spine wo con IMPRESSION: Multilevel lumbar spondylosis resulting in central spinal canal and to a lesser extent bilateral neuroforamina stenosis from L1-2 to L5-S1 pronounced at L3-4 L4-5 and to a lesser extent L2-3 levels. Electronically signed by: Kunal Márquez MD 07/26/2024 10:05 AM EDT
== END 2024-07-24 10:10 | disposition home or self-care (01) ==
LOC: HO.MRI 10:09
PROVIDERS: PCP Family Medicine; Visit Provider Physical Medicine & Rehabilitation
DX: M48.062 Spinal stenosis, lumbar region with neurogenic claudication (principal); M54.50 Low back pain, unspecified
CPT/HCPCS: 72148

== ENCOUNTER → 2024-07-24 10:19 | Outpatient (BNV) | payer OTHER, SELFPAY | PROVIDERS: PCP Family Medicine; Visit Provider Radiology Diagnostic Radiology | DX: M47.816 Spondylosis without myelopathy or radiculopathy, lumbar region (principal); M48.061 Spinal stenosis, lumbar region without neurogenic claudication | CPT/HCPCS: 72148 ==

== ENCOUNTER 2024-08-12 11:41 | Outpatient (AMB) | payer OTHER, SELFPAY ==
[2024-08-12 12:04] VITALS: BMI 32.6
--- NOTE | 2024-08-12 12:04 | A.OFFVIS_ITS ---
Vital Signs 08/12/24 12:04 Height 5 ft 6 in Weight 202 lb BMI 32.6 Intake Visit Reasons: MRI Review lower back Intake Note: Erin 78 yr old female presents today for her review of her lower back MRI. Allergies penicillin V Allergy (Mild, Verified 08/12/24 12:23) Itching HPI Comments Details: Here with daughter who helped with translation. They were initially complaining of knee pain. Saw [facility] ([place]) who said they think this is related to the spine. She did have injection of right knee there, with partial relief only. When she was younger in [place], she had history of disc issues and back pain. Today she says she doesn't remember. She does have memory issues per daughter. PT was done in 2023 and 2021, discharge summary reviewed, and they continued PT taught exercises at home. Lumbar MRI done. Here to review results. [facility] Medical History HTN (hypertension) Surgical History History of rotator cuff surgery History of carpal tunnel repair Family History Father Cancer Mother Dementia Sister Breast cancer in female Daughter Thyroid cancer Social History Household Members: None Housing: Apartment Alcohol intake: never Patient Tobacco Use Status: Never used Tobacco Current occupational status: disabled Current occupation: rt hand Physical Exam Vital Signs: BMI result Body Mass Index 32.6 Constitutional: Patient appears to be in no acute distress, well nourished and well developed. Patient was appropriately conversant and oriented. Good historian. MSK: No specific abnormalities found on inspection of the spine and all extremities. Lumbar ROM was full. Give-way weakness in bilateral hip flexion. 5/5 bilateral knee extension. Bilateral hip flexion 4/5 with pain. No footdrop. Neurological: Peters?s negative bilaterally. Babinski was down going bilaterally. Clonus was negative. Gait is antalgic without loss of balance. Difficulty getting up from seated p osition. Results Reviewed Results Reviewed: Ordering Physician: Ltaosha Saini Date of Service: 07/24/24 Procedure(s): MR lumbar spine wo con Accession Number(s): [id number] cc: Latosha Saini; Sunita Lezama MD~ EXAMINATION: MR LUMBAR SPINE WITHOUT CONTRAST CLINICAL INFORMATION: Spinal stenosis, lumbar region with neurogenic claudication. COMPARISON: None available. TECHNIQUE: MRI of the lumbar spine was obtained using routine sequences without contrast. FINDINGS: Last rib-bearing vertebra labeled T12. Bone marrow inhomogeneity. No bone marrow STIR signal abnormality. Multilevel marginal osteophyte formation and disc desiccation more conspicuous at L5-S1. Grade 1 retrolisthesis L5-S1. Grade 1 anterolisthesis L3-4. Conus medullaris ends at superior endplate of L1 with normal signal. T12-L1: Facet joint hypertrophy. Broad-based disc bulging. No central spinal canal or neuroforamina stenosis. L1-2: Broad-based disc bulging. Facet joint and ligamentum flavum hypertrophy. Reduced AP diameter of the thecal sac. Bilateral neuroforamina narrowing. L2-3: Broad-based disc bulging. Facet joint and ligamentum flavum hypertrophy. Reduced AP diameter of the thecal sac and partial CSF effacement. Bilateral neuroforamina narrowing. L3-4: Broad-based disc bulging. Facet joint ligamentum flavum hypertrophy. Reduced AP diameter of the thecal sac and neuroforamina likely encroaching the neural elements. L4-5: Broad-based disc bulging. Facet joint and ligamentum flavum hypertrophy. Reduced AP diameter thecal sac and the neural foramina likely encroaching the neural elements. L5-S1: Disc bulging. Facet joint hypertrophy. Bilateral neuroforamina narrowing. No gross central spinal canal stenosis. No prevertebral compartment hematoma, mass or fluid collection. Hyperintense T2 cystic lesion in the posterior midportion left kidney. MR/MR lumbar spine wo con IMPRESSION: Multilevel lumbar spondylosis resulting in central spinal canal and to a lesser extent bilateral neuroforamina stenosis from L1-2 to L5-S1 pronounced at L3-4 L4-5 and to a lesser extent L2-3 levels. Electronically signed by: Kunal Márquez MD 07/26/2024 10:05 AM EDT RP Assessment & Plan Assessment & Plan (1) Lower back pain: Code(s): M54.50 - Low back pain, unspecified Category: Medical Qualifiers: Chronicity: chronic Back pain laterality: bilateral Sciatica presence: with sciatica Sciatica laterality: bilateral sciatica Qualified Code(s): M54.42 - Lumbago with sciatica, left side; M54.41 - Lumbago with sciatica, right side; G89.29 - Other chronic pain (2) Lumbar disc herniation: Code(s): M51.26 - Other intervertebral disc displacement, lumbar region Category: Medical Plan Chronic lower back pain. We reviewed MRI images together, visualized that there were disc bulges from L2-3-L5-S1. Probably most notable on L4-5, which was more left-sided. L5-S1 was more center and slightly right-sided. Patient does not want to be referred to pain management or for injections. I do not think there is a surgical intervention that would remove her pain completely. They are not looking for surgery as well. May take diclofenac as needed, discussed side effects and precautions. Continue some form of exercise and to continue being active as much as possible. Discussed red flags watch out for. Assessment and plan discussed with patient, and patient was agreeable. All questions were answered thoroughly. Latosha Gamboa MD, YUNIOR Board Certified, [place] Board [employer] and Rehabilitation (ABPMR) Board Certified, [place] Board of Electrodiagnostic Medicine (ABEM) Coding Level of Care Code Est Pt Level 3 (14323) Diagnoses Chronic bilateral low back pain with bilateral sciatica M54.42; M54.41; G89.29 Chronicity: chronic Back pain laterality: bilateral Sciatica presence: with sciatica Sciatica laterality: bilateral sciatica Lumbar disc herniation M51.26
--- OUTSIDE RECORDS SUMMARY | 2024-08-12 14:36 | XMS_ITS ---
Author Name Joshua MCWILLIAMS, Mr. Ishmael Hairston Address [address] [place] [address] Phone [phone] [facility] Care Team Providers Care Artificial Teeth Inspector Name Role Phone Vu Lewis Unavailable [phone] Reason for Referral Not Available Allergies, adverse [...] (do not use for phone, instead use 74128-71) [facility] [place]/2022 Essential (primary) hypertensionUnspecified osteoarthritis, unspecified siteDizziness and giddinessGastro-esophageal reflux disease without esophagitisOther constipationPolyneuropathy, unspecified New patient,40-59min; chronic exacerbation, 2 stable chronic or 1 acute illness add add modifier 95 for video (do not use for phone, instead use 30492-05) [facility] [place] 04/30/2022 New patient,40-59min; chronic exacerbation, 2 stable chronic or 1 acute illness add add modifier 95 for video (do not use for phone, instead use 65032-79) [facility] [place] 04/30/2022 New patient,40-59min; chronic exacerbation, 2 stable chronic or 1 acute illness add add modifier 95 for video (do not use for phone, instead use 99935-50) [facility] [place] 04/30/2022 New patient,40-59min; chronic exacerbation, 2 stable chronic or 1 acute illness add add modifier 95 for video (do not use for phone, instead use 00379-20) [facility] [place] 04/30/2022 New patient,40-59min; chronic exacerbation, 2 stable chronic or 1 acute illness add add modifier 95 for video (do not use for phone, instead use 52918-64) [facility] [place] 04/30/2022 New patient,40-59min; chronic exacerbation, 2 stable chronic or 1 acute illness add add modifier 95 for video (do not use for phone, instead use 17251-70) [facility] [place] 04/30/2022 Vital Signs Date of Collection Vitals [...] tive Time Current Smoking Status Never smoker 2024-07-27 7 Sex Female History of Procedures Procedures Service Procedure code Service date Servicing provider Phone# New patient,40-59min; chronic exacerbation, 2 stable chronic or 1 acute illness add add modifier 95 for video (do not use for phone, instead use 66835-42) [id number] 2022-04-30 No Data Available No Data Availa [...] Documented (1125F)Continue to see PCP. Follow-up with [facility] as needed for any acute or disease [...] completed by a udio and video using ReviewZAP Tablet. Introductory visit with [facility] to establish care. Today, patient has chief [...] this visitand for caring and treatment at [facility]. Patient verbally consented to any as neededcare by [facility].
--- OUTSIDE RECORDS SUMMARY | 2024-08-12 14:36 | XMS_ITS | Clinical Summary ---
Author Organization [facility] it Address [address] [place] [address] Care Team Providers Care Channel Development Manager Name Role Phone Kamla Cano MD Primary Care Provider Unava ilable Surgical History Surgery Date Site/Laterality Comments HYSTERECTOMY PROCEDURE: HISTORICAL HYSTERECTOMY CHOLECYSTECTOMY PROCEDURE: HISTORICAL CHOLECYSTECTOMY TUBAL LIGATION PROCEDURE: HISTORICAL TUBAL LIGATION OTHER SURGICAL HISTORY 04/12/2019 Right PROCEDURE: [place] SURGICAL ARTHROSCOPY SHOULDER W/ROTATOR CUFF RPR; COMMENT: Dr Evans CARPAL TUNNEL RELEASE 01/2020 Left PROCEDURE: HISTORICAL CARPAL TUNNEL REL; COMMENT: Dr Glenn Izaguirre CARPAL TUNNEL RELEASE 10/16/2020 Right PROCEDURE: HISTORICAL CARPAL TUNNEL REL; COMMENT: Dr. Glenn Izaguirre - [facility] Medical History Medical History Date Comments MCI [...] 11/12/2024 1:50 PM EDT Appointment Radiology Department [address] [address] Health Maintenance Due Date Last Done Comments DTaP,Tdap,and Td Vaccines (1 - Tdap) 10/27/1966 Pneumococcal Vaccine: 50+ Years (1 of 2 - PCV) 10/27/1966 Zoster Vaccines (1 of 2) 10/27/1997 Cholesterol Screening (Lipid Panel) 04/05/2022 Depression Screening 04/05/2022 Falls Risk Assessment 04/05/2022 Hepatitis C Screening 04/05/2022 Social Influencers of Health Screening 04/05/2022 RSV Immunization Adult Patients (1 - 1-dose 75+ series) 10/27/2022 COVID-19 Vaccine ( season) 2023 Influenza Vaccine (Season Ended) 2024 02/26/2018 Osteoporosis Screening (Bone Density Screening) 03/29/2031 [...] age to complete this topic Meningococcal B Vaccine Aged Out No l onger eligible based on patient's age to complete this topic RSV Immunization Patients Under 20 months Aged Out No longer eligible based on patient's age to complete this topic Varicella Vaccines Aged Out No longer eligible based on patient's age to complete this topic Medical Devices Implanted Type Area Medical Chief Technician Device Identifier Shelf Expiration Date Model / Serial / Lot [place] Suture Q-Fix Od2.8 Mm - [id number] Implanted:Qty: 2 on 04/12/2019 by Wagner Evans MD Right: Shoulder [employer] 12/23/2021-2799 / / [id number] [place] Suture Q-Fix Od2.8 Mm - [id number] Implanted:Qty: 1 on 04/12/2019 by Wagner Evans MD Right: Shoulder [employer] 10/05/2021-2799 / / [id number] [place] Suture Q-Fix Od2.8 Mm - [id number] Implanted:Qty: 1 on 04/12/2019 by Wagner Evans MD Right: Shoulder [employer] 11/19/2021 / / [id number] Procedures Procedure Name Priority Date/Time Associated Diagnosis [...] (World Health Organization Fracture Risk Assessment) [facility] Department of Internal Medicine recommends using National [...] (World Health Organization Fracture Risk Assessment) [facility] Department of Internal Medicine recommendsusing National Osteoporosis [...] fracture risk by FRAX. Kamla Cano MD [facility] PROCEDURES Final Res ult from Last 3 Months or Most Recently Relevant to Health Maintenance Care Teams Channel Development Manager Relationship Specialty Start Date End Date Kamla Cano MD PCP - General Internal Medicine 07/11/17
--- OUTSIDE RECORDS SUMMARY | 2024-08-12 14:36 | XMS_ITS | Clinical Summary ---
Author Organization [facility] Address [address] [place] [address] Care Team Providers Care Director Of Patient Safety Name Role Phone Unavailable Primary Care Provider [...] this topic Medical Devices Implanted Type Area Cotton Seed Culler Device Identifier Shelf Expiration Date Model / Serial / Lot [place] Suture Q-Fix Od2.8 Mm - [id number] - [id number] Implanted:Qty: 2 on 04/12/2019 by Wagner Evans MD at [facility] Right: Shoulder [employer] 12/23/2021 25-2800 / / [id number] [place] Suture Q-Fix Od2.8 Mm - [id number] - [id number] Implanted:Qty: 1 on 04/12/2019 by aWgner Evans MD at [facility] Right: Shoulder [employer] 10/05/2021 25-2800 / / [id number] [place] Suture Q-Fix Od2.8 Mm - [id number] - [id number] Implanted:Qty: 1 on 04/12/2019 by Wagner Evans MD at [facility] Right: Shoulder [employer] 11/19/2021 25-2800 / / [id number]
== END 2024-08-12 12:30 | disposition home or self-care (01) ==
LOC: HO.HOS 11:42
PROVIDERS: PCP Family Medicine; Visit Provider Physical Medicine & Rehabilitation
DX: M54.42 Lumbago with sciatica, left side (principal); M54.41 Lumbago with sciatica, right side; M51.26 Other intervertebral disc displacement, lumbar region
CPT/HCPCS: 99213

== ENCOUNTER → 2024-08-12 11:41 | Outpatient (BNVA) | payer OTHER, SELFPAY | PROVIDERS: PCP Family Medicine; Visit Provider Physical Medicine & Rehabilitation | DX: M54.42 Lumbago with sciatica, left side (principal); M54.41 Lumbago with sciatica, right side; M51.26 Other intervertebral disc displacement, lumbar region; G89.29 Other chronic pain | CPT/HCPCS: 99212 ==

== ENCOUNTER 2024-09-23 08:04 | Outpatient (REF) | payer OTHER, SELFPAY ==
[2024-09-23 11:51] LABS: MANUAL DIFF FLAG NO
[2024-09-23 11:54] LABS: Basophils Absolute Auto 0.1 X10*3/uL (0.0-0.2); Eosinophils Absolute Auto 0.5 X10*3/uL (0.0-0.4); Eosinophils Percent Auto 4.4 % (0-4); Hematocrit 41.3 % (37.0-47.0); Hemoglobin 13.8 g/dl (12.0-16.0); Imm Gran Abs Auto 0.05 X10*3/uL (0.00-0.03); Imm Gran Pct Auto 0.5 % (0.0-0.4); Lymphocytes Absolute Auto 2.6 X10*3/uL (1.2-4.9); Lymphocytes Percent Auto 23.9 % (20-40); Mean Corpuscular HGB Conc 33.4 g/dl (31.0-35.0); Mean Corpuscular Hemoglobin 29.7 pg (27.0-33.0); Monocytes Absolute Auto 0.9 X10*3/uL (0.1-1.2); Monocytes Percent Auto 8.7 % (2-11); Neutrophils Absolute Auto 6.7 x10*3/uL (2.0-8.3); Neutrophils Percent Auto 61.5 % (45-73); Platelet Count 321 X10*3/uL (160-400); Red Blood Count 4.64 X10*6/uL (4.20-5.50); Red Cell Distribution Width 14.6 % (11.0-16.0); White Blood Count 10.9 X10*3/uL (4.8-10.8)
[2024-09-23 11:58] LABS: B Type Natriuretic Peptide < 10 pg/mL (<100)
[2024-09-23 12:10] LABS: Alanine Aminotransferase 20 U/L (0-31); Albumin Level 4.5 g/dL (3.5-5.0); Alkaline Phosphatase 86 U/L (39-117); Anion Gap 14 (12-20); Aspartate Amino Transferase 24 U/L (5-31); Bilirubin Total 0.8 mg/dL (0.0-1.0); Blood Urea Nitrogen 19 mg/dL (9-16); Calcium 9.8 mg/dL (8.4-10.2); Carbon Dioxide 28 mmol/L (22-29); Chloride 103 mmol/L (96-108); Cholesterol 248 mg/dL (<200); Estimated Glomerular Filt Rate > 60; Glucose Random 94 mg/dL (60-115); HDL Cholesterol 72 mg/dL (>40); LDL Cholesterol Calculated 144 mg/dL (<100); Potassium 4.4 mmol/L (3.3-5.1); Sodium 141 mmol/L (135-145); Total Protein 7.8 g/dL (6.5-8.0); Triglycerides 162 mg/dL (<150)
[2024-09-23 12:14] LABS: Appearance Urine Clear; Color Urine Yellow; Glucose Urine UA Negative (Negative); Leukocyte Esterase Urine Negative (Negative); Nitrite Urine Negative (Negative); PH 6.5 (5.0-9.0); Urine Blood Negative (Negative); Urine Ketones Negative (Negative); Urine Protein Negative (Neg-Trace)
[2024-09-23 12:28] LABS: TSH reflex Free T4 1.65 uIU/mL (0.32-4.0)
[2024-09-23 12:43] LABS: Folate 10.8 ng/mL (> or = 4.0); Vitamin B12 679 pg/mL (200-900)
[2024-09-23 12:46] LABS: Bacteria Urine 2+ (None Seen); RBC Urine 0-2 /HPF (0-2); WBC Urine 0-5 /HPF (0-5)
== END 2024-09-23 08:05 | disposition home or self-care (01) ==
LOC: HO.HHCL 08:04
PROVIDERS: Visit Provider Family Medicine
DX: R60.0 Localized edema (principal)
CPT/HCPCS: 36415; 80053; 80061; 81001; 82607; 82746; 83880; 84443; 85025

== ENCOUNTER → 2024-11-12 10:21 | Outpatient (REF) | payer OTHER, SELFPAY ==
--- NOTE | 2024-11-12 10:37 | CA_ITS ---
Transthoracic Echocardiogram Patient (Last, First, Middle): Erin Silvestre, Gender: Female Date of : 1945 Age: 79 Procedure Date: 11/12/2024 Procedure Type: Transthoracic Echocardiogram Location: OP Height: 162.56 cm Weight: 93.44 kg BSA: 1.98 m2 Heart Rate: bpm BP: 130 / 70 mmHg Deputy Jailer: TO Referring MD: Sunita Lezama MD Symptoms: BI LAT LOWER EXT EDEMA R60.0 Study Quality: Technically Difficult/Contrast ECG Rhythm: Sinus Conclusions: - The left ventricular systolic function is normal. The calculated ejection fraction is 65% by biplane method. - No obvious valvular pathology seen on this study. Findings Procedure Information Contrast agent, definity, is being given per protocol without apparent complications. Left Ventricle Normal left ventricular cavity size. There is normal left ventricular wall thickness. The left ventricular systolic function is normal. The calculated ejection fraction is 65% by biplane method. There is no evidence of regional wall motion abnormalities. Diastolic function is normal for age. Right Ventricle Normal right ventricular cavity size and systolic function. Atria Both atria are normal in size. Aortic Valve There is a normal trileaflet aortic valve. There is no aortic valve stenosis. There is trace (trivial) aortic valve regurgitation. Mitral Valve The mitral valve appears normal. There is no mitral valve regurgitation. There is no mitral valve stenosis. Pulmonic Valve The pulmonic valve is likely normal. Tricuspid Valve There is mild tricuspid valve regurgitation. There is no evidence of pulmonary hypertension. Great Vessels The asc aorta is normal in size. Venous The inferior vena cava is normal in size and collapses greater than 50% with inspiration. Pericardium/Pleural There is no evidence of pericardial effusion. Prior Study Comparison No significant change compared to prior study dated: 12/17/2021. Recommendations, Care & Conclusions No obvious valvular pathology seen on this study. Measurements 2D Linear Measurements IVSd: 0.91 0.6-0.9/0.6-1.0 cm LVIDd: 5.24 3.9-5.3/4.2-5.9 cm LVIDd Index: 2.65 2.4-3.2/2.2-3.1 cm/m2 LVIDs: 3.38 2.0-3.6 cm LVPWd: 0.79 0.7-1.1 cm LV Mass: 198.59 67-162/88-224 g LV Mass Index: 100.30 43-95/49-115 g/m2 LVOT Diam: 2.20 3.0+(-)1.3 cm 2D Systolic Function EF 4C: 64.80 >55% EF 2C: 62.90 >55% EF BiP: 64.80 >55% Mitral Valve MV Pk E: 0.45 MV PK A: 0.73 MV Decel Time: 212.00 E/A: 0.60 E'Lateral: 4.35 E'Medial: 3.59 E/E' Med: 12.60 E/E' Lat: 10.40 PHT: 62.00 MVA PHT: 3.55 Decel [place]: 2.14 Aortic Valve AoV Pk Luis A: 1.15 AoV Mn Luis A: 0.74 AoV VTI: 0.25 AoV Pk Grad: 5.00 Aov Mn Grad: 3.00 GRIS Cont.VTI: 3.30 LVOT LVOT Pk Luis A: 0.95 LVOT Mn Luis A: 0.60 LVOT VTI: 0.21 LVOT Pk Grad: 4.00 LVOT Mn Grad: 2.00 LVOT Diam: 2.20 LVOT Area: 3.80 Diastolic Function MV Pk E: 0.45 MV Pk A: 0.73 E/A: 0.60 E'Medial: 3.59 E/E' Med: 12.60 E' Laterial: 4.35 E/E' Lat: 10.40 Right Ventricle TAPSE (mm): 19.60 TVS' Luis A: 13.60 Tricuspid Valve TR Pk Luis A: 2.27 TR Pk Grad: 21.00 RA Press: 3.00 RVSP: 24.00 Great Vessels Aorta Sinus of Valsalva: 3.75 2.0-3.5 cm Ao Asc: 3.60 2.1-3.4 cm Ao Arch: 3.10 Updated in Other Vendor System with Status of Final Thien Gilliam MD electronically signed on 11/13/2024 12:02:39 PM with status of Final
--- OUTSIDE RECORDS SUMMARY | 2024-11-12 10:41 | XMS_ITS | Encounter Summary ---
Author Organization [employer] Address [address] [place] [address] Care Team Providers Care Machine Designer Name Role Phone Sunita Lezama MD Primary Care Provider [phone] Encounter Details Date Type Department Care Team ([facility] st Contact Info) Description 06/11/2023 [facility] [address] [place] [address] Sunita Lezama MD [address] [place], [place] [id number] Social History Tobacco Use Types Packs/Day Years [...] documented as of this encounter Care Teams Machine Designer Relationship Specialty Start Date End Date Sunita Lezama MD [address] [place] [address] PCP - General Family Medicine 04/02/21 documented as of this encounter
--- OUTSIDE RECORDS SUMMARY | 2024-11-12 10:41 | XMS_ITS ---
Author Name [facility] Organization Unknown History of Medication Use Medication Directions Dispensed Refills Start Date End Date Stat us lidocaine (PF) 100 mg/5 mL (2 %) injection syringe Take 4 mL by injection route. 06/24/2024 active Marcaine (PF) 0.5 % (5 mg/mL) injection solution Take 4 mL by injection route. 06/24/2024 active triamcinolone acetonide 40 mg/mL suspension for injection Take 40 mg by injection route. 06/24/2024 active meclizine 12.5 mg tablet TOME GERALDINE TABLETA CADA OCHO HORAS CUANDO SEA NECESARIO FOR DIZZINESS active omeprazole 20 mg capsule,delayed release TOME GERALDINE C PSULA DOS VECES AL D A active prednisolone acetate 1 % eye drops,suspension PONGA GERALDINE GOTA EN LOS DOS OJOS DOS VECES AL D A active zinc gluconate 50 mg tablet TOME GERALDINE TABLETA TODOS LOS D EN LA MA OSCAR active Allergies Allergen Reaction Severity Comment Documented Date Source Statu s PENICILLINS [facility] Problems Problem Status Onset Date Problem Type Date of Resoluti on Source Primary gonarthrosis, bilateral active 2024-06-24 ProblemAct [facility] Carpal tunnel syndrome of left wrist active 2024-02-05 ProblemAct [facility] Carpal tunnel syndrome of right wrist active 2024-05-27 ProblemAct [facility] Low back pain active 2024-02-19 ProblemAct [facility] Encounters Encounter Type Encounter Reason Primary Diagnosis Location Date Ambulatory [facility] 06/24/2024 Ambulatory [facility] [place] 06/07/2024 Ambulatory [facility] [place] 03/09/2024 Ambulatory [facility] [place] 02/19/2024 Ambulatory [facility] [place] 02/05/2024 Ambulatory [facility] [place] 01/29/2024 Ambulatory [facility] [place] 01/29/2024 Ambulatory [facility] [place] 01/29/2024 Ambulatory [facility] [place] 01/27/2024 Ambulatory [facility] [place] 08/13/2022
--- OUTSIDE RECORDS SUMMARY | 2024-11-12 10:41 | XMS_ITS | Data Portability ---
Author Organization [place] [facility] Address [address] [place] [address] Assessment Encounter Date Assessment Date Assessment LastModified by Organization Details LastModified Time 02/19/2024 02/19/2024 78-year-old fema le with left [...] Rome MS, LADAN in indirect conjunction with documenting/supervisin g provider Kevin Nj MD. He agrees with [...] for continued evaluation and management by a audit specialist. Follow-up with this orthopedic office is as needed. This patient was seen and evaluated by Aby Rome MS, PA-C in indirect conjunction with documenting/supervisin g provider Kevin Nj MD. He agrees with [...] on having her get this done at [facility], there seem to be some confusion [...] cortisone injection, discuss any input from the audit specialist, and possibly do a cortisone injection to the left knee. This patient was seen and evaluated by Aby Rome, MS, PA-C in indirect conjunction with documenting/supervisin g provider Kevin Nj MD. He agrees with history, physical examination, tests/diagnostic imaging, and treatment plan. This document was generated using voice recognition software. As a result, there may be unintended spelling, grammatical and/or textual errors. Not available 06/24/2024 10:01:43 08/19/2024 08/19/2024 78-year-old fema le with osteoarthritis of bilateral knees. Her right knee pain is improved following a recent cortisone injection. She is inclined to coexist with any persistent symptoms as she finds them to be manageable. We have talked about the potential role for repeat cortisone injections, physical therapy, viscosupplementation and/or joint arthroplasty. At this juncture, she wishes to follow-up as needed. This patient was seen and evaluated by Aby Rome MS, PA-C in indirect conjunction with documenting/supervisin g provider Kevin Nj MD. He agrees with history, physical examination, tests/diagnostic imaging, and treatment plan. This document was generated using voice recognition software. As a result, there may be unintended spelling, grammatical and/or textual errors. Not available 08/19/2024 11:26:13 Plan of Treatment Reminders Order Date Submit Date Provider Last Modified By Organization Details Last Modified Time Details Appointments ESTABLISH ED/NEW PROBLEM 2024 10:00A M ABY ROME PA-C Not available Not available Not available Lab None recorded. Referral None recorded. Procedures None recorded. Surgeries None recorded. Imaging XR, knee, 4 or more view 2023 024 [id number] 5 [facility], [address], [address], [place], [address], 02/19/2024 10:06:39 XR, knee, 4 or more view 2023 024 [email or web address] 5 [facility], [address], [address], [place], [address], 02/19/2024 10:06:39 Medication Orders Marcaine (PF) 0.5 % (5 mg/mL) injection solution [address]/[facility], [address] [place], [address], 06/24/2024 11:42:59 lidocaine (PF) 100 mg/5 mL (2 %) injection syringe [address], [address] [place], [address], 06/24/2024 11:42:59 triamcino lone acetonide 40 mg/mL suspensio n for injection [address], [address] [place], [address], 06/24/2024 11:42:59 prednison e 10 mg tablet 2023 024 [facility]/Pharmacy #2071, [address] [place], [address], 02/19/2024 10:07:01 Patient TargetsNo targets recorded. Patient Instructions Encounter Date Encounter Id Patient Instructions Last Modified By Organization Details Last Modified Time 02/19/2024 [id number] physical therapy * - Diagnosis: Low back pain with bilateral lower extremity radiculopathy including knee pain Evaluate and treat as indicated to reduce pain and to improve strength, mobility, stability, range of motion, and function. Please teach a home exercise plan and incorporate PT into patient's exercise routine. 2-3 sessions weekly for 6-8 weeks. [email or web address] Not available 02/26/2024 08:34:23 prednisone dosag e instructions Not available 02/19/2024 10:06:59 8 view X-ray qi dy obtained during today's office encounter show evidence of mild bilateral knee osteoarthritis. There is joint space narrowing, subchondral sclerosis and marginal osteophytosis. Kellgren-Ender grade 1. No evidence of acute fracture or osteolytic findings. Not available 02/19/2024 10:06:08 05/27/2024 [id number] 3 views of the l eft hand [...] Not available 05/27/2024 12:46:32 Reason for Referral None Reported. Results Created Date Observation Date Name Description Value Unit Range Abnormal Flag Note LastModifiedBy Organization Detail LastModifiedTime 02/10/20 24 physi cherelle thera py* No observ ation record ed. snarus Not Available 2024 11:57:32 Result Notes None recorded. Problems Name Problem SNOMED Code Status Onset Date Resolution Date Notes Provider Name and Address Organization Details Recorded Time Carpal tunnel syndrome of left wrist 37532250979303 2 Active 2023 Kelly mccann MD [address], [place], [address], [place] [facility] 4 10:53:51 Low back pain 100562473 Active 2023 ABY ROME PA-C [address], [place], [address], [place] [facility] 4 10:06:17 Carpal tunnel syndrome of right wrist 71126441580501 8 Active 2024 Kelly mccann MD [address], [place], [address], [place] [facility] 5 12:49:02 Primary gonarthros is, bilateral 684910995 Active 2024 ABY ROME PA-C [address], [place], [address], [place] [facility] 10:00:32 Problem Notes None recorded. Procedures Surgical History Date Name Laterality Status Provider Name and Address Organization Details Recorded Time 5 MJG Knee injection w/US completed ABY ROME PA-C [address], [place], [address], [place] [facility] 06/24/2024 10:00:16 Carpal tunnel surgery completed Dar Cramer [place] [facility] 08/02/2022 09:26:33 Shoulder Surgery completed Dar Cramer [facility] 08/02/2022 09:26:51 Imaging Results None recorded. Procedure Notes None recorded. Medical Equipment None Reported. Allergies Allergen ID Allergen Name Allergen Category Reaction Reaction Severity Criticality Documentation Date Start Date Code Code System Note Provider Name and Address Organization Details Recorded Time 1792 Product containin g penicilli n (product) medicatio n Not available Not available Not available 08/02/2022 58378 8001 SNOMED Dar Cramer [facility], [facility] 3 09:25:34 Medications Name Sig Start Date Stop [...] e acetate 1 % eye drops,suspe nsion INSTILL 1 DROP IN BOTH EYES IN THE MORNING active Not Available Not Available No t [...] Updated DateTime 04/29/2024 162.56 cm 31.8 kg/m2 [address]2671.[address] - [facility] 04/29/2024 10:42:02 Date Recorded Body height Provider Name an d Address Organization Details Last Updated DateTime 05/27/2024 162.56 [address] [place] - [facility] 05/27/2024 10:50:45 Date Recorded Body height Provider Name an d Address Organization Details Last Updated DateTime 08/19/[address] - [facility] 08/19/2024 11:20:00 Social History None recorded. Functional Status Question Answer Note LastModified by Organizat ion Details LastModified Time Do you use any illicit or recreational drugs? No [email or web address] Information not available 08/02/2022 Do you or have you ever used any other forms of tobacco or nicotine? No [email or web address] Information not available 08/02/2022 What is your level of alcohol consumption? None [email or web address] Information not available 08/02/2022 Mental Status None recorded. Family History Relationship Description Onset Age of this Age Resolved Age Notes LastModified by Organization Details LastModified Time Brother Family history of malignant neoplasm [email or web address] Not available 02/04 09:40:47 Brother Hyperlipidem ia [email or web address] Not available 02/04 09:40:47 Father Family history of malignant neoplasm [email or web address] Not available 02/04 09:40:47 Father Heart disease [email or web address] Not available 10/2022 09:27:38 Father Hyperlipidem ia [email or web address] Not available 02/04 09:40:47 Mother Family history of malignant neoplasm [email or web address] Not available 02/04 09:40:47 Mother Heart disease [email or web address] Not available 10/2022 09:27:38 Mother Hyperlipidem ia [...] Code Diagnosis ICD10 Code Diagnosis Note [id number] LADAN SANZ [facility] [address] [facility] [address] [place] [address] 08/02/2022 08:39:42 08/02/2022 09:26:09 Low back pain 226056359 M54.50 Chronic low back pain 27 4959618 M54.50 [id number] MD EDGAR Jensen [facility] [address] [place] [address] 02/05/2024 09:40:09 02/05/2024 10:55:59 Pain of left wrist 7296180733 87528 M25.532 Carpal julio jasmina syndrome of left wrist 6912469326 31682 G56.02 [id number] LADAN CAMARILLOCO [facility] [address] [place] [address] 02/19/2024 09:34:37 02/19/2024 10:06:39 Pain of right knee region 0774012319 67903 M25.561 Pain of le ft knee region 7449131860 68082 M25.562 Low back pain 802786954 M54.50 [id number] LADAN CAMARILLO [facility] [address] [address] 04/29/2024 10:04:46 04/29/2024 10:58:45 Low back pain 196840197 M54.50 [id number] MD EDGAR Jensen [facility] [address] [address] 05/27/2024 10:12:05 05/27/2024 11:35:00 Carpal tunnel syndrome of left wrist 1930043437 77024 G56.02 Carpal julio jasmina syndrome of right wrist 6089515300 43028 G56.01 [id number] LADAN [facility]ARILLO [facility] 299 [facility] [address] [facility] [address] 06/24/2024 09:27:49 06/24/2024 10:20:04 Primary gonarthrosis, bilateral 069879446 M17.0 Osteoarthr itis of right knee joint 7587392528 00966 M17.11 [id number] LADAN CAMARILLO [facility] 299 [facility] [address] [place] [address] 08/19/2024 11:07:12 08/19/2024 11:24:52 Primary gonarthrosis, bilateral 168446169 M17.0 Health Concerns Section Related Observation LastModified by Organization Detai ls LastModified Time None Recorded Concern Status LastModified by Organization Details LastModified Time None Recorded Advance Directives Directive None Recorded Payers Insurance Date Sequence Insurance Name Policy Number Policy Mueller Covered Member ID Mueller Member ID Guarantor Name 11/02/2024 2 [place] [facility] Erin Porter [id number] Erin Porter 01/27/2024 1 [facility] Erin Porter [id number] Erin Porter 08/16/[address] [facility] - DOS ON OR AFTER 2022 - MEDICARE ADVANTAGE [place] (MEDICARE REPLACEMENT/AD VANTAGE - PPO) Erin Porter [id number] Erin Porter Notes Date Note Type Note Provider Name and Address Organization Details Recorded Time 02/19/2024 text/html 78-year-old florence lowery presents with [...] of either knee. ABY ROME PA-C [address] [address], [place], [address], [facility] - [facility] 02/19/2024 10:08:10 04/29/2024 text/html 78-year-old florence lowery presents for recheck of left leg pain. She reports that she used the prednisone that I prescribed her and got significant reduction of the severity of her pain but the effects wore off soon after completion of the prednisone taper. We did schedule a visit for her to see one of our audit specialist but she was subsequently informed that her insurance does not cover emn-df-hypry services. Since that time, her daughter has made arrangements for spinal evaluation at practice not otherwise specified in [place]. She is scheduled to be seen on May 06. Otherwise, there is been no substantial change in character quality or location of her symptoms. ABY ROME PA-C [address] [address], [place], [address], [facility] 04/29/2024 11:01:00 05/27/2024 text/html She presents for follow-up of bilateral hand pain and numbness and tingling being worked up for recurrent carpal tunnel syndrome. She is Amharic-speaking only and is accompanied by her daughter [...] fingers as well. Kelly Mclean MD [address] [address], [place], [address], [place] [facility] 05/27/2024 12:52:11 06/24/2024 text/html 78-year-old florence lowery presents with persistent right greater than left-sided [...] injury, accident or trauma. ABY ROME PA-C [address] [facility],[address], [address], [facility] - [facility] 06/24/2024 10:14:45 08/19/2024 text/html 78-year-old florence lowery presents for recheck of knee pain. She reports that the cortisone injection to the right knee was effective at reducing the severity of her pain. She is still having some discomfort but at this point finds it manageable. She is not inclined to have an injection into the left knee. In fact, she thinks that most of the left leg pain is probably coming from a chronic issue with her low back. ABY ROME PA-C [address] [facility],[address] [address], [place], [address], [place] [facility] 08/19/2024 11:26:42 OBGyn Episode No OBEpisode recorded.
--- OUTSIDE RECORDS SUMMARY | 2024-11-12 10:41 | XMS_ITS | Clinical Summary ---
Author Organization [facility] Address [address] [place] [address] Care Team Providers Care Senior Infrastructure Architect Name Role Phone Unavailable Primary Care Provider [...] 59 04/12/2019 3:15 PM EST Temperature 36 C (96.8 F) 04/12/2019 1:52 PM EST Respiratory Rate 15 [...] 1-dose 75+ series) 10/27/2022 Influenza Vaccine (#1) 2024 2, 12/27/2020, 02/26/2018 Shingrix-Zoster Vaccine Completed 08/16/19 22, 06/20/2021 Hepatitis B Vaccines Aged Out No long er eligible based on patient's age to complete this topic RSV Ped < 20 months Aged Out No longe r eligible based on patient's age to complete this topic Medical Devices Implanted Type Area Internet Architect Device Identifier Shelf Expiration Date Model / Serial / Lot Robinson Suture Q-Fix Od2.8 Mm - [id number] - [id number] Implanted:Qty: 2 on 04/12/2019 by Wagner Evans MD at [facility] Right: Shoulder [employer] 12/23/2021 25-2800 / / [id number] Robinson Suture Q-Fix Od2.8 Mm - [id number] - [id number] Implanted:Qty: 1 on 04/12/2019 by Wagner Evans MD at [facility] and [facility] Right: Shoulder [employer] 10/05/2021 25-2800 / / [id number] Robinson Suture Q-Fix Od2.8 Mm - [id number] - [id number] Implanted:Qty: 1 on 04/12/2019 by Wagner Evans MD at [facility] and [facility] Right: Shoulder [employer] 11/19/2021 25-2800 / / [id number]
--- OUTSIDE RECORDS SUMMARY | 2024-11-12 10:41 | XMS_ITS | Patient Health Record ---
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
--- OUTSIDE RECORDS SUMMARY | 2024-11-12 10:41 | XMS_ITS | Clinical Summary ---
Author Organization [address] Address [address] [place] [address] Phone Care Team Providers Care Senior Policy Associate Name Role Phone Kamla Cano MD Primary Care Provider Unava ilable Surgical History Surgery Date Site/Laterality Comments HYSTERECTOMY PROCEDURE: HISTORICAL HYSTERECTOMY CHOLECYSTECTOMY PROCEDURE: HISTORICAL CHOLECYSTECTOMY TUBAL LIGATION PROCEDURE: HISTORICAL TUBAL LIGATION OTHER SURGICAL HISTORY 04/12/2019 Right PROCEDURE: [place] SURGICAL ARTHROSCOPY SHOULDER W/ROTATOR CUFF RPR; COMMENT: Dr Evans CARPAL TUNNEL RELEASE 01/2020 Left PROCEDURE: HISTORICAL CARPAL TUNNEL REL; COMMENT: Dr Glenn Izaguirre CARPAL TUNNEL RELEASE 10/16/2020 Right PROCEDURE: HISTORICAL CARPAL TUNNEL REL; COMMENT: Dr. Glenn Izaguirre - [facility] Medical History Medical History Date Comments MCI [...] 11/12/2024 1:50 PM EDT Appointment Radiology Department [address] [address] Health Maintenance Due Date Last Done Comments DTaP,Tdap,and Td Vaccines (1 - Tdap) 10/27/1966 Pneumococcal Vaccine: 50+ Years (1 of 2 - PCV) 10/27/1966 Zoster Vaccines (1 of 2) 10/27/1997 Cholesterol Screening (Lipid Panel) 04/05/2022 Falls Risk Assessment 04/05/2022 Hepatitis C Screening 04/05/2022 Medicare Annual Wellness Visit 04/05/2022 Social Influencers of Health Screening 04/05/2022 RSV Immunization Adult Patients (1 - 1-dose 75+ series) 10/27/2022 COVID-19 Vaccine ( season) 2023 Depression Screening 04/28/2024 Influenza Vaccine (#1) 2024 02/26/2018 Osteoporosis Screening (Bone Density Screening) 03/29/2031 03/29/2021, 09/05/2017 Breast Cancer Screening Discontinued 11/11/19, 11/11/2023, 05/23/2022, Additional history exists HIB Vaccines [...] this topic Medical Devices Implanted Type Area Mud Temperer Device Identifier Shelf Expiration Date Model / Serial / Lot Dorado Suture Q-Fix Od2.8 Mm - [id number] Implanted:Qty: 2 on 04/12/2019 by Wagner Evans MD Right: Shoulder [employer] 12/23/2021 25-2800 / / [id number] Dorado Suture Q-Fix Od2.8 Mm - [id number] Implanted:Qty: 1 on 04/12/2019 by Wagner Evans MD Right: Shoulder [employer] 10/05/2021 25-2800 / / [id number] Dorado Suture Q-Fix Od2.8 Mm - [id number] Implanted:Qty: 1 on 04/12/2019 by Wagner Evans MD Right: Shoulder [employer] 11/19/2021 25-2800 / / [id number] Procedures Procedure Name Priority Date/Time Associated Diagnosis [...] are composed of fatty and fibroglandular tissue. No suspicious mass, architectural distortion or suspicious calcifications are identified. IMPRESSION: : No mammographic evidence of malignancy. BIRADS 1-Negative; N. 5 year breast cancer risk assessment N/A Lifetime breast cancer risk assessment N/A Breast cancer risk category Breast cancer risk not assessed Procedure Note Gpoal Gan MD - 02/11/2024 This is a [...] Narrative 03/29/2021 6:02 PM EST BONE DENSITY Lumbar Spine T-score is -1.6 [...] compared to most recent bone density examination Confidence level is +/-95%. Impression: Based on the World Health Organization criteria, Erin Porter should be classified as having osteopenia. This patient has a 4.3% risk of major osteoporotic fracture and a 0.6% risk of hip fracture over the next 10 years. (World Health Organization Fracture Risk Assessment) [facility] Department of Internal Medicine recommends using National [...] (World Health Organization Fracture Risk Assessment) [facility] Department of Internal Medicine recommendsusing National Osteoporosis [...] fracture risk by FRAX. Kamla Cano MD [facility] DXA PROCEDURES Final Res ult from Last 3 Months or Most Recently Relevant to Health Maintenance Insurance [facility] MEDICARE Member Subscriber Plan / Payer (Ef fective 2022-Present) Name:Erin Silvestre Relation to Subscriber:Self Name:Erin Silvestre Payer ID:[id number] Group ID:[id number] Type:Not on file Address: [address] [place] [address] Care Teams Senior Policy Associate Relationship Specialty Start Date End Date Kamla Cano MD PCP - General Internal Medicine 07/11/17
--- OUTSIDE RECORDS SUMMARY | 2024-11-12 10:41 | XMS_ITS ---
Author Name Joshua MCWILLIAMS, Mr. Ishmael Hairston Address [address] [place] [address] Phone [phone] [facility] Care Team Providers Care Advertising Representative Name Role Phone Vu Lewis Unavailable [phone] Reason for Referral Not Available Allergies, adverse [...] List Problem Status Onset Date Resolved Date Synopsis Hypertension Active 2022-04-29 N/A Monitors BP at home only when not feeling wellPer outside care 141/64 (03/2022)RX: CoregManagement as per PMDRecommend low salt diet and monitoring BPs at home daily and log readings Vertigo Active 2022-04-30 N/A Stable on Mecl izineRX: Meclizine PRNManagement as per PMD - Follows up every 3 months Osteoarthritis Active 2022-04-30 N/A Endorses c hronic joint pain to both hands and kneesRX: Tylenol PRN, DiclofenacManagement as per PMD - Follows up every 3 monthsUses a cane to ambulate GERD (gastroesophageal reflux disease) Active 2022-04-30 N/A Stable on curren t regimenRX: OmeprazoleManagement as per PMD - Follows up every 3 monthsAvoid fatty foods, spicy foods, greasy foods, caffeine Chronic constipation Active 2022-04-30 N/A Curr ent regimen effectiveRX: Miralax dailyManagement as per PMD - Follows up with PMD every 3 monthsRecommend adding high fiber foods to diet, drink plenty of fluids, regular exercise/activity Neuropathy Active 2022-04-30 N/A Endorses nerve pain and numbness to both handsNo active treatmentFollows up with PMD every 3 months Encounters Encounters Type Facility Date of Service Diagnosis/Co mplaint New patient,40-59min; chronic exacerbation, 2 stable chronic or 1 acute illness add add modifier 95 for video (do not use for phone, instead use 96611-35) [facility] Essential (primary) hypertensionUnspecified osteoarthritis, unspecified siteDizziness and giddinessGastro-esophageal reflux disease without esophagitisOther constipationPolyneuropathy, unspecified New patient,40-59min; chronic exacerbation, 2 stable chronic or 1 acute illness add add modifier 95 for video (do not use for phone, instead use 23960-30) [facility] New patient,40-59min; chronic exacerbation, 2 stable chronic or 1 acute illness add add modifier 95 for video (do not use for phone, instead use 02079-61) [facility] New patient,40-59min; chronic exacerbation, 2 stable chronic or 1 acute illness add add modifier 95 for video (do not use for phone, instead use 06125-16) [facility] New patient,40-59min; chronic exacerbation, 2 stable chronic or 1 acute illness add add modifier 95 for video (do not use for phone, instead use 59516-96) [facility] New patient,40-59min; chronic exacerbation, 2 stable chronic or 1 acute illness add add modifier 95 for video (do not use for phone, instead use 33982-06) [facility] New patient,40-59min; chronic exacerbation, 2 stable chronic or 1 acute illness add add modifier 95 for video (do not use for phone, instead use 90582-80) [facility]20[place] Vital Signs Date of Collection Vitals [...] tive Time Current Smoking Status Never smoker 2024-10-26 10 Sex Female History of Procedures Procedures Service Procedure code Service date Servicing provider Phone# New patient,40-59min; chronic exacerbation, 2 stable chronic or 1 acute illness add add modifier 95 for video (do not use for phone, instead use 82174-82) 48040 2022-04-30 No Data Available No Data Availa [...] Documented (1125F)Continue to see PCP. Follow-up with Nnamdi as needed for any acute or disease [...] Concerns Date Concern 2022-04-30 Visit completed by mary evasn and video using [employer] Tablet. Introductory visit with [facility] to establish care. Today, patient has chief complaint of: establishing care.Reviewed Allergies, Medications, Active Medical conditions, past medical/surgical history, Social history. 2022-04-30 Most recent hospital stay(s) or ER visit(s) and precipitating factors: Reports none 2022-04-30 Advance care plannin dayan discussion. Conversation today with: <Confirms advanced care directive in place. Granddaughter is healthcare proxy: Nanci Brasher> 2022-04-30 Open HEDIS Measure r zariaw: 2022-04-30 Patient verbally con sented to the release of healthcare information for the purposes of this visitand for caring and treatment at [facility]. Patient verbally consented to any as neededcare by [facility].
== END ==
LOC: HO.CARD 10:21
PROVIDERS: PCP Family Medicine; Visit Provider Family Medicine
DX: R60.0 Localized edema (principal)
CPT/HCPCS: 93306; Q9957

== ENCOUNTER → 2024-11-12 10:37 | Outpatient (BNV) | payer OTHER, SELFPAY | PROVIDERS: PCP Family Medicine; Visit Provider Internal Medicine | DX: I36.1 Nonrheumatic tricuspid (valve) insufficiency (principal); R22.43 Localized swelling, mass and lump, lower limb, bilateral | CPT/HCPCS: 93306 ==

== ENCOUNTER 2024-11-16 12:29 | Outpatient (AMB) | payer OTHER, SELFPAY ==
[2024-11-16 12:40] VITALS: BP 116/60; PULSE 64; TEMP 36.6; O2SAT 97
--- NOTE | 2024-11-16 12:40 | AM.OFFWIN_ITS ---
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 Intake Note: pt here for LT knee pain after knee gave out yesterday and this morning- denies falling Patient Tobacco Use Status: Never used Tobacco Allergies penicillin V Allergy (Mild, Verified 11/16/24 13:03) Itching Medication List - Last Reconciled 11/16/24 by Latanya Burrows, HOT SHOT-BC amlodipine 5 mg PO DAILY atorvastatin 40 mg PO DAILY calcium carbonate-vitamin D3 500 mg-10 mcg (400 unit) 1 tab PO DAILY carvedilol 3.125 mg PO BID clotrimazole 1% appl topical diclofenac sodium 75 mg PO Q12H ketotifen fumarate 0.025%(0.035%) 1 drp ophthalmic (eye) BID meclizine 12.5 mg PO Q8H PRN omeprazole 20 mg PO DAILY PRN polyethylene glycol 3350 17 grams PO DAILY Do you need a note to return to daycare/school/sports/work: No HPI HPI Comments History of Present Illness Details History of Present Illness - The patient is a 79 year old female pr esenting with knee pain. - Onset of pain was after an incident of almost falling yesterday causing the knee to twist. - The location of the pain is in the do k of the knee. - Pain produces a sensation of weakness - Knee feels weak; hard time bearing wt d/t pain - Ice was applied with no relief noted a nd Diclofenac was taken w/o relief - No changes in redness or swelling obse rved Review of Systems - Musculoskeletal: Reports knee weakness , pain, and no redness or swelling. Denies needing a wheelchair for mobility. Physical Exam Sitting in wheelchair Accompanied by Dtr Michael leg neurovasc intact Examine was difficult as she was yelling and screaming with even the lightest touch. Knee is intact, no erythema, no warmth, no edema. Reports pain posterior knee. I am able to move the knee through passive ROM in all directions. She is able to stand w/ asst and took a few antalgic steps w/ support. Plan: Xray of the L knee - final report pending; review of film by myself did not show any acute pathology Assessment and Plan 1. Knee pain, L - Ordered x-ray to evaluate structural i ssues. Results pending and CC to PCP - Knee support provided and applied at t piter of visit - Supportive care - Made aware will need to fu with PCP fo r Ortho referral. Consent Patient was informed and verbally consented to the use of an ambient scribe for clinic note documentation during this visit. Total time spent caring for the patient today was 30 minutes. This includes time spent before the visit reviewing the chart, time spent during the visit, and time spent after the visit on documentation, reviewing laboratory results, diagnostic imaging, medications, performing a medically necessary evaluation, counseling on diagnoses, care coordination, ordering appropriate tests, ordering appropriate medications, review of tests performed by other providers, reporting test results with the patient, communication with other healthcare providers. [facility] Medical History HTN (hypertension) Surgical History History of rotator cuff surgery History of carpal tunnel repair Family History Father Cancer Mother Dementia Sister Breast cancer in female Daughter Thyroid cancer Social History Household Members: None Housing: Apartment Alcohol intake: never Patient Tobacco Use Status: Never used Tobacco Current occupational status: disabled Current occupation: rt hand Physical Exam Vital Signs: Last Vital Signs Temp 97.9 F 11/16/24 12:40 Pulse 64 11/16/24 12:40 BP 116/60 11/16/24 12:40 Pulse Ox 97 11/16/24 12:40 Oxygen Delivery Method Room Air 11/16/24 12:40 Assessment & Plan Assessment & Plan (1) Left knee pain: Code(s): M25.562 - Pain in left knee Qualifiers: Chronicity: acute Qualified Code(s): M25.562 - Pain in left knee Plan . Orders: Orders XR knee LT 4V Today M25.562 - Pain in left knee Coding Level of Care Code Est Pt Level 4 (67141) Diagnoses Acute pain of left knee M25.562 Chronicity: acute
--- OUTSIDE RECORDS SUMMARY | 2024-11-16 13:28 | XMS_ITS | Encounter Summary ---
Author Organization [facility] Address [address] [place] [address] Care Team Providers Care Cruise Guide Name Role Phone Kamla Cano MD Primary Care Provider Charles Haro, Pcp Primary Care Provider Helen peterson Encounter Details Date Type Department Care Team Description 12/22/2019 Precinct Commanding Officer Report Medical Records [address] [place] [id number] [place] [address], [facility] [place] Social History Tobacco Use [...] on filedocumented in this encounter Care Teams Cruise Guide Relationship Specialty Start Date End Date Kamla Cano MD PCP - General Internal Medicine 07/11/17 12/16/22 [facility], Pcp PCP - General Internal Medicine 12/17/22 documented as of this encounter
--- OUTSIDE RECORDS SUMMARY | 2024-11-16 13:28 | XMS_ITS | Clinical Summary ---
Author Organization [facility] Address [address] [place] [address] Care Team Providers Care Fisher Trawl Net Name Role Phone Unavailable Primary Care Provider [...] this topic Medical Devices Implanted Type Area Apprenticeship Representative Device Identifier Shelf Expiration Date Model / Serial / Lot [employer] Suture Q-Fix Od2.8 Mm - [id number] - [id number] Implanted:Qty: 2 on 04/12/2019 by Wagner Evans MD at [facility] Right: Shoulder [employer] 12/23/2021 25-2800 / / [id number] [employer] Suture Q-Fix Od2.8 Mm - [id number] - [id number] Implanted:Qty: 1 on 04/12/2019 by Wagner Evans MD at [facility] Right: Shoulder [employer] 10/05/2021 25-2800 / / [id number] [employer] Suture Q-Fix Od2.8 Mm - [id number] - [id number] Implanted:Qty: 1 on 04/12/2019 by Wagner Evans MD at [facility] Right: Shoulder [employer] 11/19/2021 25-2800 / / [id number]
--- OUTSIDE RECORDS SUMMARY | 2024-11-16 13:29 | XMS_ITS | Data Portability ---
Author Organization [place] [facility] Chadwick AONE Vancourt Address [address] [place] [address] Assessment Encounter Date Assessment Date Assessment LastModified [...] for continued evaluation and management by a scalp specialist. Follow-up with this orthopedic office is [...] on having her get this done at [facility], there seem to be some confusion that [...] cortisone injection, discuss any input from the scalp specialist, and possibly do a cortisone injection [...] knee, 4 or more view 2023 024 [email or web address] [id number] 5 [facility], [address], [place], [address], 02/19/2024 10:06:39 XR, knee, 4 or more view 2023 024 [email or web address] 5 [facility], [address], [place], [address], 02/19/2024 10:06:39 Medication Orders Marcaine (PF) 0.5 % (5 mg/mL) injection solution [address], [address] [place], [address], 06/24/2024 11:42:59 lidocaine (PF) 100 mg/5 mL (2 %) injection syringe [address], [address] [place], [address], 06/24/2024 11:42:59 triamcino lone acetonide 40 mg/mL suspensio n for injection [address], [address] [place], [address], 06/24/2024 11:42:59 prednison e 10 mg tablet 2023 024 [facility]acy [facility], [address] [place], [address], 02/19/2024 10:07:01 Patient TargetsNo targets recorded. Patient Instructions Encounter Date Encounter Id Patient Instructions Last Modified By Organization Details Last Modified Time 02/19/2024 [id number] physical therapy * - Diagnosis: Low back pain with bilateral lower extremity radiculopathy including knee pain Evaluate and treat as indicated to reduce pain and to improve strength, mobility, stability, range of motion, and function. Please teach a home exercise plan and incorporate PT into patient's exercise routine. 2-3 sessions weekly for 6-8 weeks. Not available 02/26/2024 08:34:23 prednisone dosag e instructions Not available 02/19/2024 10:06:59 8 view X-ray qi dy obtained during today's office encounter show evidence of mild bilateral knee osteoarthritis. There is joint space narrowing, subchondral sclerosis and marginal osteophytosis. Kellgren-Ender grade 1. No evidence of acute fracture or osteolytic findings. Not available 02/19/2024 10:06:08 05/27/2024 [id number] 3 views of the l eft hand [...] Time Carpal tunnel syndrome of left wrist 63995197109651 2 Active 2023 Kelly mccann MD [address], [place], [address], [place] - [facility], P 4 10:53:51 Low back pain 383435637 Active 2023 ABY ROME PA-C [address], [place], [address], [place] [facility], P 4 10:06:17 Carpal tunnel syndrome of right wrist 81716428988190 8 Active 2024 Kelly mccann MD [address], [place], [address], [place] [facility], P 5 12:49:02 Primary gonarthros is, bilateral 225679742 Active 2024 ABY ROME PA-C [address], [place], [address], [place] [facility], P 10:00:32 Problem Notes None recorded. Procedures Surgical History Date Name Laterality Status Provider Name and Address Organization Details Recorded Time 5 MJG Knee injection w/US completed ABY ROME PA-C [address], [place], [address], [place] [facility] 06/24/2024 10:00:16 Carpal tunnel surgery completed Dar Cramer [facility] 08/02/2022 09:26:33 Shoulder Surgery completed Dar Cramer [facility] 08/02/2022 09:26:51 Imaging Results None recorded. Procedure Notes None recorded. Medical Equipment None Reported. Allergies Allergen ID Allergen Name Allergen Category Reaction Reaction Severity Criticality Documentation Date Start Date Code Code System Note Provider Name and Address Organization Details Recorded Time 1792 Product containin g penicilli n (product) medicatio n Not available Not available Not available 08/02/2022 38163 8001 SNOMED Dar Cramer [facility], [facility] 3 09:25:34 Medications Name Sig Start [...] Updated DateTime 04/29/2024 162.56 cm 31.8 kg/m2 70425.[address] [facility] 04/29/2024 10:42:02 Date Recorded Body height Provider Name an d Address Organization Details Last Updated DateTime 05/27/2024 162.[address] [place] [facility] 05/27/2024 10:50:45 Date Recorded Body height Provider Name an d Address Organization Details Last Updated DateTime 08/19/[address] - [facility] 08/19/2024 11:20:00 Social History None recorded. Functional Status Question Answer Note LastModified by Organizat ion Details LastModified Time Do you use any illicit or recreational drugs? No Information not available 08/02/2022 Do you or have you ever used any other forms of tobacco or nicotine? No [email or web address] Information not available 08/02/2022 What is your level of alcohol consumption? None [email or web address] Information not available 08/02/2022 Mental Status None recorded. Family History Relationship Description Onset Age of this Age Resolved Age Notes LastModified by Organization Details LastModified Time Brother Family history of malignant neoplasm [email or web address] Not available 02/04 09:40:47 Brother Hyperlipidem ia [email or web address] Not available 02/04 09:40:47 Father Family history of malignant neoplasm [email or web address] Not available 02/04 09:40:47 Father Heart disease [email or web address] Not available 10/2022 09:27:38 Father Hyperlipidem ia [email or web address] Not available 02/04 09:40:47 Mother Family history of malignant neoplasm [email or web address] Not available 02/04 09:40:47 Mother Heart disease [email or web address] Not available 10/2022 09:27:38 Mother Hyperlipidem ia [...] ICD10 Code Diagnosis Note [id number] LADAN SANZ [facility] 299 [facility] [address] [place] [address] 08/02/2022 08:39:42 08/02/2022 09:26:09 Low back pain 010584417 M54.50 Chronic low back pain 27 3586348 M54.50 [id number] MD EDGAR Jensen [facility] [address] [place] [address] 02/05/2024 09:40:09 02/05/2024 10:55:59 Pain of left wrist 9020167905 71565 M25.532 Carpal julio jasmina syndrome of left wrist 5951092522 85197 G56.02 [id number] LADAN CAMARILLOSC [facility] [address] [place] [address] 02/19/2024 09:34:37 02/19/2024 10:06:39 Pain of right knee region 7878101737 54258 M25.561 Pain of le ft knee region 7283456828 61872 M25.562 Low back pain 263581345 M54.50 [id number] LADAN CAMARILLO [facility] [address] [address] 04/29/2024 10:04:46 04/29/2024 10:58:45 Low back pain 110015598 M54.50 [id number] MD EDGAR Jensen [facility] [address] [address] 05/27/2024 10:12:05 05/27/2024 11:35:00 Carpal tunnel syndrome of left wrist 5111481965 66076 G56.02 Carpal julio jasmina syndrome of right wrist 5025431113 94025 G56.01 [id number] LADAN CAMARILLO [facility] 299 [facility] [address] [facility] [address] 06/24/2024 09:27:49 06/24/2024 10:20:04 Primary gonarthrosis, bilateral 399386338 M17.0 Osteoarthr itis of right knee joint 8100587779 57844 M17.11 [id number] LADAN CAMARILLO [facility] 299 [facility] [address] [place] [address] 08/19/2024 11:07:12 08/19/2024 11:24:52 Primary gonarthrosis, bilateral 311430599 M17.0 Health Concerns Section Related Observation LastModified by Organization Detai ls LastModified Time None Recorded Concern Status LastModified by Organization Details LastModified Time None Recorded Advance Directives Directive None Recorded Payers Insurance Date Sequence Insurance Name Policy Number Policy Mueller Covered Member ID Mueller Member ID Guarantor Name 11/02/2024 2 [place] [facility] Erin Porter [id number] Erin Porter 01/27/2024 1 [facility] Erin Porter [id number] Erin Porter 08/16/2024 1 [facility] - DOS ON OR AFTER 2022 - MEDICARE ADVANTAGE [place] (MEDICARE REPLACEMENT/AD VANTAGE - PPO) Erin Porter [id number] Erin Porter Notes Date Note Type Note [...] of either knee. ABY ROME PA-C [address] [address], [place], [address], [facility] - [facility] 02/19/2024 10:08:10 04/29/2024 text/html 78-year-old florence lowery presents for recheck of left leg pain. She reports that she used the prednisone that I prescribed her and got significant reduction of the severity of her pain but the effects wore off soon after completion of the prednisone taper. We did schedule a visit for her to see one of our scalp specialist but she was subsequently informed that her insurance does not cover [id number] services. Since that time, her daughter has made arrangements for spinal evaluation at practice not otherwise specified in [place]. She is scheduled to be seen on May 06. Otherwise, there is been no substantial change in character quality or location of her symptoms. ABY ROME PA-C [address] [address], [place], [address], [facility] 04/29/2024 11:01:00 05/27/2024 text/html She presents for follow-up of bilateral hand pain and numbness and tingling being worked up for recurrent carpal tunnel syndrome. She is Uzbek-speaking only and is accompanied by her daughter [...] fingers as well. Kelly Mclean MD [address] [address], [place], [address], [place] [facility] 05/27/2024 12:52:11 06/24/2024 text/html 78-year-old florence [...] accident or trauma. ABY ROME PA-C [address] [facility],[address], [address], [facility] - [facility] 06/24/2024 10:14:45 08/19/2024 text/html 78-year-old florence [...] her low back. ABY ROME PA-C [address] [facility] [address], [place], [address], [place] [facility] 08/19/2024 11:26:42 OBGyn Episode No OBEpisode recorded.
--- OUTSIDE RECORDS SUMMARY | 2024-11-16 13:29 | XMS_ITS | Patient Health Record ---
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
--- OUTSIDE RECORDS SUMMARY | 2024-11-16 13:29 | XMS_ITS | Encounter Summary ---
Author Organization [facility] Address [address] [facility] [address] [place] [address] Care Team Providers Care Strategic Manager Name Role Phone Sunita Lezama MD Primary Care Provider [phone] Encounter Details Date Type Department Care Team (Late st Contact Info) Description 11/16/2024 Orders Only [facility] [address] [place], [place] [id number] Provider, MD Brandon Social History Tobacco Use Types Packs/Day Years [...] Access Q2 Not on file 01/12/2024 Comments No Sex and Gender Information Value Date Recorded Sex Assigned at Female 02/25/2022 10:32 AM EDT Legal Sex Female 10:32 AM EDT Gender Identity Female 02/25/2022 10:32 AM EDT Sexual Orientation Straight 06/20/2022 11 :21 AM EST documented as of this encounter Plan of Treatment Not on file documented as of this encounter Procedures Procedure Name Priority Date/Time Associated Diagnosis Comments HM MAMMOGRAPHY Routine 11/12/2024 8:31 AM EDT documented in this encounter Results * Hm Mammography (11/12/2024 8:31 AM EDT) Anatomical Region Laterality Modality Other Historical Provider HEALTH MAINTENANCE Final Result documented in this encounter Visit Diagnoses Not on filedocumented in this encounter Additional Health Concerns Assessment Noted Time PHQ-9 Depression Total Score: 0 01/12/20 24 9:02 AM EDT documented as of this encounter Care Teams Strategic Manager Relationship Specialty Start Date End Date Sunita Lezama MD [address] [place] [address] PCP - General Family Medicine 04/02/21 documented as of this encounter
--- OUTSIDE RECORDS SUMMARY | 2024-11-16 13:29 | XMS_ITS | Clinical Summary ---
Author Organization [facility] [address] [place] [address] [place] [address] Phone Care Team Providers Care Casting Wheel Operator Name Role Phone Sunita Lezama MD Primary Care Provider [phone] Encounters Date Type Department Care Team Description 11/12/2024 1:30 PM EDT - 11/12/2024 11:59 PM EDT Hospital Encounter Radiology Department [address] [phone] Encounter for screening mammogram for breast cancer Discharge Disposition: Home or Self Care from Last 3 Months Surgical History Surgery Date Site/Laterality Comments HYSTERECTOMY PROCEDURE: HISTORICAL HYSTERECTOMY CHOLECYSTECTOMY PROCEDURE: HISTORICAL CHOLECYSTECTOMY TUBAL LIGATION PROCEDURE: HISTORICAL TUBAL LIGATION OTHER SURGICAL HISTORY 04/12/2019 Right PROCEDURE: NM SURGICAL ARTHROSCOPY SHOULDER W/ROTATOR CUFF RPR; COMMENT: Dr Evans CARPAL TUNNEL RELEASE 01/2020 Left PROCEDURE: HISTORICAL CARPAL TUNNEL REL; COMMENT: Dr Glenn Izaguirre CARPAL TUNNEL RELEASE 10/16/2020 Right PROCEDURE: HISTORICAL CARPAL TUNNEL REL; COMMENT: Dr. Glenn Izaguirre - [facility] Medical History Medical History Date Comments MCI [...] Sexual Orientation Not on file Obstetrics History Para Term AB IAB SAB Ectopic Multiple Livin g Live Births 4 4 4 4 Date Outcome GA Total Labor Labor/2nd/3rd Weight Sex Type Anes PTL Love A1 A5 Name Clin Term Term Term Term Last Filed Vital Signs Vital Sign Reading [...] Health Maintenance Due Date Last Done Comments Falls Risk Assessment 04/05/2022 Hepatitis C Screening 04/05/2022 Medicare Annual Wellness Visit 04/05/2022 Social Influencers of Health Screening 04/05/2022 RSV Immunization Adult Patients (1 - 1-dose 75+ series) 10/27/2022 COVID-19 Vaccine ( season) 2023 02/27/2021, 07/22/2020, 06/24/2020 Depression Screening 04/28/2024 Influenza Vaccine (#1) 2024 , 01/24/2023, 01/16/2022, Additional history exists Hypertension/CHF/CAD Annual BMP Blood Test 09/23/2025 09/23/2024 Cholesterol Screening (Lipid Panel) 09/23/2029 09/23/2024 Osteoporosis Screening (Bone Density Screening) 03/29/2031 03/29/2021, 09/05/2017 DTaP,Tdap,and Td Vaccines (2 - Td or Tdap) 10/24/2032 10/24/2022 Zoster Vaccines Completed 08/15/2021, 06/20/2021 Pneumococcal Vaccine: 50+ Years Completed 12/25/2022, 07/28/2019 Breast Cancer Screening Discontinued 11/11/19 24, 11/11/2023, [...] this topic Medical Devices Implanted Type Area Tube Maker Device Identifier Shelf Expiration Date Model / Serial / Lot [place] Suture Q-Fix Od2.8 Mm - [id number] Implanted:Qty: 2 on 04/12/2019 by Wagner Evans MD Right: Shoulder [employer] 12/23/2021 25-2800 / / [id number] [place] Suture Q-Fix Od2.8 Mm - [id number] Implanted:Qty: 1 on 04/12/2019 by Wagner Evans MD Right: Shoulder [employer] 10/05/2021 25-2800 / / [id number] [place] Suture Q-Fix Od2.8 Mm - [id number] Implanted:Qty: 1 on 04/12/2019 by Wagner Evans MD Right: Shoulder [employer] 11/19/2021 25-2800 / / [id number] Procedures Procedure Name Priority Date/Time Associated Diagnosis Comments MG MAMMO DIGITAL SCREENING W DAVID BILAT Routine 11/12/2024 1:46 PM EDT Encounter for screening mammogram for breast cancer SCREENING MAMMOGRAPHY BI 2-VIEW BREAST INC CAD Routine 11/11/2023 1:12 PM EDT Encounter for screening mammogram for malignant neoplasm of breast DXA BONE DENSITY STUDY 1+ SITS AXIAL SKEL Routine 03/29/2021 3:51 PM EST Encounter for screening for osteoporosis from Last 3 Months or Most Recently Relevant to Health Maintenance Results * MG Mammo Digital Screening w David bilat (11/12/2024 1:46 PM EDT) Anatomical Region Laterality Modality Breast Bilateral Mammography 11/15/2024 6:19 PM EDT Impressions 11/15/2024 6:22 PM EDT No mammographic evidence of malignancy. BREAST DENSITY: B - There are scattered areas of fibroglandular density. BI-RADS CATEGORY: 1 - NEGATIVE RECOMMENDATION: Screening bilateral mammogram is recommended in 1 year. MAMMO LOCATION: [facility], [address] [place] [address], [address], . -------- FINAL REPORT -------- Dictated By: Ana Goodwin Dictated Date: 11/15/2024 18:19 ET Assigned Physician: Ana Goodwin Reviewed and Electronically Signed By: Ana Goodwin Signed Date: 11/15/2024 18:22 ET Workstation ID: [id number] Transcribed By: Self Edit Transcribed Date: 11/15/2024 18:19 ET Narrative 11/15/2024 6:22 PM EDT EXAM: Screening Mammogram CLINICAL: 79 years old, Female, routine annual exam. COMPARISON: 11/11/2023 and as far back as 09/09/2018 TECHNIQUE: Bilateral MLO and CC views were obtained digitally with 3-D mammogram (digital breast tomosynthesis). Computer-aided detection was utilized in evaluation of this exam (CAD). FINDINGS: No new suspicious mass, architectural distortion, or suspicious calcifications. Procedure Note Ana Goodwin MD - 11/15/2024 EXAM: Screening Mammogram CLINICAL: 79 years old, Female, routine annual exam. COMPARISON: 11/11/2023 and as far back as 09/09/2018 TECHNIQUE: Bilateral MLO and CC views were obtained digitally with 3-Dmammogram (digital breast tomosynthesis). Computer-aided detection wasutilized in evaluation of this exam (CAD). FINDINGS: No new suspicious mass, architectural distortion, or suspiciouscalcifications. IMPRESSION: No mammographic evidence of malignancy. BREAST DENSITY: B - There are scattered areas of fibroglandular density. BI-RADS CATEGORY: 1 - NEGATIVE RECOMMENDATION: Screening bilateral mammogram is recommended in 1 year. MAMMO LOCATION: [facility], [address] [place] [address], [address], . -------- FINAL REPORT -------- Dictated By: Ana Goodwin Dictated Date: 11/15/2024 18:19 ET Assigned Physician: Ana Goodwin Reviewed and Electronically Signed By: Ana Goodwin Signed Date: 11/15/2024 18:22 ET Workstation ID: [id number] Transcribed By: Self Edit Transcribed Date: 11/15/2024 18:19 ET us Sunita Lezama MD IMG BI PROCEDURES Final Resul t * SCREENING MAMMOGRAPHY BI 2-VIEW BREAST INC [...] (World Health Organization Fracture Risk Assessment) [facility] Department of Internal Medicine recommends using [...] (World Health Organization Fracture Risk Assessment) [facility] Department of Internal Medicine recommendsusing National [...] fracture risk by FRAX. Kamla Cano MD IMG DXA PROCEDURES Final Res ult from Last 3 Months or Most Recently Relevant to Health Maintenance Insurance [facility] MEDICARE Member Subscriber Plan / Payer (Ef fective 2022-Present) Name:Erin Silvestre Relation to Subscriber:Self Name:Erin Silvestre Payer ID:[id number] Group ID:[id number] Type:Not on file Address: [address] [place] [address] Care Teams Casting Wheel Operator Relationship Specialty Start Date End Date Sunita Lezama MD [address] [place] [address] PCP - General Family Medicine 11/12/24
--- OUTSIDE RECORDS SUMMARY | 2024-11-16 13:29 | XMS_ITS ---
Author Name Joshua MCWILLIAMS, Mr. Ishmael Hairston Address [address] [place] [address] Phone [phone] [facility] Care Team Providers Care Anchor Operator Name Role Phone Vu Lewis Unavailable [phone] Reason for Referral Not Available Allergies, adverse [...] (do not use for phone, instead use 06613-90) [facility] ([place]) 04/30/2022 Essential (primary) hypertensionUnspecified osteoarthritis, unspecified siteDizziness and giddinessGastro-esophageal reflux disease without esophagitisOther constipationPolyneuropathy, unspecified New patient,40-59min; chronic exacerbation, 2 stable chronic or 1 acute illness add add modifier 95 for video (do not use for phone, instead use 91432-27) [facility] [place]30/2022 New patient,40-59min; chronic exacerbation, 2 stable chronic or 1 acute illness add add modifier 95 for video (do not use for phone, instead use 24290-23) [facility] [place]/2022 New patient,40-59min; chronic exacerbation, 2 stable chronic or 1 acute illness add add modifier 95 for video (do not use for phone, instead use 95848-35) [facility] [place]/30/2022 New patient,40-59min; chronic exacerbation, 2 stable chronic or 1 acute illness add add modifier 95 for video (do not use for phone, instead use 78751-20) [facility] [place] 04/30/2022 New patient,40-59min; chronic exacerbation, 2 stable chronic or 1 acute illness add add modifier 95 for video (do not use for phone, instead use 03214-52) [facility] [place] 04/30/2022 New patient,40-59min; chronic exacerbation, 2 stable chronic or 1 acute illness add add modifier 95 for video (do not use for phone, instead use 93526-79) [facility] [place] 04/30/2022 Vital Signs Date of Collection Vitals [...] tive Time Current Smoking Status Never smoker 2024-10-27 2 Sex Female History of Procedures Procedures Service Procedure code Service date Servicing provider Phone# New patient,40-59min; chronic exacerbation, 2 stable chronic or 1 acute illness add add modifier 95 for video (do not use for phone, instead use 10797-81) [id number] 2022-04-30 No Data Available No Data Availa [...] Date Concern 2022-04-30 Visit completed by mary evans and video using [employer] Tablet. Introductory visit with [facility] to establish care. Today, patient has [...] this visitand for caring and treatment at [facility]. Patient verbally consented to any as neededcare by [facility].
== END 2024-11-16 15:21 | disposition home or self-care (01) ==
PROVIDERS: PCP Family Medicine; Visit Provider Nurse Practitioner Family
DX: M25.562 Pain in left knee (principal)

== ENCOUNTER 2024-11-16 12:29 | Outpatient (REF) | payer OTHER, SELFPAY ==
--- NOTE | ~2024-11-16 | XR_ITS ---
EXAMINATION: XR KNEE, LEFT CLINICAL INFORMATION: M25.562 - Pain in left knee COMPARISON: None available. TECHNIQUE: Four views of the left knee. FINDINGS: There is no joint effusion. There is mild narrowing of the medial joint space. There is no soft tissue calcification. There are no osteophytes. No fracture or step-off is identified. XR/XR knee LT 4V IMPRESSION: Mild nonspecific medial joint space narrowing. Electronically signed by: Michael Alexandra MD 11/16/2024 02:23 PM EDT
== END 2024-11-16 12:30 | disposition home or self-care (01) ==
LOC: HO.HMGCX 12:29
PROVIDERS: PCP Family Medicine; Visit Provider Nurse Practitioner Family
DX: M25.562 Pain in left knee (principal)
CPT/HCPCS: 73564; 99212

== ENCOUNTER → 2024-11-16 14:05 | Outpatient (BNV) | payer OTHER, SELFPAY | PROVIDERS: PCP Family Medicine; Visit Provider Radiology Diagnostic Radiology | DX: M17.12 Unilateral primary osteoarthritis, left knee (principal) | CPT/HCPCS: 73564 ==

== ENCOUNTER 2024-11-21 10:36 | Outpatient (REF) | payer OTHER, SELFPAY ==
--- NOTE | ~2024-11-21 | MR_ITS ---
EXAMINATION: MR KNEE WITHOUT CONTRAST, RIGHT CLINICAL INFORMATION: Right knee pain 1 month, reduced range of motion, instability, numbness since a twisting injury PRIOR: X-ray April 02, 2021 FINDINGS: Menisci: Lateral Meniscus: Short linear fluid signal extends to the tibial peripheral margin of the posterior horn of the lateral meniscus on a single image. Medial Meniscus: Horizontal fluid signal extends from the peripheral margin to the femoral surface in the posterior horn of the medial meniscus. Meniscal body is degenerated and moderately extruded from the joint line. ACL/PCL: ACL is intact. It demonstrates intermediate signal. PCL is intact. It demonstrates intermediate signal centrally. Extensor mechanism: Small mildly complex joint effusion is evident. There is streaky edema in the portions of Hoffa's fat pad. There is trace fluid in the deep infrapatellar bursa. MCL/LCL: MCL is bowed outward by extruded meniscus. The meniscal femoral coronary ligament is attenuated the femoral attachment and indistinct. MCL demonstrates intermediate signal along the superficial bundle and centrally. LCL complex is intact. Articular cartilage: Patellofemoral Compartment: Deep partial full-thickness cartilage loss is present along the medial trochlea. There is associated reactive marrow signal change at the superior medial margin. Patellar cartilage is intact. Lateral Compartment: There is mild thinning of cartilage in the far posterior lateral femoral condyle. Articular cartilage is intact otherwise Medial Compartment: There is shallowness deep partial thickness cartilage loss in the central weightbearing region and far posterior medial femoral condyle. Medial tibial plateau demonstrates mild thinning of cartilage near the joint line. Bones/Marrow: Small marginal osteophytes are present along the medial joint line and medial trochlea. Soft tissues: There is a moderate-sized leaking Dowell's cyst. MR/MR knee RT wo con IMPRESSION: The body of the medial meniscus is mildly extruded from the joint line. It is degenerated, frayed, and torn. There is a horizontal tear involving the posterior horn the medial meniscus extending to the femoral surface. There is a possible tear involving the periphery of the posterior horn lateral meniscus. Mild osteoarthritis with cartilage loss most advanced in the medial compartment and medial trochlea. There is a small complex joint effusion raising question of underlying synovitis. Age-indeterminate superficial MCL grade 1 sprain. Grade 2 sprain versus tear of meniscal femoral coronary ligament of the femoral attachment. There is a moderate-sized leaking Dowell's cyst. Electronically signed by: Michael Alexandra MD 11/22/2024 10:15 AM EDT
--- OUTSIDE RECORDS SUMMARY | 2024-11-21 10:42 | XMS_ITS | Clinical Summary ---
Author Organization [facility] Address [address] [place] [address] Care Team Providers Care Nuclear Equipment Operator Name Role Phone Unavailable Primary Care Provider [...] this topic Medical Devices Implanted Type Area Cad Cam Programmer Device Identifier Shelf Expiration Date Model / Serial / Lot [place] Suture Q-Fix Od2.8 Mm - [id number] - [id number] Implanted:Qty: 2 on 04/12/2019 by Wagner Evans MD [place] [facility] Right: Shoulder [employer] 12/23/2021 25-2800 / / [id number] [place] Suture Q-Fix Od2.8 Mm - [id number] - [id number] Implanted:Qty: 1 on 04/12/2019 by Wagner Evans MD at [facility] [place] [facility] Right: Shoulder [employer] 10/05/2021 25-2800 / / [id number] [place] Suture Q-Fix Od2.8 Mm - [id number] - [id number] Implanted:Qty: 1 on 04/12/2019 by Wagner Evans MD at [facility] [place] [facility] Right: Shoulder [employer] 11/19/2021 25-2800 / / [id number]
--- OUTSIDE RECORDS SUMMARY | 2024-11-21 10:42 | XMS_ITS | Encounter Summary ---
Author Organization [employer] Address [address] [place] [address] Care Team Providers Care Clinic Receptionist Name Role Phone Sunita Lezama MD Primary Care Provider [phone] Encounter Details Date Type Department Care Team ([facility] st Contact Info) Description 06/11/2023 Abstract [facility] [address] [place] [address] Sunita Lezama MD [address] [place], [place] [id number] Social History Tobacco Use Types Packs/Day Years [...] documented as of this encounter Care Teams Clinic Receptionist Relationship Specialty Start Date End Date Sunita Lezama MD [address] [place] [address] PCP - General Family Medicine 04/02/21 documented as of this encounter
--- OUTSIDE RECORDS SUMMARY | 2024-11-21 10:42 | XMS_ITS | Data Portability ---
Author Organization [place] [facility] [place] Address [address] [place] [address] Assessment Encounter Date Assessment Date Assessment LastModified [...] for continued evaluation and management by a regulatory affairs specialist. Follow-up with this orthopedic office is [...] on having her get this done at [facility], there seem to be some [...] cortisone injection, discuss any input from the regulatory affairs specialist, and possibly do a cortisone injection [...] Modified Time Details Appointments FOLLOW UP 2024 08:45A Huy Nj MD Not available Not available Not available ESTABLISH ED/NEW PROBLEM 2024 10:00A Huy ROME PA-C Not available Not available Not available Lab None recorded. Referral None recorded. Procedures None recorded. Surgeries None recorded. Imaging XR, knee, 4 or more view 2023 024 [email or web address] 5 [facility], [address], [place], [address], 02/19/2024 10:06:39 XR, knee, 4 or more view 2023 024 [email or web address] 5 [facility], [address], [place], [address], 02/19/2024 10:06:39 Medication Orders Marcaine (PF) 0.5 % (5 mg/mL) injection solution [address]/[facility], [address] [place], [address], 06/24/2024 11:42:59 lidocaine (PF) 100 mg/5 mL (2 %) injection syringe [address]/[facility] [address], [address] [place], [address], 06/24/2024 11:42:59 triamcino lone acetonide 40 mg/mL suspensio n for injection [address]/Pharmacy [facility]20[facility], [address] [place], [address], 06/24/2024 11:42:59 prednison e 10 mg tablet 2023 024 [facility]/Pharmacy #2071, [address] [place], [address], 02/19/2024 10:07:01 Patient TargetsNo targets recorded. Patient Instructions Encounter Date Encounter Id Patient Instructions Last Modified By Organization Details Last Modified Time 02/19/2024 [id number] physical therapy * - Diagnosis: Low back pain with bilateral lower extremity radiculopathy including knee pain Evaluate and treat as indicated to reduce pain and to improve strength, mobility, stability, range of motion, and function. Please teach a home exercise plan and incorporate PT into patient's exercise routine. 2-3 sessions weekly for 6-8 weeks. [email or web address] Not available 02/26/2024 08:34:23 prednisone dosag e instructions Not available 02/19/2024 10:06:59 8 view X-ray qi dy obtained during today's office encounter show evidence of mild bilateral knee osteoarthritis. There is joint space narrowing, subchondral sclerosis and marginal osteophytosis. Kellgren-Ender grade 1. No evidence of acute fracture or osteolytic findings. Not available 02/19/2024 10:06:08 05/27/2024 [id number] 3 views of the l eft hand [...] Time Carpal tunnel syndrome of left wrist 50220910369766 2 Active 2023 Kelly mccann MD [address], [place], [address], [place] [facility], P 4 10:53:51 Low back pain 304865107 Active 2023 ABY ROME PA-C [address], [place], [address], [place] - [facility], P 4 10:06:17 Carpal tunnel syndrome of right wrist 04460581337468 8 Active 2024 Kelly mccann MD [address], [place], [address], [place] - [facility], P 5 12:49:02 Primary gonarthros is, bilateral 895914312 Active 2024 ABY ROME PA-C [address], [place], [address], [place] - [facility], P 5 10:00:32 Problem Notes None recorded. Procedures Surgical History Date Name Laterality Status Provider Name and Address Organization Details Recorded Time 5 MJG Knee injection w/US completed ABY ROME PA-C [address], [place], [address], [place] - [facility], P 06/24/2024 10:00:16 Carpal tunnel surgery completed Dar Cramer [facility], [facility] 08/02/2022 09:26:33 Shoulder Surgery completed Dar Cramer [facility] 08/02/2022 09:26:51 Imaging Results None recorded. Procedure Notes None recorded. Medical Equipment None Reported. Allergies Allergen ID Allergen Name Allergen Category Reaction Reaction Severity Criticality Documentation Date Start Date Code Code System Note Provider Name and Address Organization Details Recorded Time 1792 Product containin g penicilli n (product) medicatio n Not available Not available Not available 08/02/2022 98825 8001 SNOMED Dar Cramer [facility], [facility], P 3 09:25:34 Medications Name Sig Start [...] Updated DateTime 04/29/2024 162.56 cm 31.8 kg/m2 17922.[address] - [facility], P 04/29/2024 10:42:02 Date Recorded Body height Provider Name an d Address Organization Details Last Updated DateTime 05/27/2024 162.[address] [place] - [facility] 05/27/2024 10:50:45 Date Recorded Body height Provider Name an d Address Organization Details Last Updated DateTime 08/19/[address] - [facility] P 08/19/2024 11:20:00 Social History None recorded. Functional Status Question Answer Note LastModified by Organizat ion Details LastModified Time Do you use any illicit or recreational drugs? No [email or web address] Information not available 08/02/2022 Do you or have you ever used any other forms of tobacco or nicotine? No [email or web address] Information not available 08/02/2022 What is your level of alcohol consumption? None [email or web address] Information not available 08/02/2022 Mental Status None recorded. Family History Relationship Description Onset Age of this Age Resolved Age Notes LastModified by Organization Details LastModified Time Brother Family history of malignant neoplasm [email or web address] Not available 02/04 09:40:47 Brother Hyperlipidem ia [email or web address] Not available 02/04 09:40:47 Father Family history of malignant neoplasm [email or web address] Not available 02/04 09:40:47 Father Heart disease [email or web address] Not available 10/2022 09:27:38 Father Hyperlipidem ia [email or web address] Not available 02/04 09:40:47 Mother Family history of malignant neoplasm [email or web address] Not available 02/04 09:40:47 Mother Heart disease [email or web address] Not available 10/2022 09:27:38 Mother Hyperlipidem ia [...] ICD10 Code Diagnosis Note [id number] LADAN SANZ [facility] [address] [address] 08/02/2022 08:39:42 08/02/2022 09:26:09 Low back pain 030168401 M54.50 Chronic low back pain 27 0806685 M54.50 [id number] MD EDGAR Jensen [facility] [address] [address] 02/05/2024 09:40:09 02/05/2024 10:55:59 Pain of left wrist 0919805463 54544 M25.532 Carpal julio jasmina syndrome of left wrist 9325263041 16929 G56.02 [id number] LADAN CAMARILLO [facility] [address] [address] 02/19/2024 09:34:37 02/19/2024 10:06:39 Pain of right knee region 0653657563 19718 M25.561 Pain of le ft knee region 6396472438 85061 M25.562 Low back pain 751124329 M54.50 [id number] LADAN CAMARILLO [facility] [address] [address] 04/29/2024 10:04:46 04/29/2024 10:58:45 Low back pain 131444680 M54.50 [id number] MD [facility] [address] [facility] [address] [facility] [place] [address] 05/27/2024 10:12:05 05/27/2024 11:35:00 Carpal tunnel syndrome of left wrist 0875224233 68601 G56.02 Carpal julio jasmina syndrome of right wrist 7567529005 38378 G56.01 [id number] LADAN CAMARILLO [address] [facility] [address] [facility], [place] [address] 06/24/2024 09:27:49 06/24/2024 10:20:04 Primary gonarthrosis, bilateral 880693282 M17.0 Osteoarthr itis of right knee joint 1834735305 38680 M17.11 [id number] LADAN CAMARILLO [place] [address] [facility] [address] [facility], [place] [address] 08/19/2024 11:07:12 08/19/2024 11:24:52 Primary gonarthrosis, bilateral 251966116 M17.0 Health Concerns Section Related Observation LastModified by Organization Detai ls LastModified Time None Recorded Concern Status LastModified by Organization Details LastModified Time None Recorded Advance Directives Directive None Recorded Payers Insurance Date Sequence Insurance Name Policy Number Policy Mueller Covered Member ID Mueller Member ID Guarantor Name 11/02/2024 2 [place] [facility] Erin Porter [id number] Erin Porter 01/27/2024 1 [facility] Erin Porter [id number] Erin Porter 08/16/2024 1 [facility] - DOS ON OR AFTER 2022 - MEDICARE ADVANTAGE [place] (MEDICARE REPLACEMENT/AD VANTAGE - PPO) Erin Porter [id number] Erin Porter Notes Date Note Type Note Provider Name and Address Organization Details Recorded Time 02/19/2024 text/html 78-year-old female presents with complaints of knee pain. She [...] of either knee. ABY ROME PA-C [address] [address], [place], [address], [facility] - [facility] 02/19/2024 10:08:10 04/29/2024 text/html 78-year-old female presents for recheck of left leg pain. She reports that she used the prednisone that I prescribed her and got significant reduction of the severity of her pain but the effects wore off soon after completion of the prednisone taper. We did schedule a visit for her to see one of our regulatory affairs specialist but she was subsequently informed that her insurance does not cover [id number] services. Since that time, her daughter has made arrangements for spinal evaluation at practice not otherwise specified in [place]. She is scheduled to be seen on May 06. Otherwise, there is been no substantial change in character quality or location of her symptoms. ABY ROME PA-C [address] [address], [place], [address], [facility] 04/29/2024 11:01:00 05/27/2024 text/html ROS as noted in the HPI She presents for follow-up of bilateral hand pain and numbness and tingling being worked up for recurrent carpal tunnel syndrome. She is Portuguese-speaking only and is accompanied by her daughter [...] fingers as well. Kelly Mclean MD [address] [address], [place], [address], [place] - [facility] 05/27/2024 12:52:11 06/24/2024 text/html 78-year-old female presents with persistent right greater than left-sided [...] accident or trauma. ABY ROME PA-C [address], [address], [facility] - [facility] P 06/24/2024 10:14:45 08/19/2024 text/html 78-year-old female presents for recheck of knee pain. She [...] her low back. ABY ROME PA-C [address] [address], [place], [address], [facility] - [facility] 08/19/2024 11:26:42 OBGyn Episode No OBEpisode recorded.
--- OUTSIDE RECORDS SUMMARY | 2024-11-21 10:42 | XMS_ITS | Patient Health Record ---
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
--- OUTSIDE RECORDS SUMMARY | 2024-11-21 10:42 | XMS_ITS ---
Author Name Joshua MCWILLIAMS, Mr. Ishmael Hairston Address [address] [place] [address] Phone [phone] [facility] Care Team Providers Care House Builder Name Role Phone Vu Lewis Unavailable [phone] Reason for Referral Not Available Allergies, adverse [...] (do not use for phone, instead use 96882-35) [facility], ([place]) 04/30/2022 Essential (primary) hypertensionUnspecified osteoarthritis, unspecified siteDizziness and giddinessGastro-esophageal reflux disease without esophagitisOther constipationPolyneuropathy, unspecified New patient,40-59min; chronic exacerbation, 2 stable chronic or 1 acute illness add add modifier 95 for video (do not use for phone, instead use 77441-71) [facility] ([place] 04[place] New patient,40-59min; chronic exacerbation, 2 stable chronic or 1 acute illness add add modifier 95 for video (do not use for phone, instead use 99610-77) [facility] ([place] New patient,40-59min; chronic exacerbation, 2 stable chronic or 1 acute illness add add modifier 95 for video (do not use for phone, instead use 92738-56) [facility] ([place] New patient,40-59min; chronic exacerbation, 2 stable chronic or 1 acute illness add add modifier 95 for video (do not use for phone, instead use 51215-61) [facility] New patient,40-59min; chronic exacerbation, 2 stable chronic or 1 acute illness add add modifier 95 for video (do not use for phone, instead use 05422-90) [facility] ([place] 04[place] New patient,40-59min; chronic exacerbation, 2 stable chronic or 1 acute illness add add modifier 95 for video (do not use for phone, instead use 33786-88) [facility] ([place] 04/[place]/2022 Vital Signs Date of Collection Vitals [...] Time Current Smoking Status Never smoker 2024-10-27 7 Sex Female History of Procedures Procedures Service Procedure code Service date Servicing provider Phone# New patient,40-59min; chronic exacerbation, 2 stable chronic or 1 acute illness add add modifier 95 for video (do not use for phone, instead use 72435-21) [id number] 2022-04-30 No Data Available No Data Availa [...] completed by mary evans and video using [employer] Tablet. Introductory visit with [facility] to establish care. Today, patient has [...] caring and treatment at [facility]. Patient verbally consented to any as neededcare by [facility].
--- OUTSIDE RECORDS SUMMARY | 2024-11-21 10:42 | XMS_ITS | Clinical Summary ---
Author Organization [facility] [address] [place] [address] [place] [address] Phone Care Team Providers Care Technical Solutions Consultant Name Role Phone Sunita Lezama MD Primary Care Provider [phone] Encounters Date Type Department Care Team Description 11/12/2024 1:30 PM EDT - 11/12/2024 11:59 PM EDT Hospital Encounter Radiology Department [address] [phone] Encounter for screening mammogram for breast cancer Discharge Disposition: Home or Self Care from Last 3 Months Surgical History Surgery Date Site/Laterality Comments HYSTERECTOMY PROCEDURE: HISTORICAL HYSTERECTOMY CHOLECYSTECTOMY PROCEDURE: HISTORICAL CHOLECYSTECTOMY TUBAL LIGATION PROCEDURE: HISTORICAL TUBAL LIGATION OTHER SURGICAL HISTORY 04/12/2019 Right PROCEDURE: [place] SURGICAL ARTHROSCOPY SHOULDER W/ROTATOR CUFF RPR; COMMENT: Dr Evans CARPAL TUNNEL RELEASE 01/2020 Left PROCEDURE: HISTORICAL CARPAL TUNNEL REL; COMMENT: Dr Glenn Izaguirre CARPAL TUNNEL RELEASE 10/16/2020 Right PROCEDURE: HISTORICAL CARPAL TUNNEL REL; COMMENT: Dr. Glenn Izaguirre - [facility] Medical History Medical History Date Comments MCI [...] Completed 12/25/2022, 07/28/2019 Breast Cancer Screening Discontinued 11/13/19, 11/11/2023, 11/11/2023, Additional history exists HIB Vaccines Aged Out [...] this topic Medical Devices Implanted Type Area Home Health Attendant Device Identifier Shelf Expiration Date Model / Serial / Lot Amity Suture Q-Fix Od2.8 Mm - [id number] Implanted:Qty: 2 on 04/12/2019 by Wagner Evans MD Right: Shoulder [employer] 12/23/2021 25-2800 / / [id number] Amity Suture Q-Fix Od2.8 Mm - [id number] Implanted:Qty: 1 on 04/12/2019 by Wagner Evans MD Right: Shoulder [employer] - OR[employer] 10/05/2021 25-2800 / / [id number] Amity Suture Q-Fix Od2.8 Mm - [id number] Implanted:Qty: 1 on 04/12/2019 by Wagner Evans MD Right: Shoulder [employer] - [employer] 11/19/2021 25-2800 / / [id number] Procedures Procedure Name Priority Date/Time Associated Diagnosis Comments MG MAMMO DIGITAL SCREENING W DAVID BILAT Routine 11/12/2024 1:46 PM EDT Encounter for screening mammogram for breast cancer DXA BONE DENSITY STUDY 1+ SITS AXIAL [...] is recommended in 1 year. MAMMO LOCATION: [facility], [address] [place] [address], [address], . -------- FINAL REPORT -------- Dictated By: Ana Goowdin Dictated Date: 11/15/2024 18:19 ET Assigned Physician: Ana Goodwin Reviewed and Electronically Signed By: Ana Goodwin Signed Date: 11/15/2024 18:22 ET Workstation ID: [id number] Transcribed By: Self Edit Transcribed Date: 11/15/2024 [...] is recommended in 1 year. MAMMO LOCATION: [facility], [address] [place], [place], [address], . -------- FINAL REPORT -------- Dictated By: Ana Goodwin Dictated Date: 11/15/2024 18:19 ET Assigned Physician: Ana Goodwin Reviewed and Electronically Signed By: Ana Goodwin Signed Date: 11/15/2024 18:22 ET Workstation ID: [id number] Transcribed By: Self Edit Transcribed Date: 11/15/2024 18:19 ET us Sunita Lezama MD IMG BI PROCEDURES Final Resul t * DXA BONE [...] (World Health Organization Fracture Risk Assessment) [facility] Department of Internal Medicine recommends using National [...] (World Health Organization Fracture Risk Assessment) [facility] [facility] Department of Internal Medicine recommendsusing National Osteoporosis [...] fracture risk by FRAX. Kamla Cano MD IM DXA PROCEDURES Final Res ult from Last 3 Months or Most Recently Relevant to Health Maintenance Insurance [employer] MEDICARE Member Subscriber Plan / Payer (Ef fective 2022-Present) Name:Erin Silvestre Relation to Subscriber:Self Name:Erin Silvestre Payer ID:[id number] Group ID:[id number] Type:Not on file Address: [address] [place] [address] Care Teams Technical Solutions Consultant Relationship Specialty Start Date End Date Sunita Lezama MD [address] [place], [place] [id number] PCP - General Family Medicine 11/12/24
== END 2024-11-21 10:37 | disposition home or self-care (01) ==
LOC: HO.MRI 10:36
PROVIDERS: PCP Family Medicine; Visit Provider Family Medicine
DX: M25.561 Pain in right knee (principal)
CPT/HCPCS: 73721

== ENCOUNTER → 2024-11-21 10:44 | Outpatient (BNV) | payer OTHER, SELFPAY | PROVIDERS: PCP Family Medicine; Visit Provider Radiology Diagnostic Radiology | DX: M23.221 Derangement of posterior horn of medial meniscus due to old tear or injury, right knee (principal) | CPT/HCPCS: 73721 ==

== ENCOUNTER 2024-12-23 16:08 | Outpatient (REF) | payer OTHER, SELFPAY ==
--- OUTSIDE RECORDS SUMMARY | 2024-12-23 15:30 | XMS_ITS | Encounter Summary ---
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 Social History Tobacco Use Types Packs/Day Years [...] AM EST documented as of this encounter Last Filed Vital Signs Vital Sign Reading Time Taken Comments Blood Pressure 140/74 12/23/2024 3:27 PM EDT Pulse 76 12/23/2024 3:27 PM EDT Temperature 37 C (98.6 F) 12/23/2024 3:27 PM EDT Respiratory Rate 20 12/23/2024 3:27 PM EDT Oxygen Saturation - - Inhaled Oxygen Concentration - - Weight 90.2 kg (198 lb 12.8 oz) 12/23/2024 3:27 PM EDT Height - - Body Mass Index 34.12 2024 11:13 AM EDT documented in this encounter Progress Notes * Sunita Lezama MD - 12/23/2024 3:30 PM EDT Subjective Patient ID: Erin Porter is a 79 y.o. female who presents for No chief complaint on file.. HPI Review of Systems Objective Visit Vitals BP (!) 140/74 Pulse 76 Temp 98.6 ??F (37 ??C) (Oral) Resp 20 Wt 198 lb 12.8 oz (90.2 kg) BMI 34.12 kg/m?? OB Status Postmenopausal Smoking Status Never BSA 2.02 m?? Physical Exam Constitutional: General: She is not in acute distress. Appearance: She is obese. She is not ill-appearing. HENT: Head: Normocephalic and atraumatic. Nose: No congestion. Pulmonary: Effort: Pulmonary effort is normal. No respiratory distress. Breath sounds: Normal breath sounds. Musculoskeletal: Cervical back: Normal range of motion. Right knee: Swelling present. Decreased range of motion. Tenderness present. Left knee: Swelling present. Decreased range of motion. Tenderness present. Neurological: General: No focal deficit present. Mental Status: She is alert. Psychiatric: Mood and Affect: Mood normal. Assessment/Plan Problem List Items Addressed This Visit Osteoarthritis of patellofemoral joint Relevant Medications traMADol (Ultram) 50 MG tablet Chronic pain of right knee - Primary Relevant Medications traMADol (Ultram) 50 MG tablet Knee pain and mobility issues Assessment: Patient reports significant knee pain and mobility issues. Imaging studies reveal arthritis in the left knee and possible menesical tear in the right knee. There is mention of meniscal abnormalities, swelling, and medial ligament interior damage. Patient has tried steroid injections without significant improvement. She has difficulty walking and has been using assistive devices. Plan: - Consider referral to orthopedics for further evaluation and management - Discuss potential for physical therapy - Evaluate need for manual wheelchair for mobility assistance - Prescribe tramadol 50 mg once daily at bedtime - Patient to follow up if pain worsens or new symptoms develop - Copy of MRI given to granddaughter to send to ortho ~~~~~~~~ Manual Wheelchair Patient???s clinical condition supports the need for a manual wheelchair because: The patient has amobility limitation that significantly impairs her ability to participate in one or more mobility-related activities of daily living (MRADL). Medical condition: Severe bilateral knee arthritis The patient???s mobility limitation cannot be sufficiently resolved by the use of a fitted cane or a walker. Use of a manual wheelchair will significantly improve the patient's ability to participatein MDRALs and patients will use it on a regular basis in the home. The patient has indicated that her home provides adequate access between rooms, maneuvering space, and surfaces for the use of the manual wheelchair. The patient has a caregiver who is available, willing and able to provide assistance with the wheelchair. Patient needs a lightweight wheelchair. documented in this encounter Plan of Treatment Upcoming Encounters Date Type Department Care Team (Late st Contact Info) Description 02/28/2025 10:00 AM EST Office Visit [facility] [address] [place] [address] Sunita Lezama MD [address] [place] [address] documented as of this encounter Visit Diagnoses Diagnosis Chronic pain of right knee- Primary Osteoarthritis of patellofemoral joints of both knees documented in this encounter Additional Health Concerns Assessment Noted Time PHQ-9 Depression Total Score: 0 01/12/20 24 9:02 AM EDT documented as of this encounter Care Teams Embroidery Specialist Relationship Specialty Start Date End Date Sunita Lezama MD [address] [place] [id number] PCP - General Family Medicine 04/02/21 documented as of this encounter
--- OUTSIDE RECORDS SUMMARY | 2024-12-23 16:22 | XMS_ITS | Encounter Summary ---
Author Organization [employer] Address [address] [facility] [address] [place] [address] Care Team Providers Care Tissue Specialist Name Role Phone Sunita Lezama MD Primary Care Provider [phone] Reason for Visit * Reason Onset Date Comments Durable Medical Equipment 05/22/2023 Encounter Details Date Type Department Care Team ([facility] st Contact Info) Description 05/22/2023 Telephone [facility] [address] [place] [address] Sunita Lezama MD [address] [place] [address] Durable Medical Equipment Social History Tobacco Use [...] Description 02/28/2025 10:00 AM EST Office Visit [facility] [address] [place], [place] [phone] Sunita Lezama MD [address] [place], [place] [phone] documented as of this encounter Visit Diagnoses Not on filedocumented in this encounter Additional Health Concerns Assessment Noted Time PHQ-9 Depression Total Score: 2 04/19/20 22 10:21 AM EST documented as of this encounter Care Teams Tissue Specialist Relationship Specialty Start Date End Date Sunita Lezama MD [address] [place] [address] PCP - General Family Medicine 04/02/21 documented as of this encounter
--- OUTSIDE RECORDS SUMMARY | 2024-12-23 16:22 | XMS_ITS | Patient Health Record ---
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 [address] [address] [place] [address] [id number] Erin Graves Self - patient is the [...]
--- OUTSIDE RECORDS SUMMARY | 2024-12-23 16:22 | XMS_ITS ---
Author Name Joshua MCWILLIAMS, Mr. Ishmael Hairston Address [address] [place] [address] Phone [phone] [facility] Care Team Providers Care Experimental Worker Name Role Phone Vu Lewis Unavailable [phone] Reason for Referral Not Available Allergies, adverse [...] (do not use for phone, instead use 86190-06) [facility] ([place]20[place] Essential (primary) hypertensionUnspecified osteoarthritis, unspecified siteDizziness and giddinessGastro-esophageal reflux disease without esophagitisOther constipationPolyneuropathy, unspecified New patient,40-59min; chronic exacerbation, 2 stable chronic or 1 acute illness add add modifier 95 for video (do not use for phone, instead use 32750-16) [facility] New patient,40-59min; chronic exacerbation, 2 stable chronic or 1 acute illness add add modifier 95 for video (do not use for phone, instead use 86738-40) [facility] New patient,40-59min; chronic exacerbation, 2 stable chronic or 1 acute illness add add modifier 95 for video (do not use for phone, instead use 32494-63) [facility] New patient,40-59min; chronic exacerbation, 2 stable chronic or 1 acute illness add add modifier 95 for video (do not use for phone, instead use 91082-25) [facility] New patient,40-59min; chronic exacerbation, 2 stable chronic or 1 acute illness add add modifier 95 for video (do not use for phone, instead use 80141-40) [facility]20[place] New patient,40-59min; chronic exacerbation, 2 stable chronic or 1 acute illness add add modifier 95 for video (do not use for phone, instead use 63663-97) [facility]20[place] Vital Signs Date of Collection Vitals [...] tive Time Current Smoking Status Never smoker 2024-11-27 10 Sex Female History of Procedures Procedures Service Procedure code Service date Servicing provider Phone# New patient,40-59min; chronic exacerbation, 2 stable chronic or 1 acute illness add add modifier 95 for video (do not use for phone, instead use 94465-34) 69883 2022-04-30 No Data Available No Data Availa [...] completed by mary evans and video using [employer] Tablet. Introductory visit with [facility] to establish care. Today, patient has [...]
--- OUTSIDE RECORDS SUMMARY | 2024-12-23 16:22 | XMS_ITS | Clinical Summary ---
Author Organization [facility] [address] [place] [address] [place] [address] Phone Care Team Providers Care Wood Sawyer Name Role Phone Sunita Lezama MD Primary Care Provider [phone] Encounters Date Type Department Care Team Description 11/12/2024 1:30 PM EDT - 11/12/2024 11:59 PM EDT Hospital Encounter Radiology Department [address] [phone] Encounter for screening mammogram for breast cancer Discharge Disposition: Home or Self Care from Last 3 Months Surgical History Surgery Date Site/Laterality Comments HYSTERECTOMY PROCEDURE: HISTORICAL HYSTERECTOMY CHOLECYSTECTOMY PROCEDURE: HISTORICAL CHOLECYSTECTOMY TUBAL LIGATION PROCEDURE: HISTORICAL TUBAL LIGATION OTHER SURGICAL HISTORY 04/12/2019 Right PROCEDURE: [place] SURGICAL ARTHROSCOPY SHOULDER W/ROTATOR CUFF RPR; COMMENT: Dr Evans CARPAL TUNNEL RELEASE 01/2020 Left PROCEDURE: HISTORICAL CARPAL TUNNEL REL; COMMENT: Dr Glenn Izaguirre CARPAL TUNNEL RELEASE 10/16/2020 Right PROCEDURE: HISTORICAL CARPAL TUNNEL REL; COMMENT: Dr. Glenn Izaguirre - [facility] History Medical History Date Comments MCI [...] this topic Medical Devices Implanted Type Area Venetian Blind Mechanic Device Identifier Shelf Expiration Date Model / Serial / Lot Felch Suture Q-Fix Od2.8 Mm - [id number] Implanted:Qty: 2 on 04/12/2019 by Wagner Evans MD Right: Shoulder [employer] - [employer] 12/23/2021 25-2800 / / [id number] Felch Suture Q-Fix Od2.8 Mm - [id number] Implanted:Qty: 1 on 04/12/2019 by Wagner Evans MD Right: Shoulder [employer] - [employer]THOPA[employer] 10/05/2021 25-2800 / / [id number] Felch Suture Q-Fix Od2.8 Mm - [id number] Implanted:Qty: 1 on 04/12/2019 by Wagner Evans MD Right: Shoulder [employer] - [employer]THOP[employer] 11/19/2021 25-2800 / / [id number] Procedures Procedure Name Priority Date/Time Associated Diagnosis [...] is recommended in 1 year. MAMMO LOCATION: [facility], [address] [place] [address], [address], . -------- FINAL REPORT -------- Dictated By: Ana Goodwin Dictated Date: 11/15/2024 18:19 ET Assigned Physician: Ana Goodwin Reviewed and Electronically Signed By: Ana Goodwin Signed Date: 11/15/2024 18:22 ET Workstation ID: [id number] Transcribed By: Self Edit Transcribed Date: 11/15/2024 [...] is recommended in 1 year. MAMMO LOCATION: [facility], [address] [place], [place], [address], . -------- FINAL REPORT -------- Dictated By: Ana Goodwin Dictated Date: 11/15/2024 18:19 ET Assigned Physician: Ana Goodwin Reviewed and Electronically Signed By: Ana Goodwin Signed Date: 11/15/2024 18:22 ET Workstation ID: [id number] Transcribed By: Self Edit Transcribed Date: 11/15/2024 [...] (World Health Organization Fracture Risk Assessment) [facility] Department of Internal Medicine recommends using National [...] (World Health Organization Fracture Risk Assessment) [facility] Department of Internal Medicine recommendsusing National Osteoporosis [...] ID:SCO Type:Not on file Address: [address] [place] [address] Care Teams Wood Sawyer Relationship Specialty Start Date End Date Sunita Lezama MD [address] [place], [place] [phone] PCP - General Family Medicine 11/12/24
--- OUTSIDE RECORDS SUMMARY | 2024-12-23 16:22 | XMS_ITS | Clinical Summary ---
Author Organization [employer] Address [address] [facility] [address] [place] [address] Care Team Providers Care Antenna Installer Name Role Phone Sunita Lezama MD Primary Care Provider [phone] Allergies Active Allergy Reactions Criticality Noted Date Comments Carvone 11/21/2022 Penicillin G Rash Low 05/09/2022 Penicillins Itching,Rash Low 05/06/2017 Medications polyethylene glycol, PEG, 3350 (MiraLax) 17 [...] AND CONTINUE FOR 6 HOURS 023 Active Diclofenac Sodium 1 % gel APPLY 5 G TOPICALLY 4 TIMES DAILY. 200 g 024 Active Calcium Carb-Cholecalcife rol 500-10 MG-MCG chewable tablet TOME GERALDINE TABLETA TODOS LOS MELCHOR 90 tablet 2 024 Active hydroCHLOROthiazi de (HYDRODiuril) 25 MG tablet Take 1 tablet (25 mg) by mouth Once per day. 90 tablet 1 025 Active meclizine (Antivert) 12.5 MG tabletIndications :Dizziness TOME GERALDINE TABLETA CADA OCHO HORAS CUANDO SEA NECESARIO FOR DIZZINESS 90 tablet 1 025 Active triamcinolone (Kenalog) 0.5 % ointment Apply topically 2 times daily. 90 g 025 Active rosuvastatin (Crestor) 40 MG tabletIndications :Hyperlipidemia, unspecified hyperlipidemia type Take 1 tablet (40 mg) by mouth Once per day. 90 tablet 1 025 Active diclofenac (Voltaren) 75 MG EC tabletIndications :Osteoarthritis of right knee, unspecified osteoarthritis type TOME 1 TABLETA POR VIA ORAL CADA 12 HORAS 60 tablet 2 025 Active omeprazole (PriLOSEC) [address] capsule TAKE 1 CAPSULE BY MOUTH TWICE A DAY 180 capsule 025 Active carvedilol (Coreg) 3.125 MG tabletIndications :Coronary artery disease, unspecified vessel or lesion type, unspecified whether angina present, unspecified whether [place] or transplanted heart TAKE 1 TABLET BY MOUTH TWICE A DAY 180 tablet 025 Active traMADol (Ultram) 50 MG tabletIndications :Chronic pain of right knee,Osteoarthrit is of patellofemoral joints of both knees Take 1 tablet (50 mg) by mouth every 8 (eight) hours if needed for severe pain for up to 14 days. 42 tablet 025 2024 Active omeprazole (PriLOSEC) [address] capsule TOME GERALDINE CAPSULA DOS VECES AL REGAN 180 capsule 1 025 2024 Discontinued carvedilol (Coreg) 3.125 MG tabletIndications :Coronary artery disease, unspecified vessel or lesion type, unspecified whether angina present, unspecified whether [place] or transplanted heart TOME GERALDINE TABLETA 2 VECES AL REGAN CON LAS COMIDAS 180 tablet 1 025 2024 Discontinued diclofenac (Voltaren) 75 MG EC tabletIndications :Osteoarthritis of right knee, unspecified osteoarthritis type TOME 1 TABLETA POR VIA ORAL CADA 12 HORAS 60 tablet 2 025 2024 Discontinued Active Problems Problem Noted Date Diagnosed Date Acute pain of right knee 2024 Assessment & Plan (2024 11:59 AM EDT): Given the mechanism of injury and symptoms, there is concern for possible ligament damage. Unable to extended knee. Significant swelling in joint. Plan: - Order MRI of the affected knee to evaluate for ligament damage - Patient reports no metal in body; MRI is safe to proceed - referral to orthopedics Left shoulder pain 01/12/2024 Assessment & Plan [...] ddx rotator cuff, will send to PT Neuropathy 04/30/2022 GERD (gastroesophageal reflux disease) 3 Chronic constipation 04/30/2022 COVID-19 04/19/2022 Assessment & Plan (04/19/2022 5:22 [...] Encounters Date Type Department Care Team Description 12/23/2024 3:30 PM EDT Office Visit [facility] [address] [place] [address] Sunita Lezama MD Chronic pain of right knee (Primary Dx); Osteoarthritis of patellofemoral joints of both knees 12/23/2024 Travel 12/21/2024 Telephone [facility] [address] [place] [address] Sunita Lezama MD chart prep 12/21/2024 Telephone [facility] [address] [place] [address] Sunita Lezama MD Nurse Triage 12/09/2024 Refill [facility] [address] [place] [address] Shailesh Gates MD Coronary artery disease, unspecified vessel or lesion type, unspecified whether angina present, unspecified whether [place] or transplanted heart 11/29/2024 Refill [facility] [address] [place] [address] Antonieta Del Angel MD Osteoarthritis of right knee, unspecified osteoarthritis type 11/23/2024 Results Follow-Up [facility] [address] [place], [place] [phone] Sunita Lezama MD MR Knee w/o Contrast Right 11/16/2024 Orders Only [facility] [address] [place] [address] ProviderBrandon MD 11/05/2024 11:00 AM EDT Clinical Support [facility] [address] [place], [place] [phone] Cheryl Selby RN MCI (mild cognitive impairment) [G31.84] 11/05/2024 Travel 2024 11:30 AM EDT Office Visit [facility] [address] [place] [address] Sunita Lezama MD Acute pain of right knee (Primary Dx); Hyperlipidemia, unspecified hyperlipidemia type 2024 Travel 10/27/2024 Telephone [facility] [address] [place] [address] Sunita Lezama MD Nurse Triage 10/15/2024 Results Follow-Up [facility] [address] [place] [address] Sunita Lezama MD CBC auto differential, Comprehensive Metabolic Panel, Lipid Panel, Standard, Additional followed-up results: 4 10/05/2024 Refill [facility] [address] [place] [address] Everly, Simona, PASSENGER BOOKING CLERK Dizziness 09/28/2024 Telephone [employer] [address] [place] [address]/ECHO ORDER from Last 3 Months Immunizations Immunization Administration Dates Next Due Influenza High-dose Quadriva [...] 20 12/23/2024 3:27 PM EDT Oxygen Saturation 97% 2024 11: 13 AM EDT Inhaled Oxygen Concentration - - Weight 90.2 kg (198 lb 12.8 oz) 12/23/2024 3:27 PM EDT Height 162.6 cm (5' 4 ) 2024 11:1 3 AM EDT Body Mass Index 34.12 2024 11:13 AM EDT Plan of Treatment Upcoming Encounters Date Type Department Care Team (Late st Contact Info) Description 02/28/2025 10:00 AM EST Office Visit [facility] [address] [place] [address] Sunita Lezama MD [address] [place] [address] Health Maintenance Due Date Last Done Comments Hepatitis C Screening 10/27/1965 RSV Patients and Patients Aged 60 years or older (1 - 1-dose 75+ series) 10/27/2022 COVID-19 Vaccine ( season) 2023 02/27/2021, 07/22/2020, 06/24/2020 Influenza Vaccine (#1) 2024 , 01/24/2023, 01/16/2022, Additional history exists Depression Screening 01/11/2025 01/12/2024, 01/12/20 24 SDOH Screening 01/11/2025 01/12/2024 Alcohol/Substance Use Screening 09/17/2025 09/17/2024 Tobacco Screening 12/23/2025 12/23/2024 Lipid Panel 09/23/2029 09/23/2024, 05/30, 04/03/2021 DTaP/Tdap/Td Vaccines (2 - Td or Tdap) 10/24/2032 10/24/2022 Zoster Vaccines Completed 08/15/2021, 06/20/2021 Pneumococcal Vaccine: 50+ Years Completed 12/25/2022, 07/28/2019 HIB Vaccines Aged Out No longer eligi [...] Procedure Name Priority Date/Time Associated Diagnosis Comments MR KNEE WO CONTRAST RIGHT Routine 11/21/2024 10:50 AM EDT Acute pain of right knee XR KNEE 4+ VIEWS LEFT Routine 11/16/2024 2:07 PM EDT HM MAMMOGRAPHY Routine 11/12/2024 8:31 AM EDT VITAMIN B12/FOLATE, SERUM PANEL Routine 09/23/2024 8:07 AM EDT Bilateral lower extremity edema B TYPE NATRIURETIC PEPTIDE (BNP) Routine 09/23/2024 8:07 AM EDT Bilateral lower extremity edema TSH W/REFLEX TO FT4 Routine 09/23/2024 8 :07 AM EDT Bilateral lower extremity edema LIPID PANEL, STANDARD Routine 09/23/2024 8:07 AM EDT Bilateral lower extremity edema COMPREHENSIVE METABOLIC PANEL Routine 09/23/2024 8:07 AM EDT Bilateral lower extremity edema CBC WITH AUTO DIFFERENTIAL Routine 09/23/2024 8:07 AM EDT Bilateral lower extremity edema URINALYSIS, COMPLETE, WITH REFLEX TO CULTURE Routine 09/23/2024 8:05 AM EDT Bilateral lower extremity edema from Last 3 Months Results * MR Knee w/o Contrast Right (11/21/2024 10:50 AM EDT) Anatomical Region Laterality Modality Magnetic Resonan ce 11/21/2024 10:5 0 AM EDT Narrative 11/22/2024 10:18 AM EDT [address] [address] Magnetic Resonance Report Signed Patient: Erin Silvestre MR#: [id number] : 1945 Acct:[id number] Age/Sex: 79 / F ADM Date: 11/21/24 Loc: HO.MRI Attending Dr: Sunita Lezama MD Ordering Physician: Sunita Lezama MD Date of Service: 11/21/24 Procedure(s): MR knee RT wo con Accession Number(s): [id number] cc: Sunita Lezama MD EXAMINATION: MR KNEE WITHOUT CONTRAST, RIGHT CLINICAL INFORMATION: Right knee pain 1 month, reduced range of motion, instability, numbness since a twisting injury PRIOR: X-ray April 02, 2021 FINDINGS: Menisci: Lateral Meniscus: Short linear fluid signal extends to the tibial peripheral margin of the posterior horn of the lateral meniscus on a single image. Medial Meniscus: Horizontal fluid signal extends from the peripheral margin to the femoral surface in the posterior horn of the medial meniscus. Meniscal body is degenerated and moderately extruded from the joint line. ACL/PCL: ACL is intact. It demonstrates intermediate signal. PCL is intact. It demonstrates intermediate signal centrally. Extensor mechanism: Small mildly complex joint effusion is evident. There is streaky edema in the portions of Hoffa's fat pad. There is trace fluid in the deep infrapatellar bursa. MCL/LCL: MCL is bowed outward by extruded meniscus. The meniscal femoral coronary ligament is attenuated the femoral attachment and indistinct. MCL demonstrates intermediate signal along the superficial bundle and centrally. LCL complex is intact. Articular cartilage: Patellofemoral Compartment: Deep partial full-thickness cartilage loss is present along the medial trochlea. There is associated reactive marrow signal change at the superior medial margin. Patellar cartilage is intact. Lateral Compartment: There is mild thinning of cartilage in the far posterior lateral femoral condyle. Articular cartilage is intact otherwise Medial Compartment: There is shallowness deep partial thickness cartilage loss in the central weightbearing region and far posterior medial femoral condyle. Medial tibial plateau demonstrates mild thinning of cartilage near the joint line. Bones/Marrow: Small marginal osteophytes are present along the medial joint line and medial trochlea. Soft tissues: There is a moderate-sized leaking Dowell's cyst. MR/MR knee RT wo con IMPRESSION: The body of the medial meniscus is mildly extruded from the joint line. It is degenerated, frayed, and torn. There is a horizontal tear involving the posterior horn the medial meniscus extending to the femoral surface. There is a possible tear involving the periphery of the posterior horn lateral meniscus. Mild osteoarthritis with cartilage loss most advanced in the medial compartment and medial trochlea. There is a small complex joint effusion raising question of underlying synovitis. Age-indeterminate superficial MCL grade 1 sprain. Grade 2 sprain versus tear of meniscal femoral coronary ligament of the femoral attachment. There is a moderate-sized leaking Dowell's cyst. Electronically signed by: Michael Alexandra MD 11/22/2024 10:15 AM EDT Dictated By: Michael Alexandra MD Signed By: <Electronically signed by Michael Alexandra MD in OV> 11/22/24 1015 DD/ 1050 TD/TT: 11/21/24 1116 It Security Consultant: Procedure Note Donotuseinterpreter, Image - 11/22/[address] [address] Magnetic Resonance Report Signed Patient: Sedrick SilvestreGarrisonR#: M [id number] : 1945cct:[id number] Age/Sex: 79 / FADM Date: 11/21/24 Loc: HO.MRI Attending Dr: Sunita Lezama MD Ordering Physician: Sunita Lezama MD Date of Service: 11/21/24 Procedure(s): MR knee RT wo con Accession Number(s): [id number] cc: Sunita Lezama MD EXAMINATION: MR KNEE WITHOUT CONTRAST, RIGHT CLINICAL INFORMATION: Right knee pain 1 month, reduced range of motion, instability, numbness since a twisting injury PRIOR: X-ray April 02, 2021 FINDINGS: Menisci: Lateral Meniscus: Short linear fluid signal extends to the tibial peripheral margin of the posterior horn of the lateral meniscus on a single image. Medial Meniscus: Horizontal fluid signal extends from the peripheral margin to the femoral surface in the posterior horn of the medial meniscus. Meniscal body is degenerated and moderately extruded from the joint line. ACL/PCL: ACL is intact. It demonstrates intermediate signal. PCL is intact. It demonstrates intermediate signal centrally. Extensor mechanism: Small mildly complex joint effusion is evident. There is streaky edema in the portions of Hoffa's fat pad. There is trace fluid in the deep infrapatellar bursa. MCL/LCL: MCL is bowed outward by extruded meniscus. The meniscal femoral coronary ligament is attenuated the femoral attachment and indistinct. MCL demonstrates intermediate signal along the superficial bundle and centrally. LCL complex is intact. Articular cartilage: Patellofemoral Compartment: Deep partial full-thickness cartilage loss is present along the medial trochlea. There is associated reactive marrow signal change at the superior medial margin. Patellar cartilage is intact. Lateral Compartment: There is mild thinning of cartilage in the far posterior lateral femoral condyle. Articular cartilage is intact otherwise Medial Compartment: There is shallowness deep partial thickness cartilage loss in the central weightbearing region and far posterior medial femoral condyle. Medial tibial plateau demonstrates mild thinning of cartilage near the joint line. Bones/Marrow: Small marginal osteophytes are present along the medial joint line and medial trochlea. Soft tissues: There is a moderate-sized leaking Dowell's cyst. MR/MR knee RT wo con IMPRESSION: The body of the medial meniscus is mildly extruded from the joint line. It is degenerated, frayed, and torn. There is a horizontal tear involving the posterior horn the medial meniscus extending to the femoral surface. There is a possible tear involving the periphery of the posterior horn lateral meniscus. Mild osteoarthritis with cartilage loss most advanced in the medial compartment and medial trochlea. There is a small complex joint effusion raising question of underlying synovitis. Age-indeterminate superficial MCL grade 1 sprain. Grade 2 sprain versus tear of meniscal femoral coronary ligament of the femoral attachment. There is a moderate-sized leaking Dowell's cyst. Electronically signed by: Michael Alexandra MD 11/22/2024 10:15 AM EDT Dictated By: Michael Alexandra MD Signed By: <Electronically signed by Michael Alexandra MD in OV> 11/22/24 1015 DD/ 1050 TD/TT: 11/21/24 1116 It Security Consultant: Sunita Lezama MD IMG MRI PROCEDURES Final Resu lt * XR Knee 4+ Views Left (11/16/2024 2:07 PM EDT) Anatomical Region Laterality Modality Lower Extremities, Knee [facility] 11/16/2024 2:07 PM EDT Narrative 11/16/2024 2:26 PM EDT [facility] [address] [place] [address] [place] [address] XRay Report Signed Patient: Erin Silvestre MR#: [id number] : 1945 Acct:[id number] Age/Sex: 79 / F ADM Date: 11/16/24 Loc: HO.HMGCX Attending Dr: Latanya BOWLING Ordering Physician: Latanya Burrows Date of Service: 11/16/24 Procedure(s): XR knee LT 4V Accession Number(s): [id number] cc: Latanya Burrows; Sunita Lezama MD EXAMINATION: XR KNEE, LEFT CLINICAL INFORMATION: M25.562 - Pain in left knee COMPARISON: None available. TECHNIQUE: Four views of the left knee. FINDINGS: There is no joint effusion. There is mild narrowing of the medial joint space. There is no soft tissue calcification. There are no osteophytes. No fracture or step-off is identified. XR/XR knee LT 4V IMPRESSION: Mild nonspecific medial joint space narrowing. Electronically signed by: Michael Alexandra MD 11/16/2024 02:23 PM EDT RP Dictated By: Michael Alexandra MD Signed By: <Electronically signed by Michael Alexandra MD in OV> 11/16/24 1423 DD/ 1407 TD/TT: 11/16/24 1413 It Security Consultant: Procedure Note Donotuseinterpreter, Image - 11/16/2024 [facility] [place] [address] XRay Report Signed Patient: Kenneth Silvestre#: M [id number] : 8Acct:[id number] Age/Sex: 79 / FADM Date: 11/16/24 Loc: .HMGCX Attending Dr: Latanya BOWLING Ordering Physician: Latanya Burrows Date of Service: 11/16/24 Procedure(s): XR knee LT 4V Accession Number(s): [id number] cc: Latanya Burrows; Sunita Lezama MD EXAMINATION: XR KNEE, LEFT CLINICAL INFORMATION: M25.562 - Pain in left knee COMPARISON: None available. TECHNIQUE: Four views of the left knee. FINDINGS: There is no joint effusion. There is mild narrowing of the medial joint space. There is no soft tissue calcification. There are no osteophytes. No fracture or step-off is identified. XR/XR knee LT 4V IMPRESSION: Mild nonspecific medial joint space narrowing. Electronically signed by: Michael Alexandra MD 11/16/2024 02:23 PM EDT RP Dictated By: Michael Alexandra MD Signed By: <Electronically signed by Michael Alexandra MD in OV> 11/16/24 1423 DD/ 1407 TD/TT: 11/16/24 1413 It Security Consultant: [facility] External Provider IMG XR PROCEDURES Final Result * Hm Mammography (11/12/2024 8:31 AM EDT) Anatomical Region Laterality Modality Other Historical Provider HEALTH MAINTENANCE Final Result * Vitamin B12 (Cobalamin) and Folate Panel, Serum (09/23/2024 8:07 AM EDT) Vitamin B12 679 200 - 900 pg/mL [facility] Comment:NORMAL 200-900 PG/ML INDETERMINATE 160-199 PG/ML DEFICIENT < 160 PG/ML Folate 10.8 > or = 4.0 ng/mL [facility] Comment:Reference Values:> o r = 4.0 ng/mL< 4.0 ng/mL suggests folate deficiency Methotrexate, aminopterin and folinic acid(leucovorin) are chemotherapeutic agents whose molecularstructures are similar to folate; therefore, the Architectfolate assay cannot be used for patients using these drugs. Blood Venous blood specimen / Unknown 09/23/2024 8:07 AM EDT 09/23/2024 11:44 AM EDT Sunita Lezama MD LAB BLOOD ORDERABLES Final Re sult Performing Organization Address City/[facility]/ZIP Co de Phone Number [facility] [address] [place] [phone] * TSH W/Reflex to FT4 (09/23/2024 8:07 AM EDT) TSH reflex Free T4 1.65 0.32 - 4.0 uIU/mL [facility] Blood Venous blood specimen / Unknown 09/23/2024 8:07 AM EDT 09/23/2024 11:44 AM EDT Sunita Lezama MD LAB BLOOD ORDERABLES Final Re sult [facility] [address] [place] [phone] * (ABNORMAL) CBC auto differential (09/23/2024 8:07 AM EDT) White Blood Count 10.9(H) 4.8 - 10.8 X10*3/uL [facility] Red Blood Count 4.64 4.20 - 5.50 X10*6/uL [facility] Hemoglobin 13.8 12.0 - 16.0 g/dl [facility] Hematocrit 41.3 37.0 - 47.0 % [facility] Mean Corpuscular Volume 89.0 80.0 - 98.0 fL [facility] Mean Corpuscular Hemoglobin 29.7 27.0 - 33.0 pg [facility] Mean Corpuscular HGB Conc 33.4 31.0 - 35.0 g/dl [facility] Red Cell Distribution Width 14.6 11.0 - 16.0 % [facility] Platelet Count 321 160 - 400 X10*3/uL [facility] Mean Platelet Volume 11.0 9.4 - 12.3 fL [facility] Neutrophils Percent Auto 61.5 45 - 73 % [facility] Imm Gran Pct Auto 0.5(H) 0.0 - 0.4 % [facility] Lymphocytes Percent Auto 23.9 20 - 40 % [facility] Monocytes Percent Auto 8.7 2 - 11 % [facility] Eosinophils Percent Auto 4.4(H) 0 - 4 % [facility] Basophils Percent Auto 1.0 0 - 2 % [facility] NRBC Pct Auto 0.0 0.0 - 0.2 /100WBC [facility] Neutrophils Absolute Auto 6.7 2.0 - 8.3 x10*3/uL [facility] Imm Gran Abs Auto 0.05(H) 0.00 - 0.03 X10*3/uL [facility] Lymphocytes Absolute Auto 2.6 1.2 - 4.9 X10*3/uL [facility] Monocytes Absolute Auto 0.9 0.1 - 1.2 X10*3/uL [facility] Eosinophils Absolute Auto 0.5(H) 0.0 - 0.4 X10*3/uL [facility] Basophils Absolute Auto 0.1 0.0 - 0.2 X10*3/uL [facility] NRBC Abs Auto 0.000 0.0 - 0.012 X10*3/uL [facility] Blood Venous blood specimen / Unknown 09/23/2024 8:07 AM EDT 09/23/2024 11:44 AM EDT us Sunita Lezama MD LAB BLOOD ORDERABLES Final Re sult Performing Organization Address [facility] Co de Phone Number [facility] [address] [place] [phone] * B Type Natriuretic Peptide (BNP) (09/23/2024 8:07 AM EDT) Pathologist [facility] B Type Natriuretic Peptide <10 <100 pg/mL [facility] Blood Venous blood specimen / Unknown 09/23/2024 8:07 AM EDT 09/23/2024 11:36 AM EDT us Sunita Lezama MD LAB BLOOD ORDERABLES Final Re sult Performing Organization Address [facility] Co de Phone Number [facility] [address] [place] [phone] * (ABNORMAL) Lipid Panel, Standard (09/23/2024 8:07 AM EDT) Triglycerides 162(H) <150 mg/dL [facility] Comment:Desirable Triglyceri de: less than 150 mg/dLBorderline High Triglyceride 150-199 mg/dLHigh Triglyceride: 200-499 mg/dLVery High Triglyceride: greater than or equal to 5OO mg/dL Cholesterol 248(H) <200 mg/dL [facility] Comment:Desirable Cholestero l: less than 200 mg/dLBorderline High Cholesterol: 200-239 mg/dLHigh Cholesterol: greater than 239 mg/dL LDL Cholesterol Calculated 144(H) <100 mg/dL [facility] Comment:Desirable LDL: less than 100 mg/dLNear Optimal/Above Optimal LDL: 110- 129 mg/dLBorderline High LDL: 130-159 mg/dLHigh LDL: 160-189 mg/dLVery High LDL: greater than or equal to 190 mg/dL HDL Cholesterol 72 >40 mg/dL [facility] Comment:Desirable HDL: great er than 40 mg/dL Note: This HDL assay may give artificially low results in patients with liver disease. Blood Venous blood specimen / Unknown 09/23/2024 8:07 AM EDT 09/23/2024 11:44 AM EDT us Sunita Lezama MD LAB BLOOD ORDERABLES Final Re sult [facility] [address] [place], [place] [phone] * (ABNORMAL) Comprehensive Metabolic Panel (09/23/2024 8:07 AM EDT) Sodium 141 135 - 145 mmol/L [facility] Potassium 4.4 3.3 - 5.1 mmol/L [facility] Chloride 103 96 - 108 mmol/L [facility] Carbon Dioxide 28 22 - 29 mmol/L [facility] Anion Gap 14 12 - 20 [facility] Urea Nitrogen (BUN) 19(H) 9 - 16 mg/dL [facility] Creatinine, Serum 0.90 0.5 - 1.4 mg/dL [facility] Estimated Glomerular Filt Rate >60 [facility] Comment:Chronic Kidney Disea se: Estimated GFR < 60 mL/min/[id number] Kidney Disease: Estimated GFR < 15 mL/min/1.73m2 Glucose 94 60 - 115 mg/dL [facility] Calcium 9.8 8.4 - 10.2 mg/dL [facility] Bilirubin, Total 0.8 0.0 - 1.0 mg/dL [facility] Aspartate Amino Transferase 24 5 - 31 U/L [facility] Alanine Aminotransferase 20 0 - 31 U/L [facility] Total Protein 7.8 6.5 - 8.0 g/dL [facility] Albumin Level 4.5 3.5 - 5.0 g/dL [facility] Alkaline Phosphatase 86 39 - 117 U/L [facility] Blood Venous blood specimen / Unknown 09/23/2024 8:07 AM EDT 09/23/2024 11:44 AM EDT us Sunita Lezama MD LAB BLOOD ORDERABLES Final Re sult [facility] [facility] [address] [place] [phone] * Urinalysis, Complete, with Reflex to Culture (09/23/2024 8:05 AM EDT) Color Urine Yellow [facility] Appearance Urine Clear [facility] PH 6.5 5.0 - 9.0 [facility] Glucose Urine UA Negative Negative mg/dL [facility] Urine Blood Negative Negative [facility] Specific [place] - Urine 1.020 1.005 - 1.025 [facility] Urine Protein Negative Neg-Trace mg/dL [facility] Urine Ketones Negative Negative mg/dL [facility] Nitrite Urine Negative Negative [facility] Leukocyte Esterase Urine Negative Negative [facility] RBC Urine 0-2 0 - 2 /HPF [facility] Urine WBC 0-5 0 - 5 /HPF [facility] Urine Squamous Epithelial Cell 11-20 0 - 2 /HPF [facility] Urine Bacteria 2+ None Seen [facility] Hyaline Casts, Urine 3-5 0 - 2 /LPF [facility] Urine 09/23/2024 8:05 AM EDT 09/23/2024 12:23 PM EDT Narrative [facility] - 09/23/2024 12:47 PM EDT Urine, Clean Catch us Sunita Lezama MD LAB URINE ORDERABLES Final Re sult [facility] [address] [place] [address] [phone] from Last 3 Months Insurance [facility] CARE HOME OPTIONS (HMO D-SNP) [facility] STANDARD Advance Directives Documents on File Type Date Recorded Patient Cafeteria Helper Expl anation Advance Directives and Livin g Will 11/08/2024 9:33 AM HCP MOLST form 11/08/2024 9:32 AM MOLST Advance Directives and Livin g Will 11/05/2024 12:50 PM Full Code Care Teams Antenna Installer Relationship Specialty Start Date End Date Sunita Lezama MD [address] [place] [address] PCP - General Family Medicine 04/02/21
--- OUTSIDE RECORDS SUMMARY | 2024-12-23 16:22 | XMS_ITS | Encounter Summary ---
Author Organization [employer] Address [address] [facility] 7t [place] [address] Care Team Providers Care Cigar Sorter Name Role Phone Sunita Lezama MD Primary Care Provider Reason for Visit * Reason Onset Date Comments Appointment Request 05/22/2023 Encounter Details Date Type Department Care Team ([facility] Contact Info) Description 05/22/2023 Telephone [facility] MEDICINE [address] [place] [address] Sunita Lezama MD [address] [place] [address] Appointment Request Social History Tobacco Use Types [...] Upcoming Encounters Date Type Department Care Team ([facility] st Contact Info) Description 02/28/2025 10:00 AM EST Office Visit [facility] MED & PEDS [address] [place] [address] Sunita Lezama MD [address] [place] [address] documented as of this encounter Visit Diagnoses Not on filedocumented in this encounter Additional Health Concerns Assessment Noted Time PHQ-9 Depression Total Score: 2 04/19/20 22 10:21 AM EST documented as of this encounter Care Teams Cigar Sorter Relationship Specialty Start Date End Date Sunita Lezama MD [address] [place] [phone] PCP - General Family Medicine 04/02/21 documented as of this encounter
--- OUTSIDE RECORDS SUMMARY | 2024-12-23 16:22 | XMS_ITS | Encounter Summary ---
Author Organization [employer] Address [address] [facility] 7t [place] [address] Care Team Providers Care Educational Fundraising Director Name Role Phone Sunita Lezama MD Primary Care Provider [phone] Encounter Details Date Type Department Care Team ([facility] st Contact Info) Description 06/11/2023 Abstract [facility] [address] [place] [address] Sunita Lezama MD [address] [place], [place] [phone] Social History Tobacco Use Types Packs/Day Years [...] as of this encounter Plan of Treatment Upcoming Encounters Date Type Department Care Team (Late st Contact Info) Description 02/28/2025 10:00 AM EST Office Visit [facility] MED & PEDS [address] [place] [address] Sunita Lezama MD [address] [place] [address] documented as of this encounter Visit Diagnoses Not on filedocumented in this encounter Additional Health Concerns Assessment Noted Time PHQ-9 Depression Total Score: 2 04/19/20 22 10:21 AM EST documented as of this encounter Care Teams Educational Fundraising Director Relationship Specialty Start Date End Date Sunita Lezama MD [address] [place] [address] PCP - General Family Medicine 04/02/21 documented as of this encounter
--- OUTSIDE RECORDS SUMMARY | 2024-12-23 16:22 | XMS_ITS | Clinical Summary ---
Author Organization [facility] Address [address] [place] [address] Care Team Providers Care Financial Compliance Examiner Name Role Phone Unavailable Primary Care Provider [...] this topic Medical Devices Implanted Type Area Can Crimper Device Identifier Shelf Expiration Date Model / Serial / Lot [place] Suture Q-Fix Od2.8 Mm - [id number] - [id number] Implanted:Qty: 2 on 04/12/2019 by Wagner Evans MD at [facility] Right: Shoulder [employer] 12/23/2021 25-2800 / / [id number] [place] Suture Q-Fix Od2.8 Mm - [id number] - [id number] Implanted:Qty: 1 on 04/12/2019 by Wagner Evans MD at [facility] Right: Shoulder [employer] 10/05/2021 25-2800 / / [id number] [place] Suture Q-Fix Od2.8 Mm - [id number] - [id number] Implanted:Qty: 1 on 04/12/2019 by Wagner Evans MD at [facility] Right: Shoulder [employer] 11/19/2021 25-2800 / / [id number]
--- OUTSIDE RECORDS SUMMARY | 2024-12-23 16:23 | XMS_ITS | Encounter Summary ---
Author Organization [employer] Address [address] [facility] 7t [place] [address] Care Team Providers Care Casing In Line Setter Name Role Phone Sunita Lezama MD Primary Care Provider [phone] Reason for Visit * Reason Onset Date Comments Nurse Triage 12/21/2024 Encounter Details Date Type Department Care Team ([facility] Contact Info) Description 12/21/2024 Telephone [facility] MED & PEDS [address] [place], [place] [phone] Sunita Lezama MD [address] [place] [address] Nurse Triage Social History Tobacco Use Types Packs/Day Years [...] encounter Miscellaneous Notes * Telephone Encounter - Teresita Baum RN - 12/21/2024 11:26 AM EDT Call returned to Erin Porter to triage below at [phone]. No freelance interpreter/translator needed as this administrative underwriter speaks German. Pt granddaughter answers. Signed HIPAA / registration 2023. Advised granddaughter pt needs to sign new authorization. Did not provide any PHI. Granddaughter States ptalready seen for this by PCP , and seen by ortho but pain continues. Pt wants appt with PCP. Given appt with PCP this week. Protocol Used: Knee Pain (Adult) Protocol-Based Disposition: See in Office or Video Visit within 2 Weeks Future Appointments Date Time Provider Department Center 12/23/2024 3:30 PM Sunita Lezama MD [facility] Insurance verified as active per Real Time Eligibility in [facility]. Video visit offer not recorded Positive Triage Question: * Knee giving way (or buckling) when walking is a chronic symptom (recurrent or ongoing AND lasting> 4 weeks) * All higher-acuity triage questions were negative Care Advice Discussed: * Reasons To Call Back - You become worse * Telephone Encounter - Cristobal Marquez - 12/21/2024 11:13 AM EDT Symptoms: Knee Pain - Not From Injury, Leg Pain - Not From Injury Outcome: Schedule an urgent appointment (within 1 hour) or talk to a nurse or provider soon Reason: Severe pain now The caller accepted this outcome. Contact pt granddaughter at [phone] documented in this encounter Plan of Treatment Upcoming Encounters Date Type Department Care Team ([facility] st Contact Info) Description 02/28/2025 10:00 AM EST Office Visit [facility] MED & PEDS [address] [place] [address] Sunita Lezama MD [address] [place] [address] documented as of this encounter Visit Diagnoses Not on filedocumented in this encounter Additional Health Concerns Assessment Noted Time PHQ-9 Depression Total Score: 0 01/12/20 24 9:02 AM EDT documented as of this encounter Care Teams Casing In Line Setter Relationship Specialty Start Date End Date Sunita Lezama MD [address] [place] [address] PCP - General Family Medicine 04/02/21 documented as of this encounter
--- OUTSIDE RECORDS SUMMARY | 2024-12-23 16:23 | XMS_ITS | Encounter Summary ---
Author Organization [employer] Address 75 [facility] 7t [place] [address] Care Team Providers Care Skiver Blockers Name Role Phone Sunita Lezama MD Primary Care Provider [phone] Encounter Details Date Type Department Care Team (Late st Contact Info) Description 11/13/2023 Orders Only [facility] CHC MED & PEDS [address] [place], [place] [phone] Provider, MD Brandon Social History Tobacco Use [...] Description 02/28/2025 10:00 AM EST Office Visit [facility] CHC MED & PEDS [address] [place] [address] Sunita Lezama MD [address] [place] [address] documented as of this encounter Procedures Procedure Name Priority Date/Time Associated Diagnosis Comments MAMMOGRAPHY SCREENING Routine 11/11/2023 9:04 AM EDT documented in this encounter Results * MAMMOGRAPHY SCREENING (11/11/2023 9:04 AM EDT) Anatomical Region Laterality Modality Breast Left Mammography us Historical Provider MD CROWELL BI PROCEDURES Final R esult documented in this encounter Visit Diagnoses Not on filedocumented in this encounter Additional Health Concerns Assessment Noted Time PHQ-9 Depression Total Score: 2 04/19/20 22 10:21 AM EST documented as of this encounter Care Teams Skiver Blockers Relationship Specialty Start Date End Date Sunita Lezama MD [address] [place] [phone] PCP - General Family Medicine 04/02/21 documented as of this encounter
--- OUTSIDE RECORDS SUMMARY | 2024-12-23 16:23 | XMS_ITS | Encounter Summary ---
Author Organization [employer] Address [address] [facility] 7t [place] [address] Care Team Providers Care Language Specialist Name Role Phone Sunita Lezama MD Primary Care Provider [phone] Encounter Details Date Type Department Care Team (Latest Contact Info) Description 12/23/2024 Travel Social History Tobacco Use Types Packs/Day Years [...] Description 02/28/2025 10:00 AM EST Office Visit [facility] MED & PEDS [address] [place] [address] Sunita Lezama MD [address] [place] [address] documented as of this encounter Visit Diagnoses Not on filedocumented in this encounter Additional Health Concerns Assessment Noted Time PHQ-9 Depression Total Score: 0 01/12/20 24 9:02 AM EDT documented as of this encounter Care Teams Language Specialist Relationship Specialty Start Date End Date Sunita Lezama MD [address] [place] [address] PCP - General Family Medicine 04/02/21 documented as of this encounter
--- OUTSIDE RECORDS SUMMARY | 2024-12-23 16:23 | XMS_ITS | Encounter Summary ---
Author Organization [employer] Address [address] [facility] 7t [place] [address] Care Team Providers Care Lure Maker Name Role Phone Sunita Lezama MD Primary Care Provider Reason for Visit * Reason Comments Med Refill Encounter Details Date Type Department Care Team ([facility] st Contact Info) Description 07/20/2022 Refill [facility] CHC MED & PEDS [address] [place], [place] [phone] Falguni Fried MD Generalized abdominal pain Social [...] PM EDT This is a not a plate worker medication this is for short term, at this moment will refused this request documented in this encounter Plan of Treatment Upcoming Encounters Date Type Department Care Team (Late st Contact Info) Description 02/28/2025 10:00 AM EST Office Visit [facility] MED & PEDS [address] [place] [address] Suinta Lezama MD [address] [place] [address] documented as of this encounter Visit Diagnoses Diagnosis Generalized abdominal pain Abdominal pain, generalized documented in this encounter Additional Health Concerns Assessment Noted Time PHQ-9 Depression Total Score: 2 04/19/20 22 10:21 AM EST documented as of this encounter Care Teams Lure Maker Relationship Specialty Start Date End Date Sunita Lezama MD [address] [place] [address] PCP - General Family Medicine 04/02/21 documented as of this encounter
--- OUTSIDE RECORDS SUMMARY | 2024-12-23 16:23 | XMS_ITS | Encounter Summary ---
Author Organization [employer] Address [address] [facility] 7t [place] [address] Care Team Providers Care Open Source Developer Name Role Phone Sunita Lezama MD Primary Care Provider [phone] Reason for Visit * Reason Onset Date Comments chart prep 12/21/2024 Encounter Details Date Type Department Care Team ([facility] Contact Info) Description 12/21/2024 Telephone [facility] CHC MED & PEDS [address] [place], [place] [phone] Sunita Lezama MD [address] [place] [address] chart prep Social History Tobacco Use Types Packs/Day Years [...] encounter Miscellaneous Notes * Telephone Encounter - Genna Uribe [place] - 12/21/2024 2:32 PM EDT Chart Prep Labs: not done Images: done Referrals: complete Vaccines due: Flu and RSV Screenings: Overdue care gaps: SBIRT, SDOH, PHQ-9, and Disability screen documented in this encounter Plan of Treatment Upcoming Encounters Date Type Department Care Team (Late st Contact Info) Description 02/28/2025 10:00 AM EST Office Visit [facility] CH[facility] MED & PEDS [address] [place] [address] Sunita Lezama MD [address] [place] [address] documented as of this encounter Visit Diagnoses Not on filedocumented in this encounter Additional Health Concerns Assessment Noted Time PHQ-9 Depression Total Score: 0 01/12/20 24 9:02 AM EDT documented as of this encounter Care Teams Open Source Developer Relationship Specialty Start Date End Date Sunita Lezama MD [address] [place] [id number] PCP - General Family Medicine 04/02/21 documented as of this encounter
--- OUTSIDE RECORDS SUMMARY | 2024-12-23 16:23 | XMS_ITS | Encounter Summary ---
Author Organization [employer] Address [address] [facility] 7t [place] [address] Care Team Providers Care Electronic Components Assembler Name Role Phone Sunita Lezama MD Primary Care Provider [phone] Encounter Details Date Type Department Care Team (Late st Contact Info) Description 11/16/2024 Orders Only [facility] CHC MED & PEDS [address] [place], [place] [phone] Provider, MD Brandon Social History Tobacco Use [...] Upcoming Encounters Date Type Department Care Team ([facility] st Contact Info) Description 02/28/2025 10:00 AM EST Office Visit [facility] MED & PEDS [address] [place] [address] Sunita Lezama MD [address] [place] [address] documented as of this encounter Procedures Procedure Name Priority Date/Time Associated Diagnosis Comments XR KNEE 4+ VIEWS LEFT Routine 11/16/2024 2:07 PM EDT MAMMOGRAPHY Routine 11/12/2024 8:31 AM EDT documented in this encounter Results * XR Knee 4+ Views Left (11/16/2024 2:07 PM EDT) Anatomical Region Laterality Modality Lower Extremities, Knee Left Radiogra phic Imaging 11/16/2024 2:07 PM EDT Narrative 11/16/2024 2:26 PM EDT [facility] [address] [place] [address] [place] [address] XRay Report Signed Patient: Erin Silvestre MR#: [id number] : 1945 Acct:[id number] Age/Sex: 79 / F ADM Date: 11/16/24 Loc: HO.HMGCX Attending Dr: Latanya BOWLING Ordering Physician: Latanya Burrows Date of Service: 11/16/24 Procedure(s): XR knee LT 4V Accession Number(s): [id number] cc: Latanya Burrows; Sunita Lezama MD EXAMINATION: [...] Michael Alexandra MD 11/16/2024 02:23 PM EDT Dictated By: Michael Alexandra MD Signed By: <Electronically signed by Michael Alexandra MD in OV> 11/16/24 1423 DD/ 1407 TD/TT: 11/16/24 1413 Surgical Garment Inspector: Procedure Note Donotuseinterpreter, Image - 11/16/2024 [facility] [address] [place] [address] XRay Report Signed Patient: Kenneth Silvestre#: [id number] : 8Acct:[id number] Age/Sex: 79 / FADM Date: 11/16/24 Loc: HO.HMGCX Attending Dr: Latanya BOWLING Ordering Physician: Latanya Burrows Date of Service: 11/16/24 Procedure(s): XR knee LT 4V Accession Number(s): [id number] cc: Latanya Burrows; Sunita Lezama MD EXAMINATION: [...] Michael Alexandra MD 11/16/2024 02:23 PM EDT Dictated By: Michael Alexandra MD Signed By: <Electronically signed by Michael Alexandra MD in OV> 11/16/24 1423 DD/ 1407 TD/TT: 11/16/24 1413 Surgical Garment Inspector: [facility] External Provider IMG XR PROCEDURES Final Result * Hm Mammography (11/12/2024 8:31 AM EDT) Anatomical Region Laterality Modality Other Historical Provider HEALTH MAINTENANCE Final Result documented in this encounter Visit Diagnoses Not on filedocumented in this encounter Additional Health Concerns Assessment Noted Time PHQ-9 Depression Total Score: 0 01/12/20 24 9:02 AM EDT documented as of this encounter Care Teams Electronic Components Assembler Relationship Specialty Start Date End Date Sunita Lezama MD [address] [place] [address] PCP - General Family Medicine 04/02/21 documented as of this encounter
[2024-12-23 17:38] LABS: MANUAL DIFF FLAG NO
[2024-12-23 17:44] LABS: Hematocrit 39.7 % (37.0-47.0); Hemoglobin 13.4 g/dl (12.0-16.0); Imm Gran Abs Auto 0.04 X10*3/uL (0.00-0.03); Imm Gran Pct Auto 0.3 % (0.0-0.4); Lymphocytes Absolute Auto 4.3 X10*3/uL (1.2-4.9); Mean Corpuscular HGB Conc 33.8 g/dl (31.0-35.0); Mean Corpuscular Hemoglobin 30.0 pg (27.0-33.0); Mean Corpuscular Volume 88.8 fL (80.0-98.0); NRBC Abs Auto 0.000 X10*3/uL (0.0-0.012); NRBC Pct Auto 0.0 /100WBC (0.0-0.2); Platelet Count 246 X10*3/uL (160-400); Red Blood Count 4.47 X10*6/uL (4.20-5.50); White Blood Count 11.5 X10*3/uL (4.8-10.8)
[2024-12-23 17:53] LABS: Cholesterol 195 mg/dL (<200); HDL Cholesterol 73 mg/dL (>40); Triglycerides 200 mg/dL (<150)
== END 2024-12-23 16:09 | disposition home or self-care (01) ==
LOC: HO.CHCLDS 16:08
PROVIDERS: Visit Provider Family Medicine
DX: E78.5 Hyperlipidemia, unspecified (principal); D72.10 Eosinophilia, unspecified
CPT/HCPCS: 36415; 80061; 85025